=== PATIENT | female | born 1965 | race Caucasian/White ===

== ENCOUNTER 2017-03-19 22:14 | Inpatient (IN) | payer MEDICAID ==
[~2017-03-19] VITALS: Ht 162.6 cm; Wt 59.9 kg
--- NOTE | 2017-03-19 22:14 | NUR ---
MICHAEL ALS TO ER BED 3
--- NOTE | 2017-03-19 22:14 | NUR ---
Patient being evaluated by physician at bedside.
[2017-03-19 22:16] VITALS: BP 166/113
[2017-03-19] MEDS ORDERED: NACL 0.9% 1,000 ML IV ONE (22:16)
[2017-03-19] MEDS ORDERED: methylPREDNISolone SS 125 MG in WATER STERILE 2 ML IV ONE (22:20)
[2017-03-19] MEDS ORDERED: ALBUTEROL SULFATE/IPRATROPIU 3 ML SOL IH ONE (22:20)
[2017-03-19 22:30] VITALS: BP 166/113
[2017-03-19 22:46] LABS: BASOPHILS # (AUTO) 0.1 K/uL (0.00-0.22); BASOPHILS % (AUTO) 1.6 % (0.0-2.0); EOSINOPHILS # (AUTO) 0.3 K/uL (0-0.4); EOSINOPHILS % (AUTO) 3.3 % (0.0-4.0); HEMATOCRIT 37.4 % (36-48); HEMOGLOBIN 11.7 g/dL (12.0-16.0); LYMPHOCYTES # (AUTO) 1.5 K/uL (2.5-16.5); MEAN CORPUSCULAR HEMOGLOBIN 26 pg (27-31); MEAN CORPUSCULAR HGB CONC 31 g/dL (33-37); MEAN CORPUSCULAR VOLUME 85 fL (80-94); MONOCYTES # (AUTO) 0.5 K/uL (0.8-1.0); MONOCYTES % (AUTO) 5.6 % (1.7-9.3); NEUTROPHILS # (AUTO) 6.1 K/uL (1.8-7.7); NEUTROPHILS % (AUTO) 71.5 % (42.2-75.2); PLATELET COUNT (AUTO) 287 K/uL (140-450); RED BLOOD CELL COUNT(AUTO) 4.42 MIL/uL (4.20-5.40); RED CELL DISTRIBUTION WIDTH 13.9 % (11.6-13.7); WHITE BLOOD COUNT (AUTO) 8.5 K/uL (4.8-10.8)
[2017-03-19 23:00] LABS: ALBUMIN 2.9 g/dL (3.4-5.0); ANION GAP 12.2 (8-16); CALCIUM 8.2 mg/dL (8.5-10.1); CARBON DIOXIDE 26.2 mmol/L (21-32); POTASSIUM 4.4 mmol/L (3.5-5.1); TOTAL BILIRUBIN 0.9 mg/dL (0.0-1.0); TOTAL PROTEIN, SERUM 6.3 g/dL (6.4-8.2)
[2017-03-19] MEDS ORDERED: FUROSEMIDE 40 MG/4 ML VIAL IVP SCH (23:05)
[2017-03-19 23:10] LABS: LACTIC ACID 0.7 mmol/L (0.4-2.0)
[2017-03-19] MEDS ORDERED: ASPIRIN 325 MG TAB PO ONE (23:10)
[2017-03-19 23:15] LABS: BLOOD GAS BASE EXCESS -4.3 mmol/L (-2.0-2.0); BLOOD GAS HCO3 21.8 mmol/L; BLOOD GAS PCO2 43.9 mmHg (20-50); BLOOD GAS PH 7.314 (7.35-7.45); BLOOD GAS PO2 151.4 mmHg
[2017-03-19 23:15] LABS: INR 1.2 (0.8-1.2)
[2017-03-19 23:16] LABS: BLOOD GAS O2 SAT% 98.5 % (92.0-98.5)
[2017-03-19] MEDS ORDERED: NACL 0.9% 500 ML IV SCH (23:49)
[2017-03-19] MEDS ORDERED: HYDROcodone/APAP 5/325 MG 1 TAB TAB PO PRN (23:50)
[2017-03-19] MEDS ORDERED: DOCUSATE SODIUM 100 MG GELCAP PO PRN (23:50)
[2017-03-19] MEDS ORDERED: ONDANSETRON 4 MG/2 ML VIAL IVP PRN (23:50)
[2017-03-19] MEDS ORDERED: MORPHINE SULFATE 2 MG/ML SYR IVP PRN (23:50)
[2017-03-19] MEDS ORDERED: ACETAMINOPHEN 325 MG TAB PO PRN (23:50)
[2017-03-20] VITALS (10 sets, daily range): BP systolic 129–179; BP diastolic 85–141
[2017-03-20] MEDS ORDERED: ALBUTEROL SULFATE/IPRATROPIU 3 ML SOL IH PRN ×2 (00:25→07:25)
[2017-03-20 00:42] LABS: APPEARANCE,URINE CLEAR (CLEAR); BILIRUBIN,URINE NEGATIVE (NEGATIVE); BLOOD, URINE NEGATIVE (NEGATIVE); COLOR,URINE YELLOW (YELLOW); LEUKOCYTE ESTERASE ,URINE NEGATIVE (NEGATIVE); NITRITE, URINE NEGATIVE (NEGATIVE); PH,URINE 5.5 (5.0-9.0); PROTEIN,URINE TRACE (NEGATIVE); UGLUCOSE NEGATIVE (NEGATIVE); UROBILINOGEN,URINE 0.2 EU/dL (0.2 - 1)
[2017-03-20 00:54] LABS: BACTERIA,URINE FEW /HPF (None Seen); HYALINE CASTS, URINE 0-3 /LPF (None Seen); MUCUS,URINE 1+ /LPF (None Seen); RBC,URINE 0-5 (RARE) /HPF (0-5); SQUAMOUS EPITHELIAL CELL,UR 0-3 (FEW) /LPF (0-3 (FEW)); WBC,URINE 0-5 (RARE) /HPF (0-5)
[2017-03-20 00:57] LABS: CHOL/HDL RATIO 3.3 (1-4.5); FREE T4 (FREE THYROXINE) 0.93 ng/dL (0.76-1.46); THYROID STIMULATING HORMONE 3.29 uIU/mL (0.34-3.76)
[2017-03-20 00:57] LABS: AMPHETAMINE, URINE POS. ng/ml (NEG <=1000); BARBITURATE, URINE NEG. ng/ml (NEG <=200); BENZODIAZEPINE, URINE NEG. ng/mL (NEG <=200); CANNABINOID, URINE NEG. ng/mL (NEG <=50); COCAINE, URINE NEG. ng/mL (NEG <=300); OPIATE, URINE NEG. ng/mL (NEG <=2000); PHENCYCLIDINE SCREEN,URINE NEG. ng/mL (NEG <=25)
--- NOTE | 2017-03-20 01:15 | NUR ---
RECEIVED PATIENT FROM ER VIA [facility] WITH CHARGE NURSE BARRERA RN, BENNIE RN, AND LOI RT. PATIENT IS ABLE TO SELF AMBULATE WITH MINIMAL ASSISTANCE FROM [facility] ONTO ICU BED 6. PATIENT IS ON BIPAP WITH SETTINGS OF I/E 10/5, RATE 12, AND FIO2 40%. NO SIGNS OF RESPIRATORY DISTRESS OR SOB NOTED. BREATH SOUNDS ARE CLEAR UPON AUSCULTATION AND BOWEL SOUNDS ARE PRESENT. THERE IS A #22 IN THE PATIENT'S LEFT ANTECUBITAL. SITE IS DRY, INTACT, AND PATENT. PATIENT IS AFEBRILE. MRSA SWAB COLLECTED. ORIENTED PATIENT TO SURROUNDINGS, WITH PATIENT VERBALIZED UNDERSTANDING. EXPLAINED TO PATIENT TONIGHT'S PLAN OF CARE IS MEDICATION ADMINISTRATION, VITALS Q4H, AND SUPPLEMENTAL OXYGEN DELIVERY VIA BIPAP. PATIENT VERBALIZED UNDERSTANDING. HOB AT 30 DEGREES WITH BED IN LOW POSITION. WILL CONTINUE TO MONITOR PATIENT.
--- NOTE | 2017-03-20 01:45 | NUR ---
CHARGE NURSE VARSHA RN SPOKE TO COMMISSIONS COORDINATOR RESIDENT DR. MCLEAN REGARDING PATIENT'S BP 182/140. DOCTOR TO PUT IN NEW ORDERS. WILL FOLLOW UP WITH NEW DOCTOR'S ORDERS.
--- NOTE | 2017-03-20 02:00 | NUR ---
Patient will be admitted to care of DR FULTON. Admited to TELE. Will go to room ICU #6. Belongings list completed. Report to RAMOS GRAHAM.
--- NOTE | 2017-03-20 02:06 | NUR ---
PATIENT'S BP IS 189/127. NO NEW ORDERS ENTERED. PAGED WEAPONS MECHANIC FOR DR. VERDUGO TO FOLLOW UP FOR NEW ORDERS REGARDING PATIENT'S BLOOD PRESSURE.
--- NOTE | 2017-03-20 02:08 | NUR ---
SPOKE TO DR. MCELAN AND EXPLAINED TO HER PATIENT'S BP IS 189/127 AT 0200 AND NO NEW ORDERS HAVE BEEN ENTERED. DR. MCLEAN STATED SHE WILL PUT IN NEW ORDERS. WILL FOLLOW UP WITH DOCTOR'S ORDERS.
[2017-03-20] MEDS: hydrALAZINE 20 MG/ML VIAL IVP PRN ×2 (02:28→08:21)
--- NOTE | 2017-03-20 02:30 | NUR ---
PATIENT RESTING COMFORTABLY IN BED. PATIENT ON BIPAP WITH SETTINGS OF I/E 10/5, RATE 12, AND FIO2 40%. NO SIGNS OF SOB NOTED. HOB AT 30 DEGREES WITH BED IN LOW POSITION. CONTINUE TO MONITOR PATIENT.
[2017-03-20] MEDS ORDERED: hydrALAZINE 20 MG/ML VIAL ONE (02:31)
--- NOTE | 2017-03-20 04:30 | NUR ---
ASSISTED PATIENT ONTO BEDPAN TO VOID. OUTPUT OF 570ML NOTED. PERINEAL CARE PROVIDED. NO SIGNS OF RESPIRATORY DISTRESS OR SOB NOTED. WILL CONTINUE TO MONITOR PATIENT.
--- NOTE | 2017-03-20 05:45 | NUR ---
PATIENT RESTING COMFORTABLY IN BED. NO SIGNS OF SOB OR RESPIRATORY DISTRESS NOTED. HOB AT 30 DEGREES WITH BED IN LOW POSITION. WILL CONTINUE TO MONITOR PATIENT.
--- NOTE | 2017-03-20 06:00 | NUR ---
DOG LICENSE OFFICER SUPERVISOR GRACIE AT BEDSIDE FOR SCHEDULED LAB DRAWS.
--- NOTE | 2017-03-20 06:30 | NUR ---
REPORT GIVEN TO CHARGE NURSE ROSANA RN FOR CONTINUITY OF CARE. PATIENT WILL BE TRANSFERRED TO MEDICAL-SURGICAL/TELEMETRY UNIT ROOM 105A.
[2017-03-20 06:32] LABS: ANION GAP 12.9 (8-16); CALCIUM 8.1 mg/dL (8.5-10.1); CREATININE 0.8 mg/dL (0.6-1.3); POTASSIUM 3.9 mmol/L (3.5-5.1)
--- NOTE | 2017-03-20 06:32 | NUR ---
PATIENT TRANSFERRED OFF UNIT TO [facility] ROOM 105A WITH OPERATING ROOM AIDE MIRNA GRAHAM, JOHNNY TRAVIS, LYNDA BRADLEYN, AND NUVIA MACARIO.
--- NOTE | 2017-03-20 06:35 | NUR ---
RECEIVED PT FROM ICU TRANSFER FROM [facility]. PT IN STABLE CONDITION. AWAKE,ALERT AND ORIENTED X4. ON TELE-ST. BEDREST. IVF ON LT AC 318. CLEAR AND INTACT. RT HERE UPON TRANSFER, BIPAP OFF, PLACED ON 023L/NC. O2 SAT 99%-1005. BP 151/98. NO DISCOMFORT NOR PAIN NOTED. PLACED COMFORTABLY IN BED. CALL LIGHT PLACED WITHIN EASY REACH. INSTRUCTED TO CALL IF NEED ASSISTANCE. WILL CONTINUE TO MONITOR.
[2017-03-20 06:43] LABS: MAGNESIUM 1.6 mg/dL (1.8-2.4)
--- NOTE | 2017-03-20 07:07 | NUR ---
RECEIVED REPORT FROM NIGHT RN. PT RESTING IN BED. AAOX4. NO S/S OF ACUTE DISTRESS. ON O2 3L NC. IV SITE PATENT AND INTACT. CALL LIGHT WITHIN REACH. SAFETY MEASURES ENSURED. WILL CONTINUE TO MONITOR.
[2017-03-20] MEDS ORDERED: MAG SULF 2000 MG/WATER PREMIX 50 ML IV SCH (07:38)
[2017-03-20] MEDS: PANTOPRAZOLE 40 MG INJ VIAL IVP SCH (08:20)
[2017-03-20] MEDS: FUROSEMIDE 40 MG/4 ML VIAL IVP SCH (08:21)
[2017-03-20] MEDS: FAMOTIDINE 20 MG TAB PO SCH (08:22)
[2017-03-20] MEDS: DOCUSATE SODIUM 100 MG GELCAP PO SCH ×2 (08:22→20:35)
[2017-03-20] MEDS ORDERED: FUROSEMIDE 20 MG/2 ML VIAL IVP SCH (09:00)
--- NOTE | 2017-03-20 09:11 | NUR ---
PATIENT HAS BEEN SCREENED AND CATEGORIZED MODERATE NUTRITION RISK. PATIENT WILL BE SEEN WITHIN 3-5 DAYS OF ADMISSION. 03/22/17-03/24/[address] Addendum: 03/21/17 at [address] [facility] CONSULT RECEIVED ON 03/20/17 - 1224 FOR "MALNUTRITION". PATIENT WILL BE SEEN WITHIN 1-2 DAYS OF ENTERED CONSULT. 03/20/17-03/21/[address]
--- NOTE | 2017-03-20 10:40 | NUR ---
PT RESTING IN BED. NO S/S OF ACUTE DISTRESS. ON O2 3L NC. CALL LIGHT WITHIN REACH. SAFETY MEASURES ENSURED. WILL CONTINUE TO MONITOR.
[2017-03-20] MEDS ORDERED: ALBUTEROL SULFATE/IPRATROPIU 3 ML SOL IH SCH (11:00)
--- NOTE | 2017-03-20 11:51 | NUR ---
PT SLEEPING IN BED. NO S/S OF ACUTE DISTRESS. ON O2 3L NC. CALL LIGHT WITHIN REACH. SAFETY MEASURES ENSURED. WILL CONTINUE TO MONITOR.
[2017-03-20] MEDS: methylPREDNISolone SS 125 MG/2 ML VIAL IVP SCH ×2 (13:16→20:34)
--- NOTE | 2017-03-20 14:03 | NUR ---
PT RESTING IN BED. NO S/S OF ACUTE DISTRESS. PT DENIES PAIN. CALL LIGHT WITHIN REACH. SAFETY MEASURES ENSURED. WILL CONTINUE TO MONITOR.
[2017-03-20] MEDS ORDERED: ENALAPRILAT 2.5 MG/2 ML VIAL IVP SCH (14:12)
--- NOTE | 2017-03-20 14:26 | NUR ---
NOTIFIED MD ABOUT BP. STATED OKAY TO HOLD VASOTEC.
[2017-03-20] MEDS ORDERED: INSULIN LISPRO SLIDING SCALE 100 UNITS/ML VIAL SUBQ PRN (16:35)
[2017-03-20] MEDS ORDERED: DEXTROSE 50% 50 ML SYR IVP PRN (16:35)
--- NOTE | 2017-03-20 17:00 | NUR ---
PT SLEEPING IN BED. NO S/S OF ACUTE DISTRESS. CALL LIGHT WITHIN REACH. SAFETY MEASURES ENSURED. WILL CONTINUE TO MONITOR.
--- NOTE | 2017-03-20 19:12 | NUR ---
ENDORSED PLAN OF CARE TO NIGHT RN. PT REMAINS STABLE.
--- NOTE | 2017-03-20 19:30 | NUR ---
RECEIVED PATIENT FROM DAY RN AT BEDSIDE, PATIENT IS RESTING IN BED, AAOX4 ON ROOM AIR, NO SOB OR SIGN OF DISTRESS AT THIS TIME, IV TO LEFT AC PATENT AND INTACT, PATIENT DENIES PAIN, SKIN INTACT, DISCUSSED PLAN OF CARE WITH PATIENT, PATIENT VERBALIZED UNDERSTANDING, CALL LIGHT WITHIN REACH. SAFETY MEASURES CHECKED, CALL LIGHT WITHIN REACH. WILL CONTINUE TO MONITOR.
[2017-03-20] MEDS: METOPROLOL 25 MG TAB PO SCH (20:35)
[2017-03-20] MEDS: BLOOD GLUCOSE MONITORING 1 DEV DEV FS SCH (20:49)
--- NOTE | 2017-03-20 20:50 | NUR ---
PM MEDS ADMINISTERED, PATIENT TOLERATED WELL, PATIENT RESTING IN BED WITH O2 AT 3L VIA NC, CALL LIGHT WITHIN REACH. WILL CONTINUE TO MONITOR
--- NOTE | 2017-03-20 22:07 | NUR ---
PAGED AND SPOKE WITH DR ROBERTSON REGARDING TEST RESULTS OF PATIENT US ARTERIAL BILATERAL LOWER EXTREMITIES, NO NEW ORDERS GIVEN PATIENT IS RECEIVING HEPARIN SQ.
[2017-03-21] VITALS: BP 161/109
--- NOTE | 2017-03-21 | NUR ---
PATIENT SLEEPING, EASILY AWOKEN, BP ELEVATED TO 161/109, WILL ADMINISTER MEDICATION PER MD ORDER, ALL OTHER VITALS STABLE, PATIENT ON ROOM AIR WITH O2 SAT AT 95%, CALL LIGHT WITHIN REACH. WILL CONTINUE TO MONITOR.
[2017-03-21] MEDS: hydrALAZINE 20 MG/ML VIAL IVP PRN (00:15)
--- NOTE | 2017-03-21 02:30 | NUR ---
PATIENT SLEEPING, NO SIGN OF DISTRESS CALL LIGHT WITHIN REACH. WILL CONTINUE TO MONITOR
[2017-03-21 04:00] VITALS: BP 148/82
--- NOTE | 2017-03-21 04:15 | NUR ---
VITAL SIGNS STABLE, NO SOB OR SIGN OF DISTRESS, CALL LIGHT WITHIN REACH. WILL CONTINUE TO MONITOR
[2017-03-21] MEDS: methylPREDNISolone SS 125 MG/2 ML VIAL IVP SCH (05:27)
[2017-03-21 06:37] LABS: BASOPHILS # (AUTO) 0.1 K/uL (0.00-0.22); BASOPHILS % (AUTO) 0.4 % (0.0-2.0); EOSINOPHILS # (AUTO) 0.3 K/uL (0-0.4); EOSINOPHILS % (AUTO) 2.1 % (0.0-4.0); HEMOGLOBIN 12.6 g/dL (12.0-16.0); LYMPHOCYTES # (AUTO) 0.7 K/uL (2.5-16.5); LYMPHOCYTES % (AUTO) 5.1 % (20.5-51.1); MEAN CORPUSCULAR HEMOGLOBIN 28 pg (27-31); MEAN CORPUSCULAR HGB CONC 33 g/dL (33-37); MEAN CORPUSCULAR VOLUME 84 fL (80-94); MONOCYTES # (AUTO) 0.1 K/uL (0.8-1.0); MONOCYTES % (AUTO) 0.8 % (1.7-9.3); NEUTROPHILS % (AUTO) 91.6 % (42.2-75.2); PLATELET COUNT (AUTO) 309 K/uL (140-450); RED BLOOD CELL COUNT(AUTO) 4.52 MIL/uL (4.20-5.40); RED CELL DISTRIBUTION WIDTH 14.1 % (11.6-13.7); WHITE BLOOD COUNT (AUTO) 14.2 K/uL (4.8-10.8)
[2017-03-21 07:06] LABS: MAGNESIUM 2.1 mg/dL (1.8-2.4); PHOSPHORUS 3.8 mg/dL (2.5-4.9)
[2017-03-21] MEDS: BLOOD GLUCOSE MONITORING 1 DEV DEV FS SCH ×4 (07:07→21:00)
[2017-03-21 07:08] LABS: ANION GAP 10.1 (8-16); CALCIUM 8.6 mg/dL (8.5-10.1); CARBON DIOXIDE 29.1 mmol/L (21-32); CREATININE 0.8 mg/dL (0.6-1.3); POTASSIUM 4.2 mmol/L (3.5-5.1)
--- NOTE | 2017-03-21 07:30 | NUR ---
ENDORSED PATIENT TO DAY RN AT BEDSIDE, PATIENT IN STABLE CONDITION
[2017-03-21 08:00] VITALS: BP 140/80
--- NOTE | 2017-03-21 08:00 | NUR ---
RECEIVED REPORT FROM LATOSHA GRAHAM FOR CONTINUITY OF CARE. PATIENT SLEEPING BUT EASILY AWAKE . NO S/S OF RESP DISTRESS NOTED NO COMPLAIN OF PAIN ABLE TO MAKE NEEDS KNOWN . IV LINE LEFT AC GAUGE 20 INTACT AND PATENT. IVF INFUSING WELL. PLAN OF CARE DISCUSSED WITH THE PATIENT VITALS STABLE WILL CONTINUE TO MONITOR.
[2017-03-21] MEDS: METOPROLOL 25 MG TAB PO SCH ×2 (09:24→21:45)
[2017-03-21] MEDS: ECOTRIN 81 MG TABEC PO SCH (09:24)
[2017-03-21] MEDS: DOCUSATE SODIUM 100 MG GELCAP PO SCH ×2 (09:25→21:43)
[2017-03-21] MEDS: LISINOPRIL 20 MG TAB PO SCH (09:25)
[2017-03-21] MEDS: FUROSEMIDE 40 MG/4 ML VIAL IVP SCH (09:25)
[2017-03-21] MEDS: FAMOTIDINE 20 MG TAB PO SCH (09:25)
[2017-03-21] MEDS: PANTOPRAZOLE 40 MG INJ VIAL IVP SCH (09:25)
--- NOTE | 2017-03-21 09:35 | NUR ---
DUE MEDS GIVEN TOLERATED WELL . AMBULATE TO BATHROOM NO WEAKNESS NOTED , SELF MORNING CARE DONE , ATE BREAKFAST GOOD APPETITE.
--- NOTE | 2017-03-21 12:00 | NUR ---
BLOOD SUGAR 175 SLIDING SCALE COVERAGE 2 UNITS GIVEN VITALS STABLE AT THIS TIME
[2017-03-21 12:31] VITALS: BP 127/74
[2017-03-21] MEDS: methylPREDNISolone SS 40 MG/ML VIAL IVP SCH ×2 (12:49→21:43)
--- NOTE | 2017-03-21 14:00 | NUR ---
RESTING WELL, RELAXED AT THIS TIME.
--- NOTE | 2017-03-21 14:14 | NUR ---
03/21/17 RD INITIAL ASSESSMENT COMPLETED PLEASE REFER TO NUTRITION ASSESSMENT UNDER CARE ACTIVITY FOR ESTIMATED NUTRITIONAL NEEDS. 1. CHANGE DIET TO 60 G CONSISTENT CARBOHYDRATE, CARDIAC DIET 2. RD TO FOLLOW-UP 3-5 DAYS; MODERATE RISK RED LIAO RD
[2017-03-21 16:06] VITALS: BP 125/88
--- NOTE | 2017-03-21 16:45 | NUR ---
BLOOD SUGAR 118 NO COVERAGE NEEDED , RECEIVED FROM LAB MRSA NARES + ISOLATION PRECAUTION INITIATED.
--- NOTE | 2017-03-21 19:33 | NUR ---
SAFETY MAINTAINED CALL LIGHT IN REACH , ENDORSE THE CARE TO ARLEN GRAHAM
--- NOTE | 2017-03-21 19:35 | NUR ---
RECEIVED PT FROM KYLIE RN PT AZERI SPEAKER AAOX4 AMBULATORY WITH SOB TO LITTLE EXERTION, ON TELMETRY ST INITIAL ASSESSMENT DONE
[2017-03-21 20:00] VITALS: BP 138/92
[2017-03-21] MEDS ORDERED: guaiFENesin/CODEINE 100/10MG 5 ML UDC PO PRN (20:10)
[2017-03-21] MEDS ORDERED: MUPIROCIN 2% OINT 22 GM TUBE TP SCH (21:00)
[2017-03-21] MEDS ORDERED: SIMVASTATIN 20 MG TAB PO SCH (21:00)
--- NOTE | 2017-03-21 21:30 | NUR ---
BLOOD SUGAR TEST 126 PT IS PROVIDED WITH HS SNACK REMAIN STABLE, ON TELEMETRY ST
[2017-03-22] VITALS: BP 126/90
--- NOTE | 2017-03-22 | NUR ---
PT SLEEPING WELL NOT DISTRESS NOTED AT THIS TIME
[2017-03-22 04:00] VITALS: BP 143/93
--- NOTE | 2017-03-22 04:00 | NUR ---
PT VOIDING WELL AMBULATES TO THE RESTROOM, NOT DISTRESS NOTED ON TELEMETRY SR
[2017-03-22] MEDS: methylPREDNISolone SS 40 MG/ML VIAL IVP SCH (05:17)
[2017-03-22 06:08] LABS: BASOPHILS # (AUTO) 0.2 K/uL (0.00-0.22); BASOPHILS % (AUTO) 1.3 % (0.0-2.0); EOSINOPHILS # (AUTO) 0.2 K/uL (0-0.4); EOSINOPHILS % (AUTO) 1.1 % (0.0-4.0); HEMATOCRIT 40.2 % (36-48); HEMOGLOBIN 12.9 g/dL (12.0-16.0); LYMPHOCYTES # (AUTO) 0.7 K/uL (2.5-16.5); LYMPHOCYTES % (AUTO) 5.3 % (20.5-51.1); MEAN CORPUSCULAR HEMOGLOBIN 28 pg (27-31); MEAN CORPUSCULAR HGB CONC 32 g/dL (33-37); MEAN CORPUSCULAR VOLUME 85 fL (80-94); MONOCYTES # (AUTO) 0.2 K/uL (0.8-1.0); MONOCYTES % (AUTO) 1.3 % (1.7-9.3); NEUTROPHILS # (AUTO) 12.4 K/uL (1.8-7.7); PLATELET COUNT (AUTO) 347 K/uL (140-450); RED CELL DISTRIBUTION WIDTH 14.4 % (11.6-13.7)
[2017-03-22 06:48] LABS: ANION GAP 7.6 (8-16); CALCIUM 8.4 mg/dL (8.5-10.1); CARBON DIOXIDE 35.2 mmol/L (21-32); CREATININE 0.9 mg/dL (0.6-1.3); POTASSIUM 4.8 mmol/L (3.5-5.1)
[2017-03-22 06:53] LABS: WHITE BLOOD COUNT (AUTO) 13.7 K/uL (4.8-10.8)
[2017-03-22] MEDS: BLOOD GLUCOSE MONITORING 1 DEV DEV FS SCH ×2 (06:57→12:23)
--- NOTE | 2017-03-22 06:57 | NUR ---
BLOOD SUGAR TEST 127, PT REMAIN STABLE AT THIS TIME
[2017-03-22 07:05] LABS: MAGNESIUM 2.1 mg/dL (1.8-2.4); PHOSPHORUS 3.7 mg/dL (2.5-4.9)
[2017-03-22] MEDS ORDERED: FUROSEMIDE 20 MG/2 ML VIAL IVP SCH (07:08)
--- NOTE | 2017-03-22 07:12 | NUR ---
RECEIVED REPORT FROM CATH LAB MANAGER NURSE AT BEDSIDE. PT IS ALERT AWAKE AND ORIENTED. INTRODUCED MYSELF AND UPDATED THE BOARD. PT HAS IV ON L AC 18 SL. PT C/O CHEST PAIN AND HEADACHE. REFUSED PAIN MED. WILL ADMINISTERED LASIX ONE TIME ORDER. BP 155/99, PULSE 92. CALL LIGHT WITHIN REACH. WILL CONTINUE TO MONITOR.
[2017-03-22 08:00] VITALS: BP 155/99
--- NOTE | 2017-03-22 08:20 | NUR ---
L AC NOT FLUSHING. REMOVED, CANNULA INTACT. REINSERTED IN R AC 22 G. PT TOLERATED WELL.
[2017-03-22] MEDS ORDERED: CHLORHEXADINE GLUC 2% CLOTH TP SCH (09:00)
[2017-03-22] MEDS ORDERED: MUPIROCIN 2% OINT 22 GM TUBE TP SCH (09:20)
--- NOTE | 2017-03-22 09:20 | NUR ---
RECHECKED BP 153/86, PULSE 96. ADMINISTERED MORNING MEDS. PT TOLERATED WELL.
[2017-03-22] MEDS: PANTOPRAZOLE 40 MG INJ VIAL IVP SCH (09:25)
[2017-03-22] MEDS: FUROSEMIDE 40 MG/4 ML VIAL IVP SCH (09:25)
[2017-03-22] MEDS: DOCUSATE SODIUM 100 MG GELCAP PO SCH (09:26)
[2017-03-22] MEDS: FAMOTIDINE 20 MG TAB PO SCH (09:26)
[2017-03-22] MEDS: LISINOPRIL 20 MG TAB PO SCH (09:26)
[2017-03-22] MEDS: ECOTRIN 81 MG TABEC PO SCH (09:26)
[2017-03-22] MEDS: METOPROLOL 25 MG TAB PO SCH (09:26)
--- NOTE | 2017-03-22 10:45 | NUR ---
DR. LOMELI GAVE D/C INSTRUCTIONS AT BEDSIDE USING TELEPHONE TRANSLATION. RECHECKED BP 147/80, PULSE 96. PT STATED DAUGHTER WILL BE PICKING HER UP BETWEEN 2-3. WILL PLAN DC AND CONTINUE TO MONITOR.
[2017-03-22] MEDS ORDERED: FURO40TA9 PO (11:39)
[2017-03-22] MEDS ORDERED: ROBAC PO (11:39)
[2017-03-22] MEDS ORDERED: LISI-420 PO (11:39)
[2017-03-22] MEDS ORDERED: BACTO TP (11:39)
[2017-03-22] MEDS ORDERED: CHLO120L4 TP (11:39)
[2017-03-22] MEDS ORDERED: METO25TA PO (11:39)
[2017-03-22] MEDS ORDERED: ALBU0.0912 IH (11:45)
[2017-03-22] MEDS ORDERED: METH4TAB3 PO (11:45)
[2017-03-22 12:00] VITALS: BP 131/88
--- NOTE | 2017-03-22 12:00 | NUR ---
PT IS RESTING IN BED. NO COMPLAINTS AT THIS TIME. CALL LIGHT WITHIN REACH. WILL CONTINUE TO MONITOR.
[2017-03-22 13:04] VITALS: BP 155/99
--- NOTE | 2017-03-22 14:30 | NUR ---
PT IS SLEEPING IN BED. NO DISTRESS NOTED. CALL LIGHT WITHIN REACH. WILL CONTINUE TO MONITOR.
--- NOTE | 2017-03-22 15:13 | NUR ---
CALLED PT'S DAUGHTER. 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
--- NOTE | 2017-03-22 15:40 | NUR ---
WENT OVER D/C PAPERWORK WITH PT AND HER GRANDDAUGHTER. PT VERBALIZED UNDERSTANDING. PT SIGNED ALL APPROPRIATE PAPERWORK.
--- NOTE | 2017-03-22 15:50 | NUR ---
PT REFUSED WHEELCHAIR. WALKED WITH PT TO CAR, ACCOMPANIED BY DAUGHTER AND GRANDDAUGHTER. IV REMOVED CANNULA INTACT, ALL BANDS REMOVED. PT IN STABLE CONDITION.
[2017-03-22] MEDS ORDERED: ATOR20TA PO (22:37)
[2017-03-22] MEDS ORDERED: ASPI81CT89 PO (22:37)
== END 2017-03-22 15:50 | disposition home or self-care (01) | DRG 194 ==
LOC: MED 22:14 → MIC 23:51 → MTU 03-20 06:35
PROVIDERS: ADMIT Family Medicine; ATTEND Family Medicine
PROC: 5A09357 Assistance with Respiratory Ventilation, Less than 24 Consecutive Hours, Continuous Positive Airway Pressure (ICD-10-PCS; principal; 2017-03-19)
DX: I13.0 Hypertensive heart and chronic kidney disease with heart failure and stage 1 through stage 4 chronic kidney disease, or unspecified chronic kidney disease (principal); J96.00 Acute respiratory failure, unspecified whether with hypoxia or hypercapnia; N17.0 Acute kidney failure with tubular necrosis; E44.0 Moderate protein-calorie malnutrition; E11.51 Type 2 diabetes mellitus with diabetic peripheral angiopathy without gangrene; E11.22 Type 2 diabetes mellitus with diabetic chronic kidney disease; D68.69 Other thrombophilia; E11.65 Type 2 diabetes mellitus with hyperglycemia; I16.0 Hypertensive urgency; D64.9 Anemia, unspecified; I50.43 Acute on chronic combined systolic (congestive) and diastolic (congestive) heart failure; R74.0 Nonspecific elevation of levels of transaminase and lactic acid dehydrogenase [LDH]; I42.0 Dilated cardiomyopathy; M94.0 Chondrocostal junction syndrome [Tietze]; J45.909 Unspecified asthma, uncomplicated; N18.9 Chronic kidney disease, unspecified; E86.0 Dehydration; E88.09 Other disorders of plasma-protein metabolism, not elsewhere classified; E83.42 Hypomagnesemia; Z53.29 Procedure and treatment not carried out because of patient's decision for other reasons; Z68.22 Body mass index [BMI] 22.0-22.9, adult; Z90.721 Acquired absence of ovaries, unilateral; Z56.0 Unemployment, unspecified; Z22.322 Carrier or suspected carrier of Methicillin resistant Staphylococcus aureus; Z86.018 Personal history of other benign neoplasm
CPT/HCPCS: 36415; 36600; 71010; 80048; 80053; 80305; 81001; 82150; 82803; 82948; 83036; 83605; 83690; 83735; 83880; 84100; 84439; 84443; 84484; 85025; 85610; 85730; 87040; 87081; 87086; 93005; 93925; 93970; 94640; 94660; 96374; 96375; 99291; C9113; J0360; J1644; J1815; J1940; J2920; J2930; J3475; J3490; J7030; J7620; Q0092

== ENCOUNTER 2017-06-15 20:50 | Emergency (ER) | payer MEDICAID ==
[~2017-06-15] VITALS: Ht 154.9 cm; Wt 62.6 kg
[~2017-06-15 20:50] MED LIST: ALBU0.0912 IH; ASPI81CT89 PO; ATOR20TA PO; BACTO TP; CHLO120L4 TP; FURO40TA9 PO; LISI-420 PO; METH4TAB3 PO; METO25TA PO; ROBAC PO
[2017-06-15 21:04] VITALS: BP 99/70
--- NOTE | 2017-06-15 22:39 | NUR ---
TO [facility] FROM [facility]
--- NOTE | 2017-06-15 23:06 | NUR ---
Patient being evaluated by physician.
[2017-06-15] MEDS ORDERED: ALBUTEROL SULFATE/IPRATROPIU 3 ML SOL IH ONE (23:15)
[2017-06-16 00:15] VITALS: BP 101/62
--- NOTE | 2017-06-16 00:15 | NUR ---
Patient discharged with v/s stable. Written and verbal after care instructions given and explained. Patient alert, oriented and verbalized understanding of instructions. Ambulatory with steady gait. All questions addressed prior to discharge. ID band removed. Patient advised to follow up with PMD. Rx of Albuterol inhaler given. Patient educated on indication of medication including possible reaction and side effects. Opportunity to ask questions provided and answered.
== END 2017-06-16 00:15 | disposition home or self-care (01) ==
LOC: MED 20:50
DX: J45.909 Unspecified asthma, uncomplicated (principal); E11.9 Type 2 diabetes mellitus without complications; I10 Essential (primary) hypertension
CPT/HCPCS: 82948; 94640; 99283; J7620

== ENCOUNTER 2017-08-17 05:07 | Inpatient (IN) | payer MEDICAID ==
[2017-08-17] VITALS (9 sets, daily range): BP systolic 148–189; BP diastolic 90–134
[~2017-08-17] VITALS: Ht 157.5 cm; Wt 57.7 kg
--- NOTE | 2017-08-17 05:11 | NUR ---
Patient ambulated to bed 11. RN evaluating patient at bedside.
[2017-08-17] MEDS ORDERED: ALBUTEROL SULFATE/IPRATROPIU 3 ML SOL IH ONE ×2 (05:20)
[2017-08-17] MEDS ORDERED: methylPREDNISolone SS 125 MG in WATER STERILE 2 ML IM ONE (05:20)
--- NOTE | 2017-08-17 05:25 | NUR ---
PT HAS ASTHMA, C/O SHALLOW BREATHING WITH AUDIBLE WHEEZING SOUNDS. INHALER AT HOME INEFFECTIVE. PT DENIES N/V/D; AAOX4 WITH EVEN AND STEADY GAIT; HR EVEN AND REGULAR; PT DENIES ANY FEVER, CP AT THIS TIME; PATIENT STATES PAIN OF 8/10 AT THIS TIME; VSS; PATIENT POSITIONED FOR COMFORT; HOB ELEVATED; BEDRAILS UP X2; BED DOWN. ER MD MADE AWARE OF PT STATUS.
--- NOTE | 2017-08-17 05:30 | NUR ---
Respiratory Therapist at bedside for respiratory intervention. Patient tolerated .
[2017-08-17 06:23] LABS: BARBITURATE, URINE NEG. ng/ml (NEG <=200); BENZODIAZEPINE, URINE NEG. ng/mL (NEG <=200); CANNABINOID, URINE NEG. ng/mL (NEG <=50); COCAINE, URINE NEG. ng/mL (NEG <=300); OPIATE, URINE NEG. ng/mL (NEG <=2000); PHENCYCLIDINE SCREEN,URINE NEG. ng/mL (NEG <=25)
[2017-08-17] MEDS ORDERED: ALBUTEROL 0.083% 2.5 MG/3 ML NEBU INH ONE (06:45)
--- NOTE | 2017-08-17 06:56 | NUR ---
PT STATES SOB POST TX WILL NOTIFY NURSE OR DOCTOR
[2017-08-17] MEDS ORDERED: NACL 0.9% 1,000 ML IV ONE (07:05)
[2017-08-17 07:19] LABS: BASOPHILS # (AUTO) 0.2 K/uL (0.00-0.22); EOSINOPHILS # (AUTO) 0.1 K/uL (0-0.4); EOSINOPHILS % (AUTO) 1.7 % (0.0-4.0); HEMOGLOBIN 12.8 g/dL (12.0-16.0); LYMPHOCYTES # (AUTO) 0.8 K/uL (2.5-16.5); LYMPHOCYTES % (AUTO) 10.2 % (20.5-51.1); MEAN CORPUSCULAR HEMOGLOBIN 28 pg (27-31); MEAN CORPUSCULAR HGB CONC 33 g/dL (33-37); MEAN CORPUSCULAR VOLUME 86 fL (80-94); MONOCYTES # (AUTO) 0.2 K/uL (0.8-1.0); NEUTROPHILS # (AUTO) 6.5 K/uL (1.8-7.7); NEUTROPHILS % (AUTO) 82.1 % (42.2-75.2); PLATELET COUNT (AUTO) 287 K/uL (140-450); RED BLOOD CELL COUNT(AUTO) 4.52 MIL/uL (4.20-5.40); WHITE BLOOD COUNT (AUTO) 7.8 K/uL (4.8-10.8)
[2017-08-17 07:28] LABS: ANION GAP 13.6 (8-16); CARBON DIOXIDE 26.7 mmol/L (21-32); POTASSIUM 4.3 mmol/L (3.5-5.1)
[2017-08-17] MEDS ORDERED: ONDANSETRON 4 MG/2 ML VIAL IVP PRN (07:45)
[2017-08-17] MEDS ORDERED: ACETAMINOPHEN 325 MG TAB PO PRN (07:45)
[2017-08-17] MEDS ORDERED: NACL 0.9% 1,000 ML IV SCH (07:45)
[2017-08-17] MEDS ORDERED: HYDROcodone/APAP 7.5/325 MG 1 TAB PO PRN (07:45)
--- NOTE | 2017-08-17 07:48 | NUR ---
MADE DR STARR AWARE OF PATIENT'S BP OF 194/128. DR STARR CALLED DR BARROW AND INFORMED HER ABOUT PATIENT'S VITAL SIGNS AND HX. PATIENT OK TO BE ADMITTED
[2017-08-17] MEDS ORDERED: ASPIRIN 325 MG TAB PO SCH (08:00)
--- NOTE | 2017-08-17 08:10 | NUR ---
PT ARRIVED ON UNIT. PT IS AAOX4 AND SHOWS NO S/S OF ACUTE DISTRESS ON ROOM AIR. PT BP IS 187/116 HR 113. ER NURSE STATES DR BARROW AND DR VAZQUEZ ARE AWARE OF HIGH BLOOD PRESSURE. SKIN IS INTACT. PT DENIES PAIN. IV NOTED ON THE R AC WITH IVF'S INFUSING WELL. ON TELE MONITOR. PT IS AMB. PT WAS EXPLAINED POC FOR TODAY AND VERBALIZED UNDERSTANDING. WILL CONTINUE TO MONITOR.
--- NOTE | 2017-08-17 08:13 | NUR ---
Patient will be admitted to care of DR DICKSON. Admited to [facility]. Will go to room 113. Belongings list completed. Report to [facility]O.
--- NOTE | 2017-08-17 08:20 | NUR ---
DR GOLDMAN MADE AWARE OF PT HIGH BP OF 181/[address] TO SEE PT.
[2017-08-17 08:57] LABS: PROTHROMBIN TIME 12.2 secs (10.8-13.4)
[2017-08-17] MEDS ORDERED: LISINOPRIL 5 MG TAB PO SCH (09:00)
[2017-08-17] MEDS ORDERED: METOPROLOL 25 MG TAB PO SCH ×2 (09:00)
[2017-08-17] MEDS ORDERED: ASPIRIN 81 MG TAB.CHEW PO SCH (09:00)
--- NOTE | 2017-08-17 09:00 | NUR ---
DR VAZQUEZ STATED HE PLACED IN ORDERS FOR PT HIGH BLOOD PRESSURE. WILL ADMINISTER WHEN MEDICATIONS ARE READY.
--- NOTE | 2017-08-17 09:15 | NUR ---
PATIENT HAS BEEN SCREENED AND CATEGORIZED MODERATE NUTRITION RISK. PATIENT WILL BE SEEN WITHIN 3-5 DAYS OF ADMISSION. 08/19/17-08/21/[address]
[2017-08-17] MEDS: DOCUSATE SODIUM 100 MG GELCAP PO SCH ×2 (09:39→20:21)
[2017-08-17] MEDS: ASPIRIN 81 MG TAB.CHEW PO SCH (09:39)
[2017-08-17 09:40] LABS: FREE T4 (FREE THYROXINE) 1.26 ng/dL (0.76-1.46); MAGNESIUM 1.8 mg/dL (1.8-2.4); THYROID STIMULATING HORMONE 2.28 uIU/mL (0.34-3.74)
[2017-08-17] MEDS: LISINOPRIL 20 MG TAB PO SCH (09:40)
[2017-08-17] MEDS: FUROSEMIDE 40 MG TAB PO SCH (09:40)
[2017-08-17] MEDS: ATORVASTATIN 20 MG TAB PO SCH (09:40)
--- NOTE | 2017-08-17 09:45 | NUR ---
ADMINISTERED SCHEDULED MEDICATIONS. PT BP IS 189/134 HR 116. PT HAS PRN NITROGLYCERIN 0.4 MG SL. WILL ADMINISTER. PT DENIES CHEST PAIN AND HEADACHE. WILL CONTINUE TO MONITOR.
[2017-08-17] MEDS ORDERED: DEXTROSE 50% 50 ML SYR IVP PRN (09:50)
[2017-08-17] MEDS: NITROGLYCERIN 0.4 MG TAB SL PRN ×2 (10:10→16:17)
--- NOTE | 2017-08-17 10:30 | NUR ---
PT BEING SEEN BY MECHANICAL SYSTEMS CONTROL ENGINEER.
--- NOTE | 2017-08-17 11:00 | NUR ---
PATIENT BEING SEEN BY DR ESTRADA
[2017-08-17] MEDS: ALBUTEROL SULFATE/IPRATROPIU 3 ML SOL IH SCH ×2 (11:07→18:38)
[2017-08-17 11:34] LABS: CHOL/HDL RATIO 2.3 (1-4.5)
[2017-08-17] MEDS: BLOOD GLUCOSE MONITORING 1 DEV DEV FS SCH ×3 (11:41→20:32)
--- NOTE | 2017-08-17 13:15 | NUR ---
PT IS SLEEPING AND SHOWS NO S/S OF ACUTE DISTRESS ON ROOM AIR. WILL CONTINUE TO MONITOR.
--- NOTE | 2017-08-17 14:45 | NUR ---
PT IS SLEEPING AND SHOWS NO S/S OF ACUTE DISTRESS ON ROOM AIR. THE BED IS IN LOW POSITION WITH CALL LIGHT WITHIN REACH. IV SL.
--- NOTE | 2017-08-17 16:20 | NUR ---
PT BP IS 161/110 AND HR 97. PT HAS NITROGLYCERIN 0.4 MG SL. PT BP WILL BE REASSESSED IN ONE HOUR.
--- NOTE | 2017-08-17 17:30 | NUR ---
PT BP IS 148/98 HR 89. PT DENIES CHEST PAIN AND SOB. PT IS AAOX4 AND SHOWS NO S/S OF ACUTE DISTRESS ON ROOM AIR. PT IS SITTING UP AND EATING DINNER TOLERATING DIET WELL. BED IN LOW POSITION WITH CALL LIGHT WITHIN REACH.
--- NOTE | 2017-08-17 19:05 | NUR ---
GAVE PT REPORT AT BEDSIDE TO NIGHT NURSE. PT ENDORSED IN STABLE CONDITION.
--- NOTE | 2017-08-17 19:06 | NUR ---
RECEIVED REPORT FROM DAY NURSE, PT IN STABLE CONDITION. NO S/S OF DISTRESS NOTED. PT WARM AND DRY. AAOX4, ON RA. IV TO R AC 20G, INFUSING WELL, PATENT AND INTACT. SKIN INTACT. RESPIRATIONS ARE EVEN AND UNLABORED. BOWEL SOUNDS PRESENT. INITIAL ASSESSMENT COMPLETED, PLAN OF CARE DISCUSSED WITH PT AT THE BEDSIDE, VERBALIZED UNDERSTANDING. ALL SAFETY PRECAUTIONS MET, CALL LIGHT WITHIN REACH, WILL CONTINUE TO MONITOR
[2017-08-17 19:24] LABS: APPEARANCE,URINE CLEAR (CLEAR); BILIRUBIN,URINE NEGATIVE (NEGATIVE); BLOOD, URINE TRACE-I (NEGATIVE); COLOR,URINE YELLOW (YELLOW); LEUKOCYTE ESTERASE ,URINE NEGATIVE (NEGATIVE); NITRITE, URINE NEGATIVE (NEGATIVE); UGLUCOSE NEGATIVE (NEGATIVE)
[2017-08-17 19:49] LABS: RBC,URINE 0-5 (RARE) /HPF (0-5); WBC,URINE 0-5 (RARE) /HPF (0-5)
[2017-08-17] MEDS: methylPREDNISolone SS 40 MG/ML VIAL IVP SCH (20:20)
[2017-08-17] MEDS: CARVEDILOL 3.125 MG TAB PO SCH (20:21)
[2017-08-17] MEDS: INSULIN LISPRO SLIDING SCALE 100 UNITS/ML VIAL SUBQ PRN (20:34)
[2017-08-17] MEDS ORDERED: ATORVASTATIN 20 MG TAB PO SCH (21:00)
[2017-08-18] VITALS: BP 154/92
--- NOTE | 2017-08-18 | NUR ---
PT RESTING COMFORTABLY IN BED, NO S/S OF DISTRESS NOTED. ALL SAFETY PRECAUTIONS MET, CALL LIGHT WITHIN REACH, WILL CONTINUE TO MONITOR
[2017-08-18] MEDS ORDERED: ALBUTEROL SULFATE/IPRATROPIU 3 ML SOL IH PRN (01:45)
--- NOTE | 2017-08-18 02:25 | NUR ---
INCENTIVE SPIROMETER LEFT AT BEDSIDE, PATIENT SLEEPING
[2017-08-18 04:00] VITALS: BP 160/99
[2017-08-18] MEDS: NITROGLYCERIN 0.4 MG TAB SL PRN (05:40)
--- NOTE | 2017-08-18 05:40 | NUR ---
B/P 162/112 PULSE 102, NITRO GIVEN AT THIS TIME PER PARAMETERS
[2017-08-18] MEDS ORDERED: ALBUTEROL SULFATE/IPRATROPIU 3 ML SOL IH SCH (06:00)
[2017-08-18] MEDS: BLOOD GLUCOSE MONITORING 1 DEV DEV FS SCH ×4 (06:38→21:11)
[2017-08-18] MEDS: ALBUTEROL SULFATE/IPRATROPIU 3 ML SOL IH SCH ×3 (06:51→19:01)
--- NOTE | 2017-08-18 07:30 | NUR ---
RECEIVED PT IN BED. AWAKE. EATING BREAKFAST. ALERT ORIENTED X4. NO SOB NOTED. DENIES ANY PAIN OR DISCOMFORT AT THIS TIME. PT AMBULATORY. SAFETY PRECAUTION IN PLACE. CALL LIGHT WITHIN REACH.
--- NOTE | 2017-08-18 07:32 | NUR ---
GAVE REPORT TO DAY NURSE AT THE BEDSIDE FOR CONTINUITY OF CARE. PT REMAINS STABLE. NO S/S OF DISTRESS NOTED.
[2017-08-18 08:00] VITALS: BP 156/111
[2017-08-18] MEDS: LISINOPRIL 20 MG TAB PO SCH (08:13)
[2017-08-18] MEDS: DOCUSATE SODIUM 100 MG GELCAP PO SCH ×2 (08:13→21:11)
[2017-08-18] MEDS: ASPIRIN 81 MG TAB.CHEW PO SCH (08:13)
[2017-08-18] MEDS: methylPREDNISolone SS 40 MG/ML VIAL IVP SCH ×2 (08:13→21:11)
[2017-08-18] MEDS: FUROSEMIDE 40 MG TAB PO SCH (08:13)
[2017-08-18] MEDS: ATORVASTATIN 20 MG TAB PO SCH (08:14)
[2017-08-18] MEDS: CARVEDILOL 3.125 MG TAB PO SCH ×2 (08:14→21:11)
--- NOTE | 2017-08-18 09:36 | NUR ---
RECEIVED A CALL FROM YENY FROM LAB REGARDING TROPONIN ORDER, NO ORDER FOR TROPONIN #2 AT 08/17/17 AT 2300 AND 08/18/[address] ORTA MADE AWARE AND TO PUT IN ORDER.
--- NOTE | 2017-08-18 09:43 | NUR ---
CLARIFIED ORDER WITH DR. ORTA REGARDING TROPONIN ORDER. MD TO CANCEL ORDER FOR 08/18/17 AT 1500.
[2017-08-18 10:33] LABS: MEAN CORPUSCULAR HEMOGLOBIN 28 pg (27-31); MEAN CORPUSCULAR HGB CONC 33 g/dL (33-37); MEAN CORPUSCULAR VOLUME 87 fL (80-94); PLATELET COUNT (AUTO) 304 K/uL (140-450); RED BLOOD CELL COUNT(AUTO) 4.61 MIL/uL (4.20-5.40); RED CELL DISTRIBUTION WIDTH 13.9 % (11.6-13.7); WHITE BLOOD COUNT (AUTO) 17.8 K/uL (4.8-10.8)
[2017-08-18 10:50] LABS: ANION GAP 11.9 (8-16); CARBON DIOXIDE 28.7 mmol/L (21-32); POTASSIUM 4.6 mmol/L (3.5-5.1)
[2017-08-18 10:53] LABS: LYMPHOCYTES % (MANUAL) 6 % (20-46); MONOCYTES % (MANUAL) 2 % (5-12)
[2017-08-18 11:52] VITALS: BP 147/87
--- NOTE | 2017-08-18 15:07 | NUR ---
PT AWAKE. NO SOB NOTED. DENIES ANY PAIN OR DISCOMFORT AT THIS TIME.
[2017-08-18 16:00] VITALS: BP 152/98
--- NOTE | 2017-08-18 18:42 | NUR ---
PT KEPT CLEAN, DRY AND COMFORTABLE, NEEDS ATTENDED. WILL ENDORSE TO NEXT SHIFT, PT ON STABLE CONDITION, FOR CONTINUITY OF CARE. NO SOB NOTED, DENIES ANY PAIN OR DISCOMFORT AT THIS TIME.
--- NOTE | 2017-08-18 19:17 | NUR ---
RECEIVED REPORT FROM DAY SHIFT NURSE. AAOX4. NO C/O PAIN. NO SOB NOTED. IV TO RIGHT AC, SALINE LOCK. CALL LIGHT WITHIN REACH. WILL CONTINUE TO MONITOR.
[2017-08-18 20:00] VITALS: BP 138/68
--- NOTE | 2017-08-18 21:30 | NUR ---
PATIENT LYING IN BED COMFORTABLY. NO DISTRESS. ALL NEEDS MET AT THIS TIME. CALL LIGHT WITHIN REACH.
--- NOTE | 2017-08-18 23:45 | NUR ---
PT IN BED, WATCHING TV. NO C/O PAIN OR SOB. CALL LIGHT WITHIN REACH.
[2017-08-19] VITALS (10 sets, daily range): BP systolic 133–167; BP diastolic 78–123
--- NOTE | 2017-08-19 02:15 | NUR ---
PT SLEEPING. NO SIGNS OF DISTRESS. CALL LIGHT WITHIN REACH.
--- NOTE | 2017-08-19 03:44 | NUR ---
V/S TAKEN. BP 167/123. NO SIGNS OF DISTRESS. WILL GIVE BP MEDS ORDERED.
[2017-08-19] MEDS: NITROGLYCERIN 0.4 MG TAB SL PRN (03:46)
--- NOTE | 2017-08-19 03:46 | NUR ---
NITROGLYCERIN 0.4 MG TAB, SL GIVEN. WILL CONTINUE TO MONITOR V/S. CALL LIGHT WITHIN REACH.
--- NOTE | 2017-08-19 04:05 | NUR ---
BP 163/119. HR 96. PT DENIES CHEST PAIN.
--- NOTE | 2017-08-19 04:20 | NUR ---
BP 161/116. HR 90. CALLED DR. Nargis TRUJILLO. STATED THAT SHE WILL SEE THE PT.
[2017-08-19] MEDS ORDERED: hydrALAZINE 20 MG/ML VIAL IVP PRN ×2 (04:25→06:30)
--- NOTE | 2017-08-19 04:27 | NUR ---
DR. TRUJILLO ORDERED HYDRALAZINE 5 MG IVP Q6H PRN FOR SBP>170 OR DBP>100
--- NOTE | 2017-08-19 04:30 | NUR ---
CALLED OUTSIDE PHARMACY ) TO VERIFY ORDER OF HYDRALAZINE 5 MG IVP Q6H PRN.
--- NOTE | 2017-08-19 05:03 | NUR ---
BP 165/115. HR 92. O2 SAT 97% ON ROOM AIR. HYDRALAZINE 5 MG IVP GIVEN. WILL CONTINUE TO MONITOR V/S.
--- NOTE | 2017-08-19 05:30 | NUR ---
C/O PAIN ON THE IV SITE. D/C IV CANNULA. TIP INTACT.
--- NOTE | 2017-08-19 05:40 | NUR ---
INSERTED IV LINE TO LEFT WRIST #22G. GOOD FLUSH AND BLOOD RETURN. PROCEDURE TOLERATED WELL.
--- NOTE | 2017-08-19 06:00 | NUR ---
BP 158/98. HR 90. REPORTED V/S TO DR. TRUJILLO. NO NEW ORDER
[2017-08-19] MEDS: BLOOD GLUCOSE MONITORING 1 DEV DEV FS SCH ×4 (06:53→20:59)
[2017-08-19 06:55] LABS: BASOPHILS # (AUTO) 0.1 K/uL (0.00-0.22); BASOPHILS % (AUTO) 0.7 % (0.0-2.0); EOSINOPHILS # (AUTO) 0.1 K/uL (0-0.4); EOSINOPHILS % (AUTO) 1.1 % (0.0-4.0); HEMATOCRIT 40.9 % (36-48); HEMOGLOBIN 13.5 g/dL (12.0-16.0); LYMPHOCYTES # (AUTO) 0.8 K/uL (2.5-16.5); MEAN CORPUSCULAR HEMOGLOBIN 29 pg (27-31); MEAN CORPUSCULAR HGB CONC 33 g/dL (33-37); MEAN CORPUSCULAR VOLUME 87 fL (80-94); MONOCYTES # (AUTO) 0.3 K/uL (0.8-1.0); MONOCYTES % (AUTO) 2.3 % (1.7-9.3); NEUTROPHILS # (AUTO) 12.2 K/uL (1.8-7.7); NEUTROPHILS % (AUTO) 89.9 % (42.2-75.2); PLATELET COUNT (AUTO) 315 K/uL (140-450); RED BLOOD CELL COUNT(AUTO) 4.71 MIL/uL (4.20-5.40); RED CELL DISTRIBUTION WIDTH 14.1 % (11.6-13.7)
--- NOTE | 2017-08-19 07:18 | NUR ---
ENDORSED TO DAY SHIFT NURSE. PT IN STABLE CONDITION.
[2017-08-19] MEDS: ALBUTEROL SULFATE/IPRATROPIU 3 ML SOL IH SCH (07:25)
--- NOTE | 2017-08-19 07:28 | NUR ---
RECEIVED PT IN BED. AWAKE. ALERT ORIENTEDX4. NO SOB NOTED. DENIES ANY PAIN OR DISCOMFORT AT THIS TIME. PT AMBULATORY. SAFETY PRECAUTION IN PLACE. CALL LIGHT WITHIN REACH.
--- NOTE | 2017-08-19 08:00 | NUR ---
VITAL SIGNS TAKEN AND RECORDED. BLOOD PRESSURE NOTED TO BE ELEVATED. WILL MEDICATE WITH BP MEDS SCHEDULED.
[2017-08-19 08:07] LABS: WHITE BLOOD COUNT (AUTO) 13.5 K/uL (4.8-10.8)
[2017-08-19 08:13] LABS: ANION GAP 12.6 (8-16); CARBON DIOXIDE 28.5 mmol/L (21-32); CREATININE 0.9 mg/dL (0.6-1.3); POTASSIUM 4.1 mmol/L (3.5-5.1)
[2017-08-19] MEDS: LISINOPRIL 20 MG TAB PO SCH ×2 (08:40→20:55)
[2017-08-19] MEDS: methylPREDNISolone SS 40 MG/ML VIAL IVP SCH ×2 (08:40→20:55)
[2017-08-19] MEDS: ATORVASTATIN 20 MG TAB PO SCH (08:40)
[2017-08-19] MEDS: DOCUSATE SODIUM 100 MG GELCAP PO SCH ×2 (08:40→20:54)
[2017-08-19] MEDS: ASPIRIN 81 MG TAB.CHEW PO SCH (08:40)
[2017-08-19] MEDS: FUROSEMIDE 40 MG TAB PO SCH (08:40)
[2017-08-19] MEDS: CARVEDILOL 3.125 MG TAB PO SCH ×2 (08:41→20:55)
--- NOTE | 2017-08-19 09:30 | NUR ---
RECHECKED BLOOD PRESSURE, RECORDED. BLOOD PRESSURE WENT DOWN. PT ASYMPTOMATIC. AWAKE, ABLE TO MAKE NEEDS KNOWN. WILL MONITOR VITAL SIGNS.
[2017-08-19] MEDS: INSULIN LISPRO SLIDING SCALE 100 UNITS/ML VIAL SUBQ PRN ×2 (11:28→21:08)
[2017-08-19] MEDS: ALBUTEROL SULFATE/IPRATROPIU 3 ML SOL IH PRN (13:36)
--- NOTE | 2017-08-19 18:33 | NUR ---
PT KEPT CLEAN, DRY, AND COMFORTABLE, NEEDS ATTENDED. NO SOB NOTED. DENIES ANY PAIN OR DISCOMFORT AT THIS TIME. WILL ENDORSE TO NEXT SHIFT, PT ON STABLE CONDITION, FOR CONTINUITY OF CARE.
--- NOTE | 2017-08-19 19:25 | NUR ---
DR. TRUJILLO MADE AWARE OF RECENT EKG READING PER MATHEMATICS DEPARTMENT CHAIR WHICH IS INVERTED T WAVE.
--- NOTE | 2017-08-19 19:30 | NUR ---
RECEIVED REPORT FROM DAY RN. PATIENT RESTING IN BED, NO S/S OF ACUTE DISTRESS NOTED, RESPIRATION EVEN AND UNLABORED, IV PATENT AND INTACT. PLAN OF CARE DISCUSSED, PATIENT VERBALIZED UNDERSTANDING. CALL LIGHT WITHIN REACH, SAFETY MEASURE ENSURED, WILL CONTINUE TO MONITOR.
--- NOTE | 2017-08-19 20:20 | NUR ---
EDUCATED PATIENT ON LOW SODIUM DIET DUE TO HEART CONDITION. PATIENT VERBALIZED UNDERSTANDING. SAFETY MEASURE ENSURED, WILL CONTINUE TO MONITOR.
--- NOTE | 2017-08-19 21:08 | NUR ---
DUE MEDICATION GIVEN, PATIENT TOLERATED WELL. NO S/S OF ACUTE DISTRESS NOTED, RESPIRATION EVEN AND UNLABORED, CALL LIGHT WITHIN REACH, SAFETY MEASURE ENSURED, WILL CONTINUE TO MONITOR.
--- NOTE | 2017-08-19 23:25 | NUR ---
PATIENT IS WATCHING TV. NO S/S OF ACUTE DISTRESS NOTED, RESPIRATION EVEN AND UNLABORED, CALL LIGHT WITHIN REACH, SAFETY MEASURE ENSURED, WILL CONTINUE TO MONITOR.
[2017-08-20] VITALS: BP 147/76
--- NOTE | 2017-08-20 01:52 | NUR ---
OFFERED PATIENT HOT TEA SHE REQUESTED. NO CHANGE IN CONDITION, RESPIRATION EVEN AND UNLABORED, CALL LIGHT WITHIN REACH, SAFETY MEASURE ENSURED, WILL CONTINUE TO MONITOR.
[2017-08-20] MEDS: NITROGLYCERIN 0.4 MG TAB SL PRN ×2 (03:46→09:31)
--- NOTE | 2017-08-20 03:48 | NUR ---
BP 162/111, HR 97, PRN NITROSTAT 0.4MG GIVEN. PATIENT TOLERATED WELL. WILL CONTINUE TO MONITOR.
[2017-08-20 03:50] VITALS: BP 162/111
--- NOTE | 2017-08-20 04:18 | NUR ---
BP 159/98, HR 96. PATIENT DENIES ANY DISCOMFORT OR PAIN. CALL LIGHT WITHIN REACH, SAFETY MEASURE ENSURED, WILL CONTINUE TO MONITOR.
--- NOTE | 2017-08-20 05:05 | NUR ---
MADE DR. TRUJILLO AWARE OF PATIENT'S BP 159/98, NO NEW ORDER RECEIVED AT THIS TIME. WILL CONTINUE TO MONITOR.
[2017-08-20 06:15] LABS: BASOPHILS # (AUTO) 0.1 K/uL (0.00-0.22); BASOPHILS % (AUTO) 0.8 % (0.0-2.0); EOSINOPHILS # (AUTO) 0.1 K/uL (0-0.4); EOSINOPHILS % (AUTO) 0.7 % (0.0-4.0); HEMOGLOBIN 13.9 g/dL (12.0-16.0); LYMPHOCYTES # (AUTO) 0.7 K/uL (2.5-16.5); LYMPHOCYTES % (AUTO) 6.1 % (20.5-51.1); MEAN CORPUSCULAR HEMOGLOBIN 28 pg (27-31); MEAN CORPUSCULAR HGB CONC 32 g/dL (33-37); MEAN CORPUSCULAR VOLUME 87 fL (80-94); MONOCYTES # (AUTO) 0.5 K/uL (0.8-1.0); MONOCYTES % (AUTO) 3.8 % (1.7-9.3); NEUTROPHILS # (AUTO) 10.8 K/uL (1.8-7.7); NEUTROPHILS % (AUTO) 88.6 % (42.2-75.2); PLATELET COUNT (AUTO) 360 K/uL (140-450); RED BLOOD CELL COUNT(AUTO) 4.97 MIL/uL (4.20-5.40); RED CELL DISTRIBUTION WIDTH 14.3 % (11.6-13.7)
[2017-08-20] MEDS: BLOOD GLUCOSE MONITORING 1 DEV DEV FS SCH (06:33)
[2017-08-20 06:38] LABS: ANION GAP 9.1 (8-16); CARBON DIOXIDE 31.5 mmol/L (21-32); CREATININE 0.9 mg/dL (0.6-1.3); POTASSIUM 4.6 mmol/L (3.5-5.1)
[2017-08-20 07:00] LABS: WHITE BLOOD COUNT (AUTO) 12.2 K/uL (4.8-10.8)
--- NOTE | 2017-08-20 07:20 | NUR ---
ENDORSED PLAN OF CARE TO DAY SANTOS PEDERSEN, PATIENT IS IN STABLE CONDITION. NO S/S OF DISTRESS NOTED.
--- NOTE | 2017-08-20 07:21 | NUR ---
RECEIVED REPORT FROM WOODWORKER NURSE JERICHO AT BEDSIDE FOR CONTINUITY OF CARE. PT IS AWAKE AND ORIENTED. INTRODUCED SELF AND UPDATED BOARD. PT IN STABLE CONDITION.
[2017-08-20 08:00] VITALS: BP 163/110
[2017-08-20] MEDS: ALBUTEROL SULFATE/IPRATROPIU 3 ML SOL IH PRN (09:00)
[2017-08-20] MEDS: methylPREDNISolone SS 40 MG/ML VIAL IVP SCH (09:30)
[2017-08-20] MEDS: ASPIRIN 81 MG TAB.CHEW PO SCH (09:30)
[2017-08-20] MEDS: DOCUSATE SODIUM 100 MG GELCAP PO SCH (09:30)
[2017-08-20] MEDS: ATORVASTATIN 20 MG TAB PO SCH (09:30)
[2017-08-20] MEDS: LISINOPRIL 20 MG TAB PO SCH (09:31)
[2017-08-20] MEDS: FUROSEMIDE 40 MG TAB PO SCH (09:31)
[2017-08-20] MEDS: CARVEDILOL 3.125 MG TAB PO SCH (09:31)
--- NOTE | 2017-08-20 09:31 | NUR ---
PT'S BP WAS 163/110. ADMINISTERED NITROSTAT SL FOR BP. PT TOLERATED MEDS WELL. PT IS SITTING UP IN BED. DENIES PAIN. NO RESPIRATORY DISTRESS NOTED. BED IN LOW POSITION, WHEELS LOCKED. INSTRUCTED PT TO USE CALL LIGHT WHEN NEED OF ASSISTANCE AND PLACE CALL LIGHT WITHIN REACH. PT VERBALIZED UNDERSTANDING. WILL CONTINUE TO MONITOR.
[2017-08-20] MEDS ORDERED: CARV3.122 PO (09:57)
--- NOTE | 2017-08-20 13:00 | NUR ---
GAVE D/C INSTRUCTIONS AND FORMS TO PT. PT'S DAUGHTER IS AT BEDSIDE AND TRANSLATED INSTRUCTIONS, F/U APPOINTMENT, LABS AND RX FOR PT. ASKED IF PT HAD ANY OTHER QUESTIONS, PT STATED NO. PT SIGNED FORMS. IV CATHETER REMOVED FROM LEFT HAND 22G. IV CATHETER TIP INTACT. APPLIED DRESSING AND PRESSURE TO SITE. NO BLEEDING NOTED. REMOVED TELE MONITOR AND ID BANDS. PT STATED SHE DID NOT HAVE A T-SHIRT. CALLED SECURITY AND DELIVERED T-SHIRT FOR PT TO GO HOME IN. PT CHANGED IN OWN CLOTHES AND LEFT WITH ALL PERSONAL BELONGINGS. LEFT UNIT VIA AMBULATION ACCOMPANIED BY RN AND DAUGHTER. LEFT IN STABLE CONDITION TO GO HOME.
== END 2017-08-20 13:00 | disposition home or self-care (01) | DRG 190 ==
LOC: MED 05:07 → MTU 07:45
PROVIDERS: ADMIT Family Medicine; ATTEND Family Medicine
DX: I21.A1 Myocardial infarction type 2 (principal); J96.01 Acute respiratory failure with hypoxia; G93.41 Metabolic encephalopathy; I50.43 Acute on chronic combined systolic (congestive) and diastolic (congestive) heart failure; J45.901 Unspecified asthma with (acute) exacerbation; I27.20 Pulmonary hypertension, unspecified; I42.0 Dilated cardiomyopathy; I24.9 Acute ischemic heart disease, unspecified; I11.0 Hypertensive heart disease with heart failure; E11.9 Type 2 diabetes mellitus without complications; D72.829 Elevated white blood cell count, unspecified; R00.0 Tachycardia, unspecified; F15.10 Other stimulant abuse, uncomplicated; I16.0 Hypertensive urgency; R31.9 Hematuria, unspecified; T38.0X5A Adverse effect of glucocorticoids and synthetic analogues, initial encounter; Y92.89 Other specified places as the place of occurrence of the external cause; Z91.14 Patient's other noncompliance with medication regimen; Z79.82 Long term (current) use of aspirin; Z79.899 Other long term (current) drug therapy
CPT/HCPCS: 36415; 71010; 76770; 80048; 80305; 81001; 82150; 82948; 83036; 83690; 83735; 83880; 84100; 84439; 84443; 84484; 85025; 85610; 85730; 87081; 87086; 93005; 93308; 94640; 96360; 96372; 99291; J0360; J1815; J2920; J2930; J7030; J7613; J7620; Q0092

== ENCOUNTER 2018-01-14 18:39 | Inpatient (IN) | payer MEDICAID ==
[~2018-01-14] VITALS: Ht 160 cm; Wt 56.3 kg
[~2018-01-14 18:39] MED LIST changes: -BACTO TP; +BENZ100C6 PO; +CARV3.122 PO; -CHLO120L4 TP; +CLIN300C2 PO; +LACT10CA PO; +LEVO750T2 PO; -METH4TAB3 PO; -METO25TA PO; +PUL.5N INH; -ROBAC PO
[2018-01-14 19:13] VITALS: BP 175/125
[2018-01-14] MEDS ORDERED: ALBUTEROL SULFATE/IPRATROPIU 3 ML SOL IH ONE ×2 (19:20→19:50)
--- NOTE | 2018-01-14 19:20 | NUR ---
PT TAKEN TO BED 1
--- NOTE | 2018-01-14 19:23 | NUR ---
52 Y/O F W/C/O SOB x 2 wks GETTING worse last 3 days, LABORED BREATHING NOTED, WHEEZES BILATERAL, AND RONCHI. PRODUCTIVE COUGH NOTED, DIAPHORECTIC, DENIES CHEST PAIN, SINUS TACHY ON MONITOR. MED HX HTN. PT PLACED ON MONITOR. ER MD ,MADE AWARE. hx--asthma, cardiomegaly, htn, dm rx---albuterol, lisinopril
[2018-01-14] MEDS ORDERED: methylPREDNISolone SS 125 MG in WATER STERILE 2 ML IV ONE (19:30)
[2018-01-14] MEDS ORDERED: methylPREDNISolone SS 125 MG/2 ML VIAL ONE (19:41)
[2018-01-14] MEDS ORDERED: AZITHROMYCIN 500 MG in DEXTROSE 5% 250 ML IV ONE (19:50)
--- NOTE | 2018-01-14 19:54 | NUR ---
RT AT BEDSIDE
[2018-01-14] MEDS ORDERED: cefTRIAXone 1,000 MG VIAL ONE (20:00)
[2018-01-14] MEDS ORDERED: AZITHROMYCIN 500 MG INJ VIAL IV ONE (20:01)
[2018-01-14 20:18] LABS: BASOPHILS # (AUTO) 0.2 K/uL (0.00-0.22); BASOPHILS % (AUTO) 1.6 % (0.0-2.0); EOSINOPHILS # (AUTO) 0.4 K/uL (0-0.4); EOSINOPHILS % (AUTO) 3.2 % (0.0-4.0); HEMATOCRIT 35.8 % (36-48); HEMOGLOBIN 11.4 g/dL (12.0-16.0); LYMPHOCYTES # (AUTO) 2.1 K/uL (2.5-16.5); LYMPHOCYTES % (AUTO) 16.6 % (20.5-51.1); MEAN CORPUSCULAR HEMOGLOBIN 27 pg (27-31); MEAN CORPUSCULAR HGB CONC 32 g/dL (33-37); MEAN CORPUSCULAR VOLUME 84.7 fL (80-94); MONOCYTES # (AUTO) 0.5 K/uL (0.8-1.0); MONOCYTES % (AUTO) 3.7 % (1.7-9.3); NEUTROPHILS # (AUTO) 9.2 K/uL (1.8-7.7); NEUTROPHILS % (AUTO) 74.9 % (42.2-75.2); PLATELET COUNT (AUTO) 393 K/uL (140-450); RED BLOOD CELL COUNT(AUTO) 4.23 MIL/uL (4.20-5.40); RED CELL DISTRIBUTION WIDTH 14.5 % (11.6-13.7); WHITE BLOOD COUNT (AUTO) 12.4 K/uL (4.8-10.8)
[2018-01-14 20:29] LABS: ANION GAP 11.7 (8-16); CARBON DIOXIDE 30.2 mmol/L (21-32); CREATININE 0.9 mg/dL (0.6-1.3); POTASSIUM 4.9 mmol/L (3.5-5.1)
[2018-01-14 20:35] LABS: ALBUMIN 3.2 g/dL (3.4-5.0); TOTAL BILIRUBIN 0.7 mg/dL (0.0-1.0)
[2018-01-14 20:41] LABS: PROTHROMBIN TIME 12.1 secs (10.8-13.4)
--- NOTE | 2018-01-14 20:50 | NUR ---
PT RESTING IN BED, LABORED CREATHING NOTED. DIAPHORETIC, SINUS TACHY, DENIES ANY CHEST PAIN. ER MD INFORMED.
[2018-01-14] MEDS ORDERED: FUROSEMIDE 40 MG/4 ML VIAL IVP ONE ×2 (21:00→22:00)
[2018-01-14] MEDS ORDERED: ASPIRIN 325 MG TAB PO ONE (21:00)
[2018-01-14] MEDS ORDERED: NITROGLYCERIN 2% 1 GM PKT TP ONE (21:10)
[2018-01-14] MEDS ORDERED: KETOROLAC 30 MG/ML VIAL IVP ONE (21:40)
[2018-01-14 21:52] LABS: APPEARANCE,URINE CLEAR (CLEAR); BILIRUBIN,URINE NEGATIVE (NEGATIVE); BLOOD, URINE TRACE-L (NEGATIVE); COLOR,URINE YELLOW (YELLOW); LEUKOCYTE ESTERASE ,URINE NEGATIVE (NEGATIVE); NITRITE, URINE NEGATIVE (NEGATIVE); PH,URINE 5.5 (5.0-9.0); UGLUCOSE NEGATIVE (NEGATIVE)
[2018-01-14 22:13] LABS: RBC,URINE 0-5 (RARE) /HPF (0-5); WBC,URINE 0-5 (RARE) /HPF (0-5)
--- NOTE | 2018-01-14 22:18 | NUR ---
pt taken for ct scan
[2018-01-14] MEDS ORDERED: MORPHINE SULFATE 4 MG/ML SYR IVP ONE (22:35)
[2018-01-14] MEDS ORDERED: hydrALAZINE 20 MG/ML VIAL IVP ONE (23:20)
[2018-01-14] MEDS ORDERED: ENOXAPARIN 60 MG/0.6 ML SYR SUBQ ONE (23:50)
--- NOTE | 2018-01-15 00:02 | NUR ---
PT RESTING IN BED, STATES HAS NO MORE PAIN AT THE MOMENT. CONTINUES SINUS TACHY, IN O2, 99% SPO2. DENIES ANY CHEST PAIN. URINE OUTPUT 1400 ML AT THE MOMENT. NO OTHER S/S OF DISTRESS NOTED AT THE MOMENT. ER MD LEDBETTER AWARE.
[2018-01-15] MEDS ORDERED: ONDANSETRON 4 MG/2 ML VIAL IVP PRN (00:35)
[2018-01-15] MEDS ORDERED: HYDROcodone/APAP 7.5/325 MG 1 TAB PO PRN (00:35)
[2018-01-15] MEDS ORDERED: ALBUTEROL SULFATE/IPRATROPIU 3 ML SOL IH PRN (00:45)
--- NOTE | 2018-01-15 00:54 | NUR ---
PT ASLEEP, SLIGHLTY TACHY, URINE OUTPUT 1800 IN NIETO BAG.
[2018-01-15] MEDS ORDERED: BENZONATATE 100 MG CAPLF PO PRN (01:00)
[2018-01-15] MEDS ORDERED: DEXTROSE 50% 50 ML SYR IVP PRN (01:00)
--- NOTE | 2018-01-15 01:00 | NUR ---
Patient will be admitted to care of DR SOTO. Admited to TELEMETRY. Will go to room 119A. Belongings list completed. Report to SANTOS RODRIGUEZ.
--- NOTE | 2018-01-15 01:00 | NUR ---
PT ARRIVED AT UNIT VIA GURNEY, REPORT RECEIVED FROM ED NURSE NITISH RN, PT STABLE, NO DISTRESS NOTED, IV TO R AC 20G SL, PATENT, INTACT, PT ON 3LPM O2 VIA NC, NO SOB, SKIN INTACT ORIENT PT TO UNIT AND CALL LIGHT, PT STATED UNDERSTANDING, MRSA SWAB TAKEN, INITIAL ASSESSMENT DONE, ALL SAFETY PRECAUTION MET, WILL CONTINUE TO MONITOR.
[2018-01-15 01:25] VITALS: BP 132/80
[2018-01-15 01:45] LABS: CHOL/HDL RATIO 3.2 (1-4.5); FREE T4 (FREE THYROXINE) 1.08 ng/dL (0.76-1.46); MAGNESIUM 1.9 mg/dL (1.8-2.4); PHOSPHORUS 4.6 mg/dL (2.5-4.9); THYROID STIMULATING HORMONE 3.93 uIU/mL (0.34-3.74)
--- NOTE | 2018-01-15 02:35 | NUR ---
PT C/O FEELING HUNGRY AND WANTS COFFEE, SANDWICH AND DECAF COFFEE GIVEN, PT ATE WELL, AFTER EATING PT WENT BACK TO SLEEP, NO DISTRESS NOTED, CALL LIGHT WITHIN REACH, WILL CONTINUE TO MONITOR.
[2018-01-15 04:00] VITALS: BP 134/84
[2018-01-15] MEDS: methylPREDNISolone SS 125 MG/2 ML VIAL IVP SCH ×3 (04:22→21:27)
--- NOTE | 2018-01-15 04:22 | NUR ---
DUE MEDICATION GIVEN, PT TOLERATED WELL, NO DISTRESS NOTED, CALL LIGHT WITHIN REACH, WILL CONTINUE TO MONITOR.
[2018-01-15] MEDS ORDERED: ALBUTEROL SULFATE/IPRATROPIU 3 ML SOL IH SCH (06:00)
--- NOTE | 2018-01-15 06:10 | NUR ---
PT SLEEPING, NO DISTRESS NOTED, CALL LIGHT WITHIN REACH, WILL CONTINUE TO MONITOR.
[2018-01-15] MEDS: INSULIN LISPRO SLIDING SCALE 100 UNITS/ML VIAL SUBQ PRN ×2 (06:24→17:00)
[2018-01-15] MEDS: BLOOD GLUCOSE MONITORING 1 DEV DEV FS SCH ×4 (06:24→21:27)
--- NOTE | 2018-01-15 07:09 | NUR ---
FOUND PT ON 2L NC. TX WAS TOLERATED AND GIVEN VIA MASK. PT IS NOT IN ANY RESPIRATORY DISTRESS OR SOB. SP02 98% HR 102 RR 16. PLACED PT BACK ON 2L NC.
--- NOTE | 2018-01-15 07:20 | NUR ---
ENDORSED PLAN OF CARE TO DAY SHIFT NURSE RALPH RN, PT STABLE, NO DISTRESS NOTED, CALL LIGHT WITHIN REACH.
--- NOTE | 2018-01-15 07:21 | NUR ---
RECEIVED REPORT FROM FREIGHT CAR INSPECTOR RN. PATIENT IS ASLEEP, BUT AROUSABLE TO SHAKING AND NAME. NO SIGNS AND SYMPTOMS OF ACUTE DISTRESS NOTED AT THIS TIME. HAS NC AT 3 LPM. PATIENT HAS A NIETO CATHETER DRAINING TO GRAVITY. HAS IV TO THE RIGHT AC 20G ON SALINE LOCK AT THIS TIME. SITE IS CLEAN, DRY, PATENT AND INTACT. BED IS IN LOWEST POSITION, SIDE RAILS UP X2, CALL LIGHT WITHIN REACH. WILL CONTINUE TO MONITOR.
[2018-01-15 08:00] VITALS: BP 140/87
[2018-01-15 08:19] LABS: MAGNESIUM 1.8 mg/dL (1.8-2.4); PHOSPHORUS 4.6 mg/dL (2.5-4.9)
[2018-01-15 08:23] LABS: ANION GAP 13.8 (8-16); CARBON DIOXIDE 29.2 mmol/L (21-32)
[2018-01-15 08:25] LABS: BASOPHILS % (AUTO) 0.2 % (0.0-2.0); HEMATOCRIT 36.9 % (36-48); HEMOGLOBIN 11.9 g/dL (12.0-16.0); LYMPHOCYTES # (AUTO) 0.4 K/uL (2.5-16.5); LYMPHOCYTES % (AUTO) 6.2 % (20.5-51.1); MEAN CORPUSCULAR HEMOGLOBIN 27 pg (27-31); MEAN CORPUSCULAR HGB CONC 32 g/dL (33-37); MEAN CORPUSCULAR VOLUME 84.3 fL (80-94); MONOCYTES # (AUTO) 0.1 K/uL (0.8-1.0); MONOCYTES % (AUTO) 1.2 % (1.7-9.3); NEUTROPHILS % (AUTO) 92.4 % (42.2-75.2); PLATELET COUNT (AUTO) 408 K/uL (140-450); RED BLOOD CELL COUNT(AUTO) 4.37 MIL/uL (4.20-5.40); RED CELL DISTRIBUTION WIDTH 15.3 % (11.6-13.7); WHITE BLOOD COUNT (AUTO) 6.5 K/uL (4.8-10.8)
[2018-01-15] MEDS: LACTOBACILLUS RHAMNOSUS GG 1 EACH CAP PO SCH ×2 (09:00→09:28)
[2018-01-15] MEDS ORDERED: FUROSEMIDE 40 MG TAB PO SCH ×2 (09:00→11:58)
--- NOTE | 2018-01-15 09:21 | NUR ---
PATIENT HAS BEEN SCREENED AND CATEGORIZED HIGH NUTRITION RISK. PATIENT WILL BE SEEN WITHIN 1-2 DAYS OF ADMISSION. 01/15/18 - 01/16/[address]
[2018-01-15] MEDS: DOCUSATE SODIUM 100 MG GELCAP PO SCH ×2 (09:27→21:27)
[2018-01-15] MEDS: ATORVASTATIN 20 MG TAB PO SCH (09:28)
[2018-01-15] MEDS: ASPIRIN 81 MG TAB.CHEW PO SCH (09:28)
[2018-01-15] MEDS: LISINOPRIL 20 MG TAB PO SCH (09:28)
[2018-01-15] MEDS: CARVEDILOL 3.125 MG TAB PO SCH ×2 (09:29→21:28)
[2018-01-15 12:00] VITALS: BP 117/75
[2018-01-15] MEDS: ALBUTEROL SULFATE/IPRATROPIU 3 ML SOL IH SCH ×2 (13:29→19:03)
[2018-01-15 16:00] VITALS: BP 129/69
[2018-01-15] MEDS: FUROSEMIDE 40 MG/4 ML VIAL IVP SCH (17:45)
--- NOTE | 2018-01-15 19:19 | NUR ---
ENDORSED PATIENT TO CONTROLLER MECHANIC RN FOR CONTINUITY OF CARE. PATIENT IN STABLE CONDITION.
--- NOTE | 2018-01-15 19:20 | NUR ---
RECEIVED BEDSIDE REPORT FROM DAY SHIFT NURSE RALPH RN, PT STABLE, NO DISTRESS NOTED, CALL LIGHT WITHIN REACH, IV TO RAC 20G RUNNING ROCEPHINE @ 100 ML/HR, PT ON 2LPM O2 VIA NC NO SOB, NIETO IN PLACE DRAINING YELLOW URINE, INITIAL ASSESSMENT DONE, ALL SAFETY PRECAUTION MET, WILL CONTINUE TO MONITOR.
[2018-01-15 20:00] VITALS: BP 114/67
--- NOTE | 2018-01-15 20:00 | NUR ---
URINE SAMPLE COLLECTED, SENT TO LAB.
--- NOTE | 2018-01-15 21:28 | NUR ---
DUE MEDICATION GIVEN, PT TOLERATED WELL, NO DISTRESS NOTED, CALL LIGHT WITHIN REACH, WILL CONTINUE TO MONITOR.
[2018-01-15 21:52] LABS: BARBITURATE, URINE NEG. ng/ml (NEG <=200); BENZODIAZEPINE, URINE NEG. ng/mL (NEG <=200); CANNABINOID, URINE NEG. ng/mL (NEG <=50); COCAINE, URINE NEG. ng/mL (NEG <=300); OPIATE, URINE NEG. ng/mL (NEG <=2000); PHENCYCLIDINE SCREEN,URINE NEG. ng/mL (NEG <=25)
[2018-01-16] VITALS: BP 149/90
--- NOTE | 2018-01-16 00:10 | NUR ---
CHECKED ON PT, PT TOOK OFF NC, PT ON ROOM AIR, NO SOB, CHECKED PT O2 SAT 95%, PT STATED DOES NOT WANT TO WEAR THE NC AT THIS MOMENT, PT WENT BACK TO SLEEP, NO DISTRESS NOTED, CALL LIGHT WITHIN REACH, WILL CONTINUE TO MONITOR.
[2018-01-16 04:00] VITALS: BP 114/71
--- NOTE | 2018-01-16 04:10 | NUR ---
CHECKED ON PT, PT SLEEPING, NO DISTRESS NOTED, CALL LIGHT WITHIN REACH, WILL CONTINUE TO MONITOR.
[2018-01-16] MEDS: methylPREDNISolone SS 40 MG/ML VIAL IVP SCH ×3 (04:46→20:53)
[2018-01-16] MEDS: ACETAMINOPHEN 325 MG TAB PO PRN ×2 (04:47→17:29)
--- NOTE | 2018-01-16 04:47 | NUR ---
PT C/O HEADACHE, TYLENOL GIVEN, PT TOLERATED WELL, NO DISTRESS NOTED, CALL LIGHT WITHIN REACH, WILL CONTINUE TO MONITOR.
[2018-01-16] MEDS: BLOOD GLUCOSE MONITORING 1 DEV DEV FS SCH ×4 (06:20→21:08)
[2018-01-16 06:41] LABS: HEMATOCRIT 34.4 % (36-48); HEMOGLOBIN 11.2 g/dL (12.0-16.0); MEAN CORPUSCULAR HEMOGLOBIN 28 pg (27-31); MEAN CORPUSCULAR HGB CONC 33 g/dL (33-37); MEAN CORPUSCULAR VOLUME 84.4 fL (80-94); PLATELET COUNT (AUTO) 449 K/uL (140-450); RED BLOOD CELL COUNT(AUTO) 4.07 MIL/uL (4.20-5.40); RED CELL DISTRIBUTION WIDTH 14.3 % (11.6-13.7); WHITE BLOOD COUNT (AUTO) 22.4 K/uL (4.8-10.8)
[2018-01-16] MEDS: ALBUTEROL SULFATE/IPRATROPIU 3 ML SOL IH SCH ×3 (06:55→19:00)
[2018-01-16 07:23] LABS: ANION GAP 11.8 (8-16); CARBON DIOXIDE 30.7 mmol/L (21-32); CREATININE 1.1 mg/dL (0.6-1.3); POTASSIUM 4.5 mmol/L (3.5-5.1)
--- NOTE | 2018-01-16 07:24 | NUR ---
ENDORSED PLAN OF CARE TO DAY SHIFT NURSE RALPH RN, PT STABLE, NO DISTRESS NOTED, CALL LIGHT WITHIN REACH.
--- NOTE | 2018-01-16 07:25 | NUR ---
RECEIVED REPORT FROM KEY ACCOUNT EXECUTIVE RN. PATIENT IS AAOX4. NO SIGNS AND SYMPTOMS OF ACUTE DISTRESS NOTED AT THIS TIME. PATIENT IS ON ROOM AIR. PATIENT HAS A NIETO CATHETER DRAINING TO GRAVITY. HAS IV TO THE RIGHT AC 20G ON SALINE LOCK AT THIS TIME. SITE IS CLEAN, DRY, PATENT AND INTACT. BED IS IN LOWEST POSITION, SIDE RAILS UP X2, CALL LIGHT WITHIN REACH. WILL CONTINUE TO MONITOR.
[2018-01-16 07:27] LABS: LYMPHOCYTES % (MANUAL) 2 % (20-46); MONOCYTES % (MANUAL) 1 % (5-12)
[2018-01-16 08:00] VITALS: BP 134/83
[2018-01-16] MEDS: LACTOBACILLUS RHAMNOSUS GG 1 EACH CAP PO SCH ×2 (09:00→09:27)
[2018-01-16] MEDS: CARVEDILOL 3.125 MG TAB PO SCH ×2 (09:26→20:53)
[2018-01-16] MEDS: LISINOPRIL 20 MG TAB PO SCH (09:26)
[2018-01-16] MEDS: DOCUSATE SODIUM 100 MG GELCAP PO SCH ×2 (09:26→20:53)
[2018-01-16] MEDS: ASPIRIN 81 MG TAB.CHEW PO SCH (09:27)
[2018-01-16] MEDS: ATORVASTATIN 20 MG TAB PO SCH (09:27)
[2018-01-16] MEDS: FUROSEMIDE 40 MG/4 ML VIAL IVP SCH ×2 (09:27→17:32)
--- NOTE | 2018-01-16 11:08 | NUR ---
ADMISSION REVIEW DONE
[2018-01-16] MEDS: INSULIN LISPRO SLIDING SCALE 100 UNITS/ML VIAL SUBQ PRN ×2 (13:33→21:15)
[2018-01-16 15:29] LABS: HEMATOCRIT 36.9 % (36-48); MEAN CORPUSCULAR HEMOGLOBIN 27 pg (27-31); MEAN CORPUSCULAR HGB CONC 33 g/dL (33-37); MEAN CORPUSCULAR VOLUME 82.8 fL (80-94); PLATELET COUNT (AUTO) 525 K/uL (140-450); RED BLOOD CELL COUNT(AUTO) 4.45 MIL/uL (4.20-5.40); RED CELL DISTRIBUTION WIDTH 14.3 % (11.6-13.7); WHITE BLOOD COUNT (AUTO) 23.7 K/uL (4.8-10.8)
[2018-01-16 16:00] VITALS: BP 143/96
[2018-01-16 16:03] LABS: LYMPHOCYTES % (MANUAL) 9 % (20-46); MONOCYTES % (MANUAL) 4 % (5-12)
--- NOTE | 2018-01-16 19:15 | NUR ---
ENDORSED PATIENT TO GOVERNMENT TEACHER RN FOR CONTINUITY OF CARE. PATIENT IN STABLE CONDITION.
--- NOTE | 2018-01-16 19:16 | NUR ---
RECEIVED PT FROM DAY SHIFT NURSE MAYKEL. AOX4 ON ROOM AIR. IV RIGHT WRIST #22G, SALINE LOCK, PATENT AND FLUSHING WELL. PT RESTING IN BED. FAMILY AT BEDSIDE. PT WATCHING TV. NO S/S OF RESPIRATORY DISTRESS OR DISCOMFORT NOTED AT THIS TIME. BED IN LOWEST POSITION. CALL LIGHT WITHIN REACH. WILL CONTINUE TO MONITOR.
--- NOTE | 2018-01-16 19:32 | NUR ---
FAMILY AT BED SIDE, PT LOOKING GOOD, SAT 98% IN ROOM AIR, SHE REFUSED HHNTX , NO SOB NOTED.
--- NOTE | 2018-01-16 20:55 | NUR ---
SCHEDULED MEDICATIONS GIVEN. PT TOLERATED WELL. NO S/S OF RESPIRATORY DISTRESS OR DISCOMFORT NOTED AT THIS TIME. PT RESTING IN BED WATCHING TV. BED IN LOWEST POSITION. CALL LIGHT WITHIN REACH. WILL CONTINUE TO MONITOR.
--- NOTE | 2018-01-16 21:15 | NUR ---
BLOOD GLUCOSE 189. 2 UNITS OF HUMALOG GIVEN PER SLIDING SCALE. WILL CONTINUE TO MONITOR.
--- NOTE | 2018-01-16 22:55 | NUR ---
PT SLEEPING IN BED. NO S/S OF RESPIRATORY DISTRESS OR DISCOMFORT NOTED AT THIS TIME. CALL LIGHT WITHIN REACH. WILL CONTINUE TO MONITOR.
[2018-01-17] VITALS: BP 133/83
--- NOTE | 2018-01-17 00:15 | NUR ---
PT AWAKE ASKING FOR A SANDWICH. PROVIDED PT WITH A SNACK UNTIL SANDWICH ARRIVES.
--- NOTE | 2018-01-17 00:30 | NUR ---
PT EATING SANDWICH PROVIDED. WILL CONTINUE TO MONITOR.
--- NOTE | 2018-01-17 02:05 | NUR ---
PT SLEEPING AT THIS TIME. WILL CONTINUE TO MONITOR.
[2018-01-17] MEDS: methylPREDNISolone SS 40 MG/ML VIAL IVP SCH (04:38)
--- NOTE | 2018-01-17 04:40 | NUR ---
PT TOLERATED SCHEDULED MEDICATION WELL. PT CONTINUES TO SLEEP. WILL CONTINUE TO MONITOR.
[2018-01-17] MEDS: BLOOD GLUCOSE MONITORING 1 DEV DEV FS SCH ×2 (06:36→11:33)
[2018-01-17] MEDS: ALBUTEROL SULFATE/IPRATROPIU 3 ML SOL IH SCH ×2 (06:49→11:59)
[2018-01-17 07:00] LABS: HEMATOCRIT 38.4 % (36-48); HEMOGLOBIN 12.2 g/dL (12.0-16.0); MEAN CORPUSCULAR HEMOGLOBIN 27 pg (27-31); MEAN CORPUSCULAR HGB CONC 32 g/dL (33-37); MEAN CORPUSCULAR VOLUME 84.2 fL (80-94); PLATELET COUNT (AUTO) 530 K/uL (140-450); RED BLOOD CELL COUNT(AUTO) 4.56 MIL/uL (4.20-5.40); RED CELL DISTRIBUTION WIDTH 15.5 % (11.6-13.7); WHITE BLOOD COUNT (AUTO) 19.3 K/uL (4.8-10.8)
--- NOTE | 2018-01-17 07:15 | NUR ---
ENDORSED PT CARE TO DAY SHIFT NURSE BAYLEE. PT IN STABLE CONDITION AT THIS TIME.
--- NOTE | 2018-01-17 07:17 | NUR ---
RECEIVED PATIENT REPORT AT BEDSIDE FROM NIGHT NURSE, PATIENT IS AAOX4 AND SHOWS NO S/S OF ACUTE DISTRESS ON ROOM AIR, SKIN IS INTACT; HOWEVER PATIENT HAS ROUGH DRY SKIN AT BLE, IV NOTED ON THER LEFT WRIST SL PATENT AND INTACT. NIETO CATHETER NOTED WITH YELLOW URINE DRAINING, PATIENT DENIES PAIN, DISCUSSED POC WITH PATIENT AND SHE VERBALIZED UNDERSTANDING OF CARE. BED IN LOW POSITION WITH CALL LIGHT WITHIN REACH.
[2018-01-17 07:24] LABS: ANION GAP 12.2 (8-16); CARBON DIOXIDE 30.8 mmol/L (21-32)
[2018-01-17 08:01] VITALS: BP 163/94
[2018-01-17 08:15] LABS: LYMPHOCYTES % (MANUAL) 4 % (20-46); MONOCYTES % (MANUAL) 3 % (5-12)
[2018-01-17] MEDS: LISINOPRIL 20 MG TAB PO SCH (08:16)
[2018-01-17] MEDS: CARVEDILOL 3.125 MG TAB PO SCH (08:17)
[2018-01-17] MEDS: ATORVASTATIN 20 MG TAB PO SCH (08:17)
[2018-01-17] MEDS: ACETAMINOPHEN 325 MG TAB PO PRN (08:17)
[2018-01-17] MEDS: ASPIRIN 81 MG TAB.CHEW PO SCH (08:17)
[2018-01-17] MEDS: LACTOBACILLUS RHAMNOSUS GG 1 EACH CAP PO SCH ×2 (08:17)
[2018-01-17] MEDS: DOCUSATE SODIUM 100 MG GELCAP PO SCH (08:17)
[2018-01-17] MEDS: FUROSEMIDE 40 MG/4 ML VIAL IVP SCH (08:18)
--- NOTE | 2018-01-17 08:23 | NUR ---
ADMINISTERED SCHEDULED MEDICATIONS, PATIENT ALSO C/O HEADACHE AND WAS GIVEN TYLENOL 650 MG PO. WILL REASSESS PAIN IN ONE HR.
[2018-01-17] MEDS ORDERED: METH4TAB1 PO (10:23)
--- NOTE | 2018-01-17 12:01 | NUR ---
NIETO CATHETER DISCONTINUED 1450 CC OF CLEAR YELLOW URINE OUTPUT.
--- NOTE | 2018-01-17 12:10 | NUR ---
PATIENT'S BLOOD SUGAR WAS 157, INSULIN SLIDING SCALE IS INDICATED; HOWEVER PATIENT REFUSED AND STATED, "NO LO USO EN LA CASA, ME VAN A RIN TELLY HORITA. NO LO QUIERO." PATIENT REFUSED TO TAKE INDICATED INSULIN SLIDING SCALE PATIENT STATED SHE DOES NOT USE IT AT HOME, AND SHE WILL CONTINUE HER HOME MEDICATIONS ONCE SHE IS DISCHARGED TODAY.
--- NOTE | 2018-01-17 12:45 | NUR ---
PATIENT AMB TO RESTROOM AND VOIDED.
--- NOTE | 2018-01-17 13:05 | NUR ---
PATIENT HAS BEEN DISCHARGED, ALL PAPERWORK SIGNED, DISCHARGE INSTRUCTIONS GIVEN AND PRESCRIPTIONS, ALL QUESTIONS ANSWERED, ALL BELONGINGS AND PRESCRIPTIONS IN PATIENT'S POSSESSION, IV WAS DISCONTINUED WITH CANNULA INTACT. PATIENT VERBALIZED UNDERSTANDING OF HER CONTINUITY OF CARE. WRISTBANDS REMOVED. PATIENT WAS OFFERED WHEELCHAIR HOWEVER SHE PREFERRED TO AMB OFF UNIT. PATIENT AMB OFF UNIT WITH STEADY GAIT.
--- NOTE | 2018-01-17 13:36 | NUR ---
PHYSICAL THERAPY CO-SIGN The Physical Therapy Progress Notes documented by Heavy Machinery Operator have been reviewed. I CONCUR W/SENIOR IT ASSISTANT NOTE Reviewed/Co-Signed by: Jinny Darden PT Documentation Done by: MAGDA POLLARD PTA Addendum: 01/17/18 at 1337 by Jinny Darden PT Amended: Links added.
== END 2018-01-17 13:05 | disposition home or self-care (01) | DRG 194 ==
LOC: MED 18:39 → MTU 01-15 00:36
PROVIDERS: ADMIT Family Medicine Sports Medicine; ATTEND Family Medicine Sports Medicine
DX: I11.0 Hypertensive heart disease with heart failure (principal); J96.01 Acute respiratory failure with hypoxia; N17.0 Acute kidney failure with tubular necrosis; D68.59 Other primary thrombophilia; E11.51 Type 2 diabetes mellitus with diabetic peripheral angiopathy without gangrene; E11.65 Type 2 diabetes mellitus with hyperglycemia; E44.1 Mild protein-calorie malnutrition; I50.43 Acute on chronic combined systolic (congestive) and diastolic (congestive) heart failure; I42.7 Cardiomyopathy due to drug and external agent; F19.10 Other psychoactive substance abuse, uncomplicated; E02 Subclinical iodine-deficiency hypothyroidism; F15.10 Other stimulant abuse, uncomplicated; M62.50 Muscle wasting and atrophy, not elsewhere classified, unspecified site; J45.901 Unspecified asthma with (acute) exacerbation; I16.0 Hypertensive urgency; F17.200 Nicotine dependence, unspecified, uncomplicated; I25.10 Atherosclerotic heart disease of native coronary artery without angina pectoris; R80.9 Proteinuria, unspecified; T50.905A Adverse effect of unspecified drugs, medicaments and biological substances, initial encounter; I16.1 Hypertensive emergency; Y92.89 Other specified places as the place of occurrence of the external cause; Z91.14 Patient's other noncompliance with medication regimen; Z90.721 Acquired absence of ovaries, unilateral; Z79.899 Other long term (current) drug therapy; Z68.22 Body mass index [BMI] 22.0-22.9, adult; Z79.82 Long term (current) use of aspirin
CPT/HCPCS: 36415; 36600; 71045; 71275; 80048; 80053; 80305; 81001; 82150; 82550; 82553; 82803; 82948; 83036; 83605; 83690; 83735; 83880; 84100; 84439; 84443; 84484; 85025; 85610; 85730; 87040; 87081; 87086; 93005; 93970; 94640; 96365; 96367; 96372; 96375; 96376; 97110; 97116; 97530; 99285; J0360; J0456; J0696; J1650; J1885; J1940; J2270; J2920; J2930; J7030; J7060; J7620; Q0092; Q9967

== ENCOUNTER 2018-01-19 17:01 | Emergency (ER) | payer MEDICAID ==
[~2018-01-19] VITALS: Ht 152.4 cm; Wt 56.7 kg
[~2018-01-19 17:01] MED LIST changes: -CLIN300C2 PO; -LACT10CA PO; -LEVO750T2 PO; +METH4TAB1 PO
[2018-01-19 17:03] VITALS: BP 136/101
--- NOTE | 2018-01-19 17:10 | NUR ---
52 yo female [facility] pd for prebook exam. c/o SORE THROAT , COUGH & sob and hx of asthma and chf & HTN . awake and alert able to ambulate. PT STATED CAME HERE WITH SAME S/S X 2 DAYS AGO BUT DIDN'T TAKE DISCHARGE MEDS. BRUISE TO RIGHT UPPER ARM. AAOX4 WITH EVEN AND STEADY GAIT; LUNGS WHEEZING BL. PT DENIES ANY FEVER OR CP AT THIS TIME. PATIENT STATES PAIN OF 2/10 AT THIS TIME
--- NOTE | 2018-01-19 17:21 | NUR ---
Patient being evaluated by DR STROUD at bedside.
--- NOTE | 2018-01-19 17:23 | NUR ---
RT AT BEDSIDE FOR BREATHING TREATMENT.
[2018-01-19] MEDS ORDERED: ALBUTEROL SULFATE/IPRATROPIU 3 ML SOL IH ONE (17:25)
[2018-01-19] MEDS ORDERED: DEXAMETHASONE 10 MG/ML VIAL IM ONE (17:25)
[2018-01-19] MEDS ORDERED: cloNIDine 0.1 MG TAB ONE (17:49)
--- NOTE | 2018-01-19 17:51 | NUR ---
GAVE CATAPRESS 0.2MG PO PER MD DR STROUD ORDERED.
[2018-01-19] MEDS ORDERED: cloNIDine 0.1 MG TAB PO ONE ×2 (18:10)
[2018-01-19 18:25] VITALS: BP 171/99
--- NOTE | 2018-01-19 18:26 | NUR ---
Patient discharged with v/s stable. Written and verbal after care instructions given and explained. Patient verbalized understanding. Police with in custody. All questions addressed prior to discharge. Advised to follow up with PMD.
== END 2018-01-19 18:26 ==
LOC: MED 17:01
DX: Z02.89 Encounter for other administrative examinations (principal); R06.02 Shortness of breath; J45.909 Unspecified asthma, uncomplicated; I10 Essential (primary) hypertension; I50.9 Heart failure, unspecified; Z79.82 Long term (current) use of aspirin; Z79.899 Other long term (current) drug therapy
CPT/HCPCS: 94640; 96372; 99283; J1100; J7620

== ENCOUNTER 2018-07-04 08:31 | Inpatient (IN) | payer MEDICAID ==
[~2018-07-04] VITALS: Ht 157.5 cm; Wt 57.6 kg
[2018-07-04 08:35] VITALS: BP 175/115
--- NOTE | 2018-07-04 08:35 | NUR ---
PT AMBULATES TO BED 9
[2018-07-04] MEDS ORDERED: ENALAPRILAT 2.5 MG/2 ML VIAL IVP ONE (08:50)
[2018-07-04] MEDS ORDERED: NITROGLYCERIN 2% 1 GM PKT TP ONE (08:50)
[2018-07-04] MEDS ORDERED: ALBUTEROL 0.083% 2.5 MG/3 ML NEBU INH ONE (08:50)
[2018-07-04] MEDS ORDERED: FUROSEMIDE 40 MG/4 ML VIAL IVP ONE (08:50)
--- NOTE | 2018-07-04 09:04 | NUR ---
53 Y.O ROHIT PECK CAME IN FOR SOB X2 DAYS. PT IS UNABLE TO CATCH HER BREATH AND COMMUNICATE. PT HAS LABORED BREATHING, ACCESSORY MUSCLE USE, STRIDOR AUDIBLE. WHEEZING PRESENT IN UPPER LOBES AND RIGHT MIDDLE, DIMINISHED IN BOTH LOWER LOBES. BILATRALLY JVD PRESENT. PLACED PT ON 2L NC; SPO2 99%. PT HAS A DRY, NONPRODUCTIVE COUGH. SHE IS DIAPHORETIC. SKIN ON LOWER LIMBS IS COOL TO THE TOUCH AND PT STATES THE HER HANDS AND FEET ARE ALWAYS COLD. PT STATES THAT NOTHING IS HELPING TO MAKE HER BREATHING EASIER. S1S2 PRESENT, TACHYCARDIA (HR 118) ON THE MONITOR. BP IS 175/104. MEDICAL HISTORY INCLUDES: CHF ASTHMA HTN
[2018-07-04 09:10] LABS: BASOPHILS # (AUTO) 0.1 K/uL (0.00-0.22); BASOPHILS % (AUTO) 0.8 % (0.0-2.0); EOSINOPHILS # (AUTO) 0.1 K/uL (0-0.4); EOSINOPHILS % (AUTO) 1.6 % (0.0-4.0); HEMATOCRIT 35.9 % (36-48); HEMOGLOBIN 11.2 g/dL (12.0-16.0); LYMPHOCYTES # (AUTO) 1.2 K/uL (2.5-16.5); MEAN CORPUSCULAR HEMOGLOBIN 26 pg (27-31); MEAN CORPUSCULAR HGB CONC 31 g/dL (33-37); MEAN CORPUSCULAR VOLUME 83.2 fL (80-94); MONOCYTES # (AUTO) 0.3 K/uL (0.8-1.0); MONOCYTES % (AUTO) 3.8 % (1.7-9.3); NEUTROPHILS # (AUTO) 6.6 K/uL (1.8-7.7); NEUTROPHILS % (AUTO) 79.8 % (42.2-75.2); PLATELET COUNT (AUTO) 354 K/uL (140-450); RED BLOOD CELL COUNT(AUTO) 4.31 MIL/uL (4.20-5.40); RED CELL DISTRIBUTION WIDTH 17.6 % (11.6-13.7); WHITE BLOOD COUNT (AUTO) 8.3 K/uL (4.8-10.8)
--- NOTE | 2018-07-04 09:20 | NUR ---
RT AT BEDSIDE
[2018-07-04 09:31] LABS: ANION GAP 9.2 (8-16); CARBON DIOXIDE 29.6 mmol/L (21-32); CREATININE 1.1 mg/dL (0.6-1.3); POTASSIUM 4.8 mmol/L (3.5-5.1)
[2018-07-04 09:37] LABS: ALBUMIN 2.8 g/dL (3.4-5.0); TOTAL BILIRUBIN 0.6 mg/dL (0.0-1.0)
[2018-07-04] MEDS ORDERED: HYDROcodone/APAP 7.5/325 MG 1 TAB PO PRN (10:05)
[2018-07-04] MEDS ORDERED: ACETAMINOPHEN 325 MG TAB PO PRN (10:05)
[2018-07-04] MEDS ORDERED: ONDANSETRON 4 MG/2 ML VIAL IM/IVP PRN (10:05)
[2018-07-04] MEDS ORDERED: DOCUSATE SODIUM 100 MG GELCAP PO PRN (10:05)
[2018-07-04 10:44] LABS: APPEARANCE,URINE CLEAR (CLEAR); BILIRUBIN,URINE NEGATIVE (NEGATIVE); BLOOD, URINE NEGATIVE (NEGATIVE); COLOR,URINE YELLOW (YELLOW); LEUKOCYTE ESTERASE ,URINE TRACE (NEGATIVE); NITRITE, URINE NEGATIVE (NEGATIVE); UGLUCOSE NEGATIVE (NEGATIVE)
[2018-07-04 10:56] LABS: RBC,URINE 0-5 (RARE) /HPF (0-5)
--- NOTE | 2018-07-04 11:25 | NUR ---
PT TAKEN TO FLOOR BY SANTOS MCKEON AND EMT OTTO
--- NOTE | 2018-07-04 11:30 | NUR ---
RECEIVED REPORT FROM ER NURSE AT BEDSIDE. PT DX CHF, CC SOB. HX OF ASTHMA, HTN, DM , CHF.PT AMBULATORY , SKIN INTACT. VS NOTED O2 98% ON RA, HAS MILD LABORED BREATHING, WHEEZING LUNG SOUND ON RT LOBE, DIMINISHED LUNG SOUND ON LFT LOBE. HR 111, COMPLAINING OF CHEST PAIN ON HER LFT SIDE. T 97.8, RR 24. RAISED THE HOB, PT STAES FELT COMFORTABLE. HAS IV ACCESS ON LFT AC 20G. CONTINUED MONITORING PT O2 SAT. WILL CONTINUE TO MONITOR PT.
--- NOTE | 2018-07-04 11:32 | NUR ---
TRANSFERRED PT TO ROOM 105B. GAVE BEDSIDE REPORT TO RN FOR CONTINUATION OF CARE.
[2018-07-04 12:00] VITALS: BP 154/90
[2018-07-04 12:02] LABS: PROTHROMBIN TIME 10.6 secs (10.8-13.4)
[2018-07-04 12:20] LABS: BARBITURATE, URINE NEG. ng/ml (NEG <=200); BENZODIAZEPINE, URINE NEG. ng/mL (NEG <=200); CANNABINOID, URINE NEG. ng/mL (NEG <=50); COCAINE, URINE NEG. ng/mL (NEG <=300); OPIATE, URINE NEG. ng/mL (NEG <=2000); PHENCYCLIDINE SCREEN,URINE NEG. ng/mL (NEG <=25)
[2018-07-04 12:33] LABS: CHOL/HDL RATIO 2.8 (1-4.5); PHOSPHORUS 3.7 mg/dL (2.5-4.9); THYROID STIMULATING HORMONE 1.67 uIU/mL (0.34-3.74)
[2018-07-04] MEDS ORDERED: CARVEDILOL 3.125 MG TAB PO SCH ×2 (14:06→21:00)
[2018-07-04] MEDS ORDERED: LISINOPRIL 20 MG TAB PO SCH (14:07)
[2018-07-04] MEDS ORDERED: FUROSEMIDE 40 MG/4 ML VIAL IVP SCH (14:35)
[2018-07-04] MEDS ORDERED: ALBUTEROL SULFATE/IPRATROPIU 3 ML SOL INH PRN (14:40)
[2018-07-04] MEDS ORDERED: DEXTROSE 50% 50 ML SYR IVP PRN (14:45)
[2018-07-04 16:00] VITALS: BP 150/99
[2018-07-04] MEDS: BLOOD GLUCOSE MONITORING 1 DEV DEV FS SCH ×2 (16:30→20:35)
--- NOTE | 2018-07-04 16:30 | NUR ---
CHECKED ON PT. ADMINISTERED BP MEDS SCHEDULED. STARTED ROCEPHIN ON PT. TOLERATED WELL. INFORMED THAT PT IS ON FLUID RESTRICTION 1000ML/DAY R/T HER DX. VERBALIZED UNDERSTANDING. FAMILY AT BEDSIDE. NO SIGN OF DISTRESS NOTED . RESPIRATION RATE 20, NO DISTRESS. WILL CONTINUE TO MONITOR PT.
[2018-07-04] MEDS: NACL 0.9% 1,000 ML IV SCH (16:44)
--- NOTE | 2018-07-04 18:07 | NUR ---
CHECKED ON PT. FAMILY AT THE BEDSIDE. INFORMED PT AND THE FAMILY THAT PT IS ON FLUID RESTRICTION 1000 ML/DAY. VERBALIZED UNDERSTANDING OF TEACHING. PT EATING HER DINNER. O2 SAT 96% ON RA. NO SIGN OF DISTRESS NOTED. WILL CONTINUE TO MONITOR PT.
[2018-07-04] MEDS: INSULIN LISPRO SLIDING SCALE 100 UNITS/ML VIAL SUBQ PRN (18:43)
--- NOTE | 2018-07-04 19:15 | NUR ---
ENDORSED PT TO PM NURSE AT BEDSIDE FOR CONTINUITY OF CARE. PT IN STABLE CONDITION.
--- NOTE | 2018-07-04 19:16 | NUR ---
RECEIVED REPORT FROM AM SHIFT NURSE AT PT'S BEDSIDE. PT SMILING, AWAKE & VERBAL, NO SIGNS OF DISTRESS. CALL LIGHT WITHIN REACH.
[2018-07-04 20:00] VITALS: BP 149/93
--- NOTE | 2018-07-04 20:35 | NUR ---
DUE MEDS GIVEN AT THIS TIME. PT ALERT & AWAKE, DENIES ANY DISCOMFORT, NO RESPIRATORY DISTRESS IN ROOM AIR. REINFORCED FLUID RESTRICTIONS. PT VERBALIZED UNDERSTANDING. CALL LIGHT WITHIN REACH. WILL CONTINUE TO MONITOR.
--- NOTE | 2018-07-04 22:15 | NUR ---
ASSISTED PT WITH ORAL CARE & TO CHANGE HOSPITAL GOWN. PT ABLE TO PERFORM ADL TASKS WITH GOOD SAFETY TECHNIQUES. DENIES ANY DISCOMFORT. ENCOURAGED TO USE CALL STAFF FOR ASSISTANCE PRN. PT ABLE TO RETURN DEMONSTRATE PROPER USE OF CALL BUTTON.
[2018-07-05] VITALS (7 sets, daily range): BP systolic 128–155; BP diastolic 82–111
--- NOTE | 2018-07-05 00:10 | NUR ---
PT ASLEEP, AROUSABLE BY VOICE. VITAL SIGNS OBTAINED. PT DENIES ANY DISCOMFORT. RESPIRATIONS DEEP, BUT EVEN & UNLABORED. NO RESP DISTRESS IN ROOM AIR. OFFERED TO ASSIST PT TO TOILET, DENIES NEED AT THIS TIME. LEFT AC IV INTACT & ASYMPTOMATIC.
--- NOTE | 2018-07-05 02:42 | NUR ---
PT ASLEEP IN BED WITH HOB @ ABOUT 30DEG. RESPIRATIONS EVEN & UNLABORED. CALL LIGHT WITHIN REACH. LEFT AC IV ACCESS INTACT & ASYMPTOMATIC.
--- NOTE | 2018-07-05 03:35 | NUR ---
PT AWAKE, SITTING UP @ EDGE OF BED. PT REQUESTS FOR SNACK. [employer] SANDWICH PROVIDED. DENIES ANY PAIN OR DISCOMFORT. RESPIRATIONS EVEN & UNLABORED. PT CONSUMED 100% OF SNACK WITH 240ML OF WATER. PT LAID BACK DOWN TO BED. CALL LIGHT PLACED WITHIN REACH. DENIES NEED TO USE RESTROOM AT THIS TIME. WILL CONTINUE TO MONITOR.
--- NOTE | 2018-07-05 04:15 | NUR ---
PT ASLEEP, AROUSABLE BY VOICE. VITAL SIGNS OBTAINED. PT RR 22/MIN NON-LABORED. PT DENIES ANY DISCOMFORT. PT WENT BACK TO SLEEP WITH HOB @ 30DEG. CALL LIGHT WITHIN REACH. LEFT AC IV TRANSPARENT DRESSING PEELING OFF. DRESSING CHANGED. IV PATENT WITH GOOD BACKFLOW, FLUSHED WITH 5ML NS.
[2018-07-05] MEDS: BLOOD GLUCOSE MONITORING 1 DEV DEV FS SCH ×4 (05:38→20:03)
[2018-07-05] MEDS: INSULIN LISPRO SLIDING SCALE 100 UNITS/ML VIAL SUBQ PRN ×2 (05:44→20:04)
--- NOTE | 2018-07-05 06:00 | NUR ---
PT ASLEEP, RESPIRATIONS EVEN & UNLABORED, AROUSABLE BY AUDITORY STIMULI. LEFT AC IV ACCESS INTACT & ASYMPTOMATIC WITH ONGOING NS INFUSION @ 10ML/HR. CALL LIGHT WITHIN REACH.
[2018-07-05 06:14] LABS: T4 (THYROXINE) 5.5 ug/dL (4.5-12.0)
--- NOTE | 2018-07-05 07:10 | NUR ---
BEDSIDE REPORT GIVEN TO AM SHIFT NURSE.
--- NOTE | 2018-07-05 07:12 | NUR ---
RECEIVED BEDSIDE REPORT FROM CAR CUSTOMIZER NURSE. PATIENT IS SLEEPING. NO SIGNS OF DISTRESS. PATIENT IS AMBULATORY. SKIN IS INTACT. TELE MONITOR IN PLACE. L AC 20G INFUSING NS AT 10 TKO. BED IN LOW POSITION. CALL LIGHT WITHIN REACH. WILL CONTINUE TO MONITOR THE PATIENT.
--- NOTE | 2018-07-05 08:37 | NUR ---
PATIENT HAS BEEN SCREENED AND CATEGORIZED MODERATE NUTRITION RISK. PATIENT WILL BE SEEN WITHIN 3-5 DAYS OF ADMISSION. 07/06/18 07/08/[address]
[2018-07-05] MEDS ORDERED: FUROSEMIDE 40 MG/4 ML VIAL IVP SCH (09:00)
[2018-07-05] MEDS ORDERED: AZITHROMYCIN 250 MG TAB PO SCH (09:00)
[2018-07-05] MEDS: ASPIRIN 81 MG TAB.CHEW PO SCH (09:42)
[2018-07-05] MEDS: LISINOPRIL 20 MG TAB PO SCH (09:43)
[2018-07-05] MEDS: ATORVASTATIN 20 MG TAB PO SCH (09:43)
[2018-07-05] MEDS: FUROSEMIDE 40 MG/4 ML VIAL IVP SCH (09:44)
--- NOTE | 2018-07-05 09:49 | NUR ---
ADMINISTERED MEDS. PATIENT TOLERATED WELL. PATIENT FEELS SOB, PAGED RT TO GIVE HER A BREATHING TX, RT TO COME AND SEE THE PATIENT. WILL CONTINUE TO MONITOR THE PATIENT
[2018-07-05 09:55] LABS: BASOPHILS # (AUTO) 0.1 K/uL (0.00-0.22); BASOPHILS % (AUTO) 0.8 % (0.0-2.0); EOSINOPHILS # (AUTO) 0.3 K/uL (0-0.4); EOSINOPHILS % (AUTO) 4.6 % (0.0-4.0); HEMATOCRIT 37.1 % (36-48); HEMOGLOBIN 11.5 g/dL (12.0-16.0); LYMPHOCYTES % (AUTO) 13.7 % (20.5-51.1); MEAN CORPUSCULAR HEMOGLOBIN 26 pg (27-31); MEAN CORPUSCULAR HGB CONC 31 g/dL (33-37); MEAN CORPUSCULAR VOLUME 82.8 fL (80-94); MONOCYTES # (AUTO) 0.4 K/uL (0.8-1.0); MONOCYTES % (AUTO) 5.2 % (1.7-9.3); NEUTROPHILS # (AUTO) 5.8 K/uL (1.8-7.7); NEUTROPHILS % (AUTO) 75.7 % (42.2-75.2); PLATELET COUNT (AUTO) 366 K/uL (140-450); RED BLOOD CELL COUNT(AUTO) 4.48 MIL/uL (4.20-5.40); RED CELL DISTRIBUTION WIDTH 17.3 % (11.6-13.7); WHITE BLOOD COUNT (AUTO) 7.6 K/uL (4.8-10.8)
[2018-07-05 09:58] LABS: ANION GAP 5.1 (8-16); CARBON DIOXIDE 34.2 mmol/L (21-32); CREATININE 1.2 mg/dL (0.6-1.3); POTASSIUM 4.3 mmol/L (3.5-5.1)
[2018-07-05] MEDS: NACL 0.9% 1,000 ML IV SCH (10:05)
--- NOTE | 2018-07-05 10:07 | NUR ---
REVIEWED PATIENT ASSESSMENT AND DIAGNOSTIC FINDINGS WITH DR REGI CARNES MD TO ADD FREQUENCY TO Q6WAR AND OXYGEN SATURATION GREATER THAN 92%
[2018-07-05] MEDS ORDERED: guaiFENesin DM 200/20 MG-10 ML 10 ML UDC PO PRN (10:25)
--- NOTE | 2018-07-05 11:11 | NUR ---
PATIENT LAYING IN BED. NO RESP DISTRESS. SHE SAID SHE FEELS BETTER AFTER THE BREATHING TX RT GAVE HER. WILL CONTINUE TO MONITOR THE PATIENT
--- NOTE | 2018-07-05 12:24 | NUR ---
PATIENT IS EATING LUNCH. NO SIGNS OF DISTRESS ON ROOM AIR. WILL CONTINUE TO MONITOR THE PATIENT. EXPLAINED TO THE PATIENT I HAD TO REMOVE PITCHER OF WATER. SHE WANTS TO DRINK JUICE AND SHE HAS 1L FLUID RESTRICTIONS. PATIENT ALREADY AT AROUND 700ML OF FLUIDS FOR THE DAY
--- NOTE | 2018-07-05 14:05 | NUR ---
PATIENT IS SLEEPING. NO SIGNS OF DISTRESS. WILL CONTINUE TO MONITOR THE PATIENT
[2018-07-05] MEDS: ALBUTEROL SULFATE/IPRATROPIU 3 ML SOL IH SCH ×2 (15:01→18:52)
--- NOTE | 2018-07-05 15:26 | NUR ---
ADMINISTERED ANTIBIOTICS. PATIENT TOLERATED WELL. IV IS CLEAN, DRY AND INTACT. SHE IS CURRENTLY ON THE PHONE. NO SIGNS OF DISTRESS. WILL CONTINUE TO MONITOR THE PATIENT
--- NOTE | 2018-07-05 16:32 | NUR ---
PATIENT SITTING IN BED USING HER PHONE. NO SIGNS OF DISTRESS. WILL CONTINUE TO MONITOR THE PATIENT
--- NOTE | 2018-07-05 18:00 | NUR ---
PATIENT HAS NO SIGNS OF DISTRESS. WILL CONTINUE TO MONITOR THE PATIENT
[2018-07-05] MEDS: BUDESONIDE 0.5 MG/2 ML NEBU INH SCH (18:53)
--- NOTE | 2018-07-05 19:00 | NUR ---
GAVE BEDSIDE REPORT TO TUBE SPLICER NURSE. ENDORSED PATIENT IN STABLE CONDITION
--- NOTE | 2018-07-05 19:05 | NUR ---
RECEIVED PATIENT AWAKE RESTING ON BED. BED IN LOW LOCKED POSITION. DISCUSSED PLAN OF CARE AND VERBALIZED UNDERSTANDING. CALL LIGHT WITHIN REACH. WILL CONTINUE TO MONITOR.
[2018-07-05] MEDS: CARVEDILOL 6.25 MG TAB PO SCH (20:19)
--- NOTE | 2018-07-05 22:05 | NUR ---
V/S TAKEN AND RECORDED. BS TAKEN 153 . INSULIN GIVEN PER SLIDING SCALE. MEDICATION GIVEN AND TOLERATED WELL. NO S/S OF DISTRESS NOTED. WILL CONTINUE TO MONITOR.
--- NOTE | 2018-07-06 | NUR ---
V/S TAKEN AND RECORDED. PATIENT SEEN LYING ON BED. CALL LIGHT WITHIN REACH. NO S/S OF DISTRESS NOTED AT THIS TIME.
[2018-07-06 04:00] VITALS: BP 133/98
--- NOTE | 2018-07-06 04:00 | NUR ---
V/S TAKEN AND RECORDED. NO S/S OF DISTRESS NOTED. CALL LIGHT WITHIN REACH. WILL CONTINUE TO MONITOR.
[2018-07-06] MEDS: INSULIN LISPRO SLIDING SCALE 100 UNITS/ML VIAL SUBQ PRN (06:30)
[2018-07-06] MEDS: BLOOD GLUCOSE MONITORING 1 DEV DEV FS SCH (06:35)
--- NOTE | 2018-07-06 07:05 | NUR ---
ENDORSEMENT GIVEN TO AM SHIFT NURSE AT BEDSIDE FOR CONTINUITY OF CARE. PATIENT IN STABLE CONDITION.
--- NOTE | 2018-07-06 07:06 | NUR ---
RECEIVED REPORT FROM PM NURSE AT BEDSIDE. PT SLEEPING. NO SOB. HAS IV ON LFT AC 20 G, IFF INFUSING AT 10 ML /HR. ON FLUID RESTRICTION 1L/DAY. SPUTUM COLLECTED AND SENT TO LAB FOR CULTURE. PT ON BERATING TREATMENT. PT AOX4, AMBULATORY. NO SIGN OF DISTRESS NOTED. PLACED CALL LIGHT WITHIN PT REACH. INFORMED HER TO USE CALL LIGHT FOR ANY HELP. BED AT LOWER POSITION. PT ANGOLAN SPEAKING ONLY. WILL CONTINUE TO MONITOR PT.
[2018-07-06 07:16] LABS: BASOPHILS # (AUTO) 0.1 K/uL (0.00-0.22); BASOPHILS % (AUTO) 1.1 % (0.0-2.0); EOSINOPHILS # (AUTO) 0.4 K/uL (0-0.4); EOSINOPHILS % (AUTO) 6.7 % (0.0-4.0); HEMATOCRIT 36.3 % (36-48); HEMOGLOBIN 11.4 g/dL (12.0-16.0); LYMPHOCYTES % (AUTO) 18.4 % (20.5-51.1); MEAN CORPUSCULAR HEMOGLOBIN 26 pg (27-31); MEAN CORPUSCULAR HGB CONC 31 g/dL (33-37); MEAN CORPUSCULAR VOLUME 83.1 fL (80-94); MONOCYTES # (AUTO) 0.5 K/uL (0.8-1.0); MONOCYTES % (AUTO) 9.2 % (1.7-9.3); NEUTROPHILS # (AUTO) 3.6 K/uL (1.8-7.7); NEUTROPHILS % (AUTO) 64.6 % (42.2-75.2); PLATELET COUNT (AUTO) 377 K/uL (140-450); RED BLOOD CELL COUNT(AUTO) 4.37 MIL/uL (4.20-5.40); RED CELL DISTRIBUTION WIDTH 17.3 % (11.6-13.7); WHITE BLOOD COUNT (AUTO) 5.5 K/uL (4.8-10.8)
[2018-07-06 07:25] LABS: ANION GAP 4.5 (8-16); CREATININE 1.1 mg/dL (0.6-1.3); POTASSIUM 4.5 mmol/L (3.5-5.1)
[2018-07-06] MEDS: ALBUTEROL SULFATE/IPRATROPIU 3 ML SOL IH SCH (07:34)
[2018-07-06] MEDS: BUDESONIDE 0.5 MG/2 ML NEBU INH SCH (07:34)
[2018-07-06 08:07] VITALS: BP 151/105
[2018-07-06] MEDS ORDERED: AZITHROMYCIN 250 MG TAB PO SCH (09:00)
--- NOTE | 2018-07-06 09:40 | NUR ---
ADMINISTERED MEDS TO PT ORDERED. TOLERATED WELL. NO SIGN OF DISTRESS. PT WAS SLEEPING , IVF INFUSING WELL. @ 10 ML/HR. WILL CONTINUE TO MONITOR PT.
[2018-07-06] MEDS: CARVEDILOL 6.25 MG TAB PO SCH (09:41)
[2018-07-06] MEDS: ATORVASTATIN 20 MG TAB PO SCH (09:41)
[2018-07-06] MEDS: FUROSEMIDE 40 MG/4 ML VIAL IVP SCH (09:42)
[2018-07-06] MEDS: LISINOPRIL 20 MG TAB PO SCH (09:43)
[2018-07-06] MEDS: ASPIRIN 81 MG TAB.CHEW PO SCH (09:43)
[2018-07-06] MEDS ORDERED: AZIT1PDR6 PO (10:04)
--- NOTE | 2018-07-06 11:45 | NUR ---
CHECKED ON PT. INFORMED HER OF HER DC ORDER. WILL WORK ON DC PAPER. PT STATES THAT SHE HAVE NO ONE PICK HER UP AT THIS TIME. EVERYONE IN FAMILY IS WORKING. DAUGHTER IN ICU. INFORMED THAT HOSPITAL WILL PROVIDE BUS-PASS . STATES WILL LEAVE BY PM AROUND 1900 IF SOMEONE WILL FAMILY WILL COME TO PICK HER UP. CHARGE NURSE AWARE. WILL TALK TO PT.
--- NOTE | 2018-07-06 14:00 | NUR ---
PT DC. USED THE CHILD NURSE SERVICE TO MAKE PT UNDERSTAND HER DC INSTRUCTION. ID # [id number], NAME OF CHILD NURSE JESUS ALBERTO. PT VERBALIZED UNDERSTANDING OF HER DC INSTRUCTION. INSTRUCTED HER TO COMPLETE AZITHROMYCIN ORDER BY MD AND ALSO TAKE HOME MEDS SHE USE TO TAKE AT HOME. PT VERBALIZED UNDERSTANDING, STATES TO HAVE NO QUESTION. PT WENT HOME WITH HER DC PACKET AND ALL HER BELONGINGS. PT STABLE AT THE TIME OF DISCHARGE. WALKED OUT OF HOSPITAL ON HER OWN.
--- NOTE | 2018-07-06 20:35 | NUR ---
RECEIVED A CALL FROM DESTINY OF BLOOD BANK STATED THAT PT'S SPUTUM SPECIMEN IS CONTAMINATED WITH SALIVA AND NEEDS A RECOLLECTION, MADE AWARE THAT PT WAS DISCHARGED TODAY AT 1330.
== END 2018-07-06 13:30 | disposition home or self-care (01) | DRG 720 ==
LOC: MED 08:31 → MTU 10:05
PROVIDERS: ADMIT General Practice; ATTEND General Practice
DX: A41.9 Sepsis, unspecified organism (principal); E43 Unspecified severe protein-calorie malnutrition; I50.43 Acute on chronic combined systolic (congestive) and diastolic (congestive) heart failure; I11.0 Hypertensive heart disease with heart failure; J18.9 Pneumonia, unspecified organism; I42.9 Cardiomyopathy, unspecified; E87.1 Hypo-osmolality and hyponatremia; E11.65 Type 2 diabetes mellitus with hyperglycemia; E78.5 Hyperlipidemia, unspecified; J45.909 Unspecified asthma, uncomplicated; I45.10 Unspecified right bundle-branch block; N39.0 Urinary tract infection, site not specified; R06.03 Acute respiratory distress; Z68.23 Body mass index [BMI] 23.0-23.9, adult; Z79.82 Long term (current) use of aspirin; Z79.899 Other long term (current) drug therapy; Z90.721 Acquired absence of ovaries, unilateral; Z87.891 Personal history of nicotine dependence; Z79.84 Long term (current) use of oral hypoglycemic drugs
CPT/HCPCS: 36415; 71045; 80048; 80053; 80305; 81001; 81025; 82140; 82948; 83036; 83605; 83690; 83735; 83880; 84100; 84436; 84443; 84479; 84484; 85025; 85610; 85730; 87081; 87086; 87205; 93005; 94640; 96374; 96375; 99285; J0696; J1815; J1940; J3490; J7030; J7060; J7613; J7620; J7626; Q0092

== ENCOUNTER 2018-12-07 21:49 | Emergency (ER) | payer MEDICAID ==
[~2018-12-07] VITALS: Ht 154.9 cm; Wt 65.8 kg
[~2018-12-07 21:49] MED LIST changes: +ASPI-1718 PO; -ASPI81CT89 PO; +AZIT1PDR6 PO; -METH4TAB1 PO
[2018-12-07 21:50] VITALS: BP 132/94
[2018-12-07] MEDS ORDERED: ALBUTEROL SULFATE/IPRATROPIU 3 ML SOL IH ONE ×2 (21:55→22:20)
--- NOTE | 2018-12-07 21:55 | NUR ---
PT TAKEN TO BED 10
--- NOTE | 2018-12-07 21:56 | NUR ---
PATIENT PRESENTS ER WITH C/O SOB DUE TO ASTHMA ATTACK. PT HAS HX OF ASTHMA AND CHF. PT STATED THAT SHE TRIED TAKING HER ASTHMA MEDICATION AT HOME,BUT HAD NO RELIEF.PT HAS SOME WHEEZES BILATERAL AND A DRY COUGH. PATIENT STATES PAIN OF 7/10 AT THIS TIME; VSS; PATIENT POSITIONED FOR COMFORT; HOB ELEVATED; BEDRAILS UP X2; BED DOWN. ER MD MADE AWARE OF PT STATUS.
--- NOTE | 2018-12-07 21:56 | NUR ---
Dr. Lozano evaluating patient at bedside.
--- NOTE | 2018-12-07 21:59 | NUR ---
FLU SWAB WAS DONE, SENTTO LAB
--- NOTE | 2018-12-07 22:07 | NUR ---
Respiratory Therapist at bedside for respiratory intervention.
--- NOTE | 2018-12-07 22:07 | NUR ---
X-Ray at bedside.
[2018-12-07] MEDS ORDERED: methylPREDNISolone SS 125 MG in WATER STERILE 2 ML IV ONE (22:15)
[2018-12-07] MEDS ORDERED: ACETAMIN/CODEINE 120/12MG-5ML 5 ML UDC PO ONE (22:20)
[2018-12-07] MEDS ORDERED: methylPREDNISolone SS 125 MG/2 ML VIAL ONE (22:30)
[2018-12-07 22:44] LABS: BASOPHILS # (AUTO) 0.1 K/uL (0.00-0.22); BASOPHILS % (AUTO) 0.7 % (0.0-2.0); EOSINOPHILS # (AUTO) 0.3 K/uL (0-0.4); EOSINOPHILS % (AUTO) 3.4 % (0.0-4.0); HEMATOCRIT 37.8 % (36-48); HEMOGLOBIN 12.1 g/dL (12.0-16.0); LYMPHOCYTES # (AUTO) 0.6 K/uL (2.5-16.5); LYMPHOCYTES % (AUTO) 8.1 % (20.5-51.1); MEAN CORPUSCULAR HEMOGLOBIN 28 pg (27-31); MEAN CORPUSCULAR HGB CONC 32 g/dL (33-37); MEAN CORPUSCULAR VOLUME 87.8 fL (80-94); MONOCYTES # (AUTO) 0.5 K/uL (0.8-1.0); MONOCYTES % (AUTO) 6.7 % (1.7-9.3); NEUTROPHILS # (AUTO) 6.4 K/uL (1.8-7.7); PLATELET COUNT (AUTO) 307 K/uL (140-450); RED CELL DISTRIBUTION WIDTH 14.5 % (11.6-13.7); WHITE BLOOD COUNT (AUTO) 7.9 K/uL (4.8-10.8)
[2018-12-07 22:55] LABS: NEUTROPHILS % (AUTO) 81.1 % (42.2-75.2)
[2018-12-07 23:01] LABS: ALBUMIN 4.1 g/dL (3.4-5.0); ANION GAP 10.2 (8-16); CARBON DIOXIDE 32.4 mmol/L (21-32); CREATININE 1.1 mg/dL (0.6-1.3); POTASSIUM 3.6 mmol/L (3.5-5.1); TOTAL BILIRUBIN 1.6 mg/dL (0.0-1.0)
--- NOTE | 2018-12-07 23:25 | NUR ---
PT IS SITTING UP IN BED, PT STATES SHE IS ABLE IN LESS PAIN AND IS ABLE TO BREATH WITHOUT DIFFICULTY. ER MADE AWARE.
--- NOTE | 2018-12-08 01:37 | NUR ---
Patient discharged with v/s stable. Written and verbal after care instructions given and explained. Patient alert, oriented and verbalized understanding of instructions. Ambulatory with steady gait. All questions addressed prior to discharge. ID band removed. Patient advised to follow up with PMD. Rx of PREDNISONE AND ALBUTEROL WERE given. Patient educated on indication of medication including possible reaction and side effects. Opportunity to ask questions provided and answered.
[2018-12-08 01:38] VITALS: BP 176/115
== END 2018-12-08 01:37 | disposition home or self-care (01) ==
LOC: MED 21:49
DX: J45.909 Unspecified asthma, uncomplicated (principal); F15.10 Other stimulant abuse, uncomplicated; R10.10 Upper abdominal pain, unspecified; I11.0 Hypertensive heart disease with heart failure; I50.9 Heart failure, unspecified; E11.9 Type 2 diabetes mellitus without complications; Z98.890 Other specified postprocedural states; Z79.82 Long term (current) use of aspirin; Z79.2 Long term (current) use of antibiotics; Z79.899 Other long term (current) drug therapy; Z79.84 Long term (current) use of oral hypoglycemic drugs
CPT/HCPCS: 36415; 71045; 80053; 83605; 83880; 84484; 85025; 87804; 93005; 94640; 96374; 99284; J2930; J7620; Q0092

== ENCOUNTER 2018-12-09 04:00 | Inpatient (IN) | payer MEDICAID ==
[~2018-12-09] VITALS: Ht 165.1 cm; Wt 55.8 kg
[2018-12-09] VITALS (37 sets, daily range): BP systolic 94–166; BP diastolic 64–121
--- NOTE | 2018-12-09 04:00 | NUR ---
PT TAKEN TO BED 11
--- NOTE | 2018-12-09 04:04 | NUR ---
Dr. Lozano evaluating patient at bedside.
--- NOTE | 2018-12-09 04:08 | NUR ---
Respiratory Therapist at bedside
[2018-12-09] MEDS ORDERED: ALBUTEROL SULFATE/IPRATROPIU 3 ML SOL IH ONE ×4 (04:13→04:40)
[2018-12-09] MEDS ORDERED: methylPREDNISolone SS 125 MG in WATER STERILE 2 ML IV ONE (04:15)
--- NOTE | 2018-12-09 04:15 | NUR ---
PT BIB SELF C/O SOB. PT STATED SUDDEN ON SET OF SOB, PT PRESENTED TO THE ED W/ STEADY GATE, LABORED BREATHING, WHEEZING BL, AAOX3. BL LOWER EXTREMITY EDEMA. DENIES N/V/D. ER MD AT BEDSIDE. RT CALLED. PT PLACED ON FACE MASK AT 10L. WILL CONTINUE TO MONITOR. PMH: ASTHMA, CHF, COPD, HTN RX: ALBUTEROL
[2018-12-09] MEDS ORDERED: methylPREDNISolone SS 125 MG/2 ML VIAL ONE (04:22)
--- NOTE | 2018-12-09 04:28 | NUR ---
EKG PERFORMED AT BEDSIDE WITH RN PRESENT
--- NOTE | 2018-12-09 04:30 | NUR ---
X-Ray at bedside.
[2018-12-09] MEDS ORDERED: NITROGLYCERIN 0.4 MG TAB SL ONE (04:50)
[2018-12-09 04:51] LABS: ALBUMIN 3.7 g/dL (3.4-5.0); TOTAL BILIRUBIN 0.4 mg/dL (0.0-1.0)
[2018-12-09] MEDS ORDERED: LORazepam 2 MG/ML VIAL IVP ONE (05:00)
[2018-12-09] MEDS ORDERED: OSELTAMIVIR PHOSPHATE 75 MG CAP PO ONE (05:00)
[2018-12-09] MEDS ORDERED: LORazepam 0.5 MG TAB PO ONE (05:00)
[2018-12-09] MEDS ORDERED: LORazepam 2 MG/ML VIAL ONE (05:10)
--- NOTE | 2018-12-09 05:25 | NUR ---
# 14 FR Urinary catheter inserted utilizing sterile technique. Immediate return of 100 ml of clear, yellow urine noted. Urine sample collected and sent to lab. Pt tolerated procedure well.
[2018-12-09 05:46] LABS: PROTHROMBIN TIME 10.5 secs (10.8-13.4)
[2018-12-09 05:49] LABS: BARBITURATE, URINE NEG. ng/ml (NEG <=200); BENZODIAZEPINE, URINE NEG. ng/mL (NEG <=200); CANNABINOID, URINE NEG. ng/mL (NEG <=50); COCAINE, URINE NEG. ng/mL (NEG <=300); OPIATE, URINE NEG. ng/mL (NEG <=2000); PHENCYCLIDINE SCREEN,URINE NEG. ng/mL (NEG <=25)
[2018-12-09] MEDS ORDERED: HYDROcodone/APAP 7.5/325 MG 1 TAB PO PRN (05:50)
[2018-12-09] MEDS ORDERED: ONDANSETRON 4 MG/2 ML VIAL IVP PRN (05:50)
[2018-12-09] MEDS ORDERED: ACETAMINOPHEN 325 MG TAB PO PRN (05:50)
[2018-12-09] MEDS ORDERED: NACL 0.9% 1,000 ML IV SCH (05:50)
[2018-12-09] MEDS ORDERED: ALBUTEROL SULFATE/IPRATROPIU 3 ML SOL IH PRN (05:50)
[2018-12-09 05:54] LABS: APPEARANCE,URINE CLEAR (CLEAR); BILIRUBIN,URINE NEGATIVE (NEGATIVE); BLOOD, URINE 1+ (NEGATIVE); COLOR,URINE YELLOW (YELLOW); LEUKOCYTE ESTERASE ,URINE NEGATIVE (NEGATIVE); NITRITE, URINE NEGATIVE (NEGATIVE); UGLUCOSE NEGATIVE (NEGATIVE)
[2018-12-09] MEDS ORDERED: ACETAMINOPHEN EXTRA STRENGTH 500 MG TAB PO ONE (05:55)
[2018-12-09] MEDS ORDERED: ASPIRIN 325 MG TAB PO ONE (05:55)
[2018-12-09 06:00] LABS: BASOPHILS % (AUTO) 0.1 % (0.0-2.0); HEMATOCRIT 38.6 % (36-48); HEMOGLOBIN 12.3 g/dL (12.0-16.0); LYMPHOCYTES # (AUTO) 0.6 K/uL (2.5-16.5); LYMPHOCYTES % (AUTO) 5.3 % (20.5-51.1); MEAN CORPUSCULAR HEMOGLOBIN 29 pg (27-31); MEAN CORPUSCULAR HGB CONC 32 g/dL (33-37); MEAN CORPUSCULAR VOLUME 89.8 fL (80-94); MONOCYTES # (AUTO) 0.3 K/uL (0.8-1.0); MONOCYTES % (AUTO) 2.4 % (1.7-9.3); NEUTROPHILS # (AUTO) 9.7 K/uL (1.8-7.7); NEUTROPHILS % (AUTO) 92.2 % (42.2-75.2); PLATELET COUNT (AUTO) 297 K/uL (140-450); RED CELL DISTRIBUTION WIDTH 14.6 % (11.6-13.7); WHITE BLOOD COUNT (AUTO) 10.5 K/uL (4.8-10.8)
[2018-12-09] MEDS ORDERED: ALBUTEROL SULFATE/IPRATROPIU 3 ML SOL IH SCH (06:00)
[2018-12-09 06:02] LABS: RBC,URINE 0-5 (RARE) /HPF (0-5); WBC,URINE 0-5 (RARE) /HPF (0-5)
[2018-12-09] MEDS ORDERED: NITROGLYCERIN 50 MG/D5W PREMIX 250 ML IV ONE (06:05)
--- NOTE | 2018-12-09 07:00 | NUR ---
RN AT BEDSIDE.
--- NOTE | 2018-12-09 07:14 | NUR ---
PT TAKEN TO ICU BY RN KEYSHA, ORTHOTIC/PROSTHETIC CLINICIAN ALEJANDRO AND ERIN, AND RT STAFF
--- NOTE | 2018-12-09 07:25 | NUR ---
Patient will be admitted to care of Dr. Domingo. Admited to ICU. Will go to room 8. Belongings list completed. Report to Malissa GRAHAM.
--- NOTE | 2018-12-09 07:25 | NUR ---
RECEIVED PT FROM ER VIA [employer]. NOTED ON BIPAP. PT A/O X3. ABLE TO MAKE NEEDS KNOWN. TACHYCARDIC. SKIN DRY AND WARM TO TOUCH. LUNGS WHEEZES. PERIPHERAL LINE NOTED ON RIGHT HAND 20G. INTACT LINE. NITROGLYCERINE RUNNING AT 20 MCG/MIN. LEFT AC 20G. NS RUNNING AT 10 ML/HR. ABDOMEN SOFT, ROUND AND NON-TENDER. ACTIVE BOWEL SOUND. SKIN INTACT. KEPT HOB ELEVATED. BED IN LOW POSITION LOCKED. WILL CONTINUE TO MONITOR.
--- NOTE | 2018-12-09 07:40 | NUR ---
MRSA nares taken to the lab.
--- NOTE | 2018-12-09 07:52 | NUR ---
PT ON BIPAP 14/6, R 14 FIO2 30%. PT IS TACHYPNEIC AND TACHYCARDIC AT THIS TIME. PT TOLERATING BIPAP SETTINGS WELL. BIPAP IS PLUGGED INTO A RED OUTLET WITH ALARMS ON AND FUNCTIONING. PROTECTA GEL PLACED UNDER MASK FOR SKIN PROTECTION. WILL CONTINUE TO MONITOR.
--- NOTE | 2018-12-09 08:14 | NUR ---
DR. BLACKBURN AND RESIDENT GROUP IN TO SEE PT. UPDATE PT CONDITION. WILL F/U ORDERS.
[2018-12-09] MEDS: PANTOPRAZOLE 40 MG INJ VIAL IVP SCH (09:14)
[2018-12-09] MEDS: DOCUSATE SODIUM 100 MG GELCAP PO SCH ×2 (09:14→20:53)
[2018-12-09] MEDS: OSELTAMIVIR PHOSPHATE 75 MG CAP PO SCH ×2 (09:14→20:53)
[2018-12-09 09:16] LABS: FREE T4 (FREE THYROXINE) 0.9 ng/dL (0.76-1.46); PHOSPHORUS 3.9 mg/dL (2.5-4.9); THYROID STIMULATING HORMONE 0.66 uIU/mL (0.34-3.74)
[2018-12-09] MEDS ORDERED: NITROGLYCERIN 50 MG/D5W PREMIX 250 ML IV PRN (09:20)
[2018-12-09] MEDS: DEXT 5% / NACL 0.9% 500 ML IV SCH (09:27)
[2018-12-09] MEDS ORDERED: CARVEDILOL 12.5 MG TAB PO SCH (09:32)
--- NOTE | 2018-12-09 10:00 | NUR ---
NO SOB OR ACUTE RESPIRATORY DISTRESS NOTED. DENIES PAIN. CONTINUE ON BIPAP. WILL CONTINUE TO MONITOR.
[2018-12-09] MEDS ORDERED: PROBIOTIC SCREEN 1 EA MISC MC PRN (12:00)
[2018-12-09] MEDS ORDERED: DEXTROSE 50% 50 ML SYR IVP PRN (12:15)
[2018-12-09] MEDS ORDERED: hydrALAZINE 20 MG/ML VIAL IVP PRN (12:25)
[2018-12-09] MEDS ORDERED: FUROSEMIDE 40 MG/4 ML VIAL IVP SCH (12:27)
[2018-12-09] MEDS ORDERED: LISINOPRIL 20 MG TAB PO SCH (12:29)
[2018-12-09] MEDS ORDERED: amLODIPine 5 MG TAB PO SCH (12:33)
--- NOTE | 2018-12-09 12:42 | NUR ---
BP 105/68. DR. COX AWARE. SCHEDULED ANTIHYPERTENSIVE MEDS NOT GIVEN PER DR. COX.
[2018-12-09] MEDS ORDERED: hydrALAZINE 25 MG TAB PO SCH (13:00)
--- NOTE | 2018-12-09 13:08 | NUR ---
NIETO CATHETER INSERTED PER ORDER.
--- NOTE | 2018-12-09 14:00 | NUR ---
SR ON MONITOR. BP 118/83. NO SOB NOTED. CONTINUE ON BIPAP. NO CHANGE IN LOC. DENIES PAIN. AFEBRILE.
--- NOTE | 2018-12-09 16:00 | NUR ---
AFEBRILE. NO SOB NOTED. BP 121/79. DENIES ANY PAIN OR DISCOMFORT.
[2018-12-09] MEDS: ALBUTEROL SULFATE/IPRATROPIU 3 ML SOL IH SCH ×2 (16:44→19:30)
[2018-12-09] MEDS: BLOOD GLUCOSE MONITORING 1 DEV DEV FS SCH ×2 (17:11→20:53)
[2018-12-09] MEDS: FUROSEMIDE 40 MG/4 ML VIAL IVP SCH (17:13)
--- NOTE | 2018-12-09 18:00 | NUR ---
ON O2 VIA NC AT 3 LTR/MIN. TOLERATING WELL. NO SOB OR ACUTE DISTRESS NOTED. HOB ELEVATED. BED IN LOW POSITION LOCKED. DENIES ANY PAIN.
--- NOTE | 2018-12-09 19:27 | NUR ---
REPORT GIVEN TO CREDENTIALING COORDINATOR RN FOR CONTINUITY OF CARE.
--- NOTE | 2018-12-09 19:30 | NUR ---
RECEIVED BEDSIDE REPORT FROM MORNING SHIFT RNMIGDALIA, FOR CONTINUITY OF CARE. PT AWAKE, ALERT, ABLE TO MAKE NEEDS KNOWN. AFEBRILE TEMP 97.5. [place] SPEAKING. ON DROPLET PRECAUTIONS. NIETO CATH IN PLACE. NO BM AT THIS TIME. BOWEL SOUND ACTIVE X4, LUNG SOUND CLEAR/DIMINISHED ON UPPER/LOWER BASES. D5 NS INFSING TO RIGHT HAND PIV 20 GAUGE AT 10CC/HR. LEFT A/C 20 GAUGE PIV NOTED. PT DENIES PAIN/NAUSEA AT THIS TIME. ABLE TO REPOSITION SELF IN BED. Addendum: 12/10/18 at 2205 by Lavern Hoffman RN RECEIVED PT ON 4 LPM NASAL CANNULA. SKIN INTACT, ABLE TO REPOSITION SELF IN BED.
[2018-12-09] MEDS: CARVEDILOL 12.5 MG TAB PO SCH (20:54)
--- NOTE | 2018-12-09 22:55 | NUR ---
PT ABLE TO ASSIST IN REPOSITIONING PATIENT IN BED, YE PAIN/NAUSEA AT THIS TIME. HOB ELEVATED ABOVE 30 DEG.
[2018-12-10] VITALS (11 sets, daily range): BP systolic 97–141; BP diastolic 54–90
--- NOTE | 2018-12-10 00:45 | NUR ---
DR. ORTA IN TO SEE PATIENT, UPDATED ON CONDITIONS, NO NEW ORDER AT THIS TIME.
--- NOTE | 2018-12-10 03:41 | NUR ---
PT SLEEPING QUIETLY AT BEDSIDE, APPERS TO BE WITHOUT DISTRESS., RR=33, BP 111/61, HR=95. SATING AT 96%.
--- NOTE | 2018-12-10 03:53 | NUR ---
CALLED DR. ORTA, UPDATED PT HAD COMPLAINTS OF PAIN IN CHEST AND ABDOMEN, RATED 8-9/10. WILL UPDATE ORDERS.
[2018-12-10] MEDS ORDERED: MORPHINE SULFATE 4 MG/ML SYR IVP PRN (03:55)
--- NOTE | 2018-12-10 04:15 | NUR ---
JJ MACARIO, AT BEDSIDE TO COLLECT EKG
[2018-12-10] MEDS ORDERED: hePARIN / DEXT 5% PREMIX 250 ML IV SCH ×2 (05:10→07:40)
[2018-12-10] MEDS ORDERED: HEPARIN PER PHARMACY MC PRN (05:10)
--- NOTE | 2018-12-10 05:21 | NUR ---
TO START PT ON HEPARIN DRIP, PER DR. ORTA, UPDATED ON ELEVATED TROPONIN RESULT.
--- NOTE | 2018-12-10 05:43 | NUR ---
HEPARIN BOLUS GIVEN OF 4000 UNITS, STARTED ON HEPARIN DRIP OF 1400 UNITS/HR.
[2018-12-10 06:10] LABS: BASOPHILS % (AUTO) 0.2 % (0.0-2.0); EOSINOPHILS % (AUTO) 0.1 % (0.0-4.0); HEMATOCRIT 36.3 % (36-48); HEMOGLOBIN 11.5 g/dL (12.0-16.0); LYMPHOCYTES # (AUTO) 0.5 K/uL (2.5-16.5); LYMPHOCYTES % (AUTO) 6.2 % (20.5-51.1); MEAN CORPUSCULAR HEMOGLOBIN 28 pg (27-31); MEAN CORPUSCULAR HGB CONC 32 g/dL (33-37); MEAN CORPUSCULAR VOLUME 89.6 fL (80-94); MONOCYTES # (AUTO) 0.5 K/uL (0.8-1.0); MONOCYTES % (AUTO) 6.5 % (1.7-9.3); NEUTROPHILS # (AUTO) 6.8 K/uL (1.8-7.7); PLATELET COUNT (AUTO) 257 K/uL (140-450); RED BLOOD CELL COUNT(AUTO) 4.05 MIL/uL (4.20-5.40); RED CELL DISTRIBUTION WIDTH 14.7 % (11.6-13.7); WHITE BLOOD COUNT (AUTO) 7.8 K/uL (4.8-10.8)
[2018-12-10 06:25] LABS: ANION GAP 10.7 (8-16); CARBON DIOXIDE 34.1 mmol/L (21-32); CREATININE 1.1 mg/dL (0.6-1.3); POTASSIUM 3.8 mmol/L (3.5-5.1)
[2018-12-10 06:28] LABS: CHOL/HDL RATIO 2.2 (1-4.5); MAGNESIUM 1.8 mg/dL (1.8-2.4)
[2018-12-10] MEDS: ALBUTEROL SULFATE/IPRATROPIU 3 ML SOL IH SCH ×3 (06:48→19:00)
--- NOTE | 2018-12-10 07:15 | NUR ---
PROVIDED BEDSIDE REPORT TO MORNING SHIFT RNELBA, FOR CONTINUITY OF CARE.
--- NOTE | 2018-12-10 07:16 | NUR ---
RECEIVED REPORT AT BEDSIDE FROM CT MRI TECHNOLOGIST RN, PT IS AAOX4, WELSH SPEAKING ONLY, ABLE TO FOLLOW COMMANDS AND MAKE NEEDS KNOWN, VSS, DENIES PAIN, CONGESTED BREATHING WITH EXCESSIVE MUSCLE USE NOTED, WHEEZES LUNG SOUNDS BREANNE, RT NOTIFIED, ST ON SENIOR COMPLIANCE ANALYST, SOFT ABDOMEN WITH ACTIVE BOWEL SOUNDS, ON CCHO DIET, F/C IN PLACE WITH CLEAR YELLOW URINE VIA GRAVITY, SKIN IS INTACT, WARM AND DRY TO TOUCH, SLIGHT WEAKNESS TO EXTREMITIES, PERIPHERAL LINE TO LEFT AC, 20GA, PATENT AND SL, IV TO RIGHT HAND, 20GA, RUNNING HEPARIN AT 1400 UNITS/HR. HOB ELEVATED 30 DEGREES, SAFETY MEASURES IN PLACE, CALL LIGHT WITHIN REACH, WILL CONTINUE TO MONITOR.
[2018-12-10] MEDS: BLOOD GLUCOSE MONITORING 1 DEV DEV FS SCH ×4 (07:42→20:28)
[2018-12-10] MEDS: methylPREDNISolone SS 125 MG/2 ML VIAL IVP SCH ×3 (07:45→20:11)
--- NOTE | 2018-12-10 07:45 | NUR ---
CALLED PHARMACY UPDATED THAT 6AM SOLU-MEDROL WAS NOT AVAILABLE IN THE [facility] AND THAT IT WOULD BE GIVEN LATE, PHARMACY STATED OKAY TO OVERRIDE SOLU MEDROL IN [facility] AND TO GIVE. WILL CARRY OUT.
[2018-12-10] MEDS ORDERED: methylPREDNISolone SS 40 MG/ML VIAL ONE (08:07)
--- NOTE | 2018-12-10 08:23 | NUR ---
PATIENT HAS BEEN SCREENED AND CATEGORIZED MODERATE NUTRITION RISK. PATIENT WILL BE SEEN WITHIN 3-5 DAYS OF ADMISSION. 12/11/18R[address]
--- NOTE | 2018-12-10 08:30 | NUR ---
DR. SHAH CAME IN TO SEE PT AT BEDSIDE, UPDATED PT'S CONDITION, WILL FOLLOW UP WITH NEW ORDERS.
[2018-12-10] MEDS: ATORVASTATIN 20 MG TAB PO SCH (08:33)
[2018-12-10] MEDS: FUROSEMIDE 40 MG/4 ML VIAL IVP SCH ×2 (08:33→16:45)
[2018-12-10] MEDS: PANTOPRAZOLE 40 MG INJ VIAL IVP SCH (08:33)
[2018-12-10] MEDS: CARVEDILOL 12.5 MG TAB PO SCH ×2 (08:33→20:12)
[2018-12-10] MEDS: ASPIRIN 81 MG TAB.CHEW PO SCH (08:34)
[2018-12-10] MEDS: OSELTAMIVIR PHOSPHATE 75 MG CAP PO SCH ×2 (08:35→20:30)
[2018-12-10] MEDS: DOCUSATE SODIUM 100 MG GELCAP PO SCH ×2 (08:35→20:11)
[2018-12-10] MEDS: DEXT 5% / NACL 0.9% 500 ML IV SCH (08:36)
[2018-12-10] MEDS: ALBUTEROL SULFATE/IPRATROPIU 3 ML SOL IH PRN (08:57)
[2018-12-10] MEDS ORDERED: amLODIPine 5 MG TAB PO SCH (09:00)
[2018-12-10] MEDS ORDERED: LISINOPRIL 20 MG TAB PO SCH (09:00)
[2018-12-10] MEDS: LISINOPRIL 10 MG TAB PO SCH (09:00)
--- NOTE | 2018-12-10 09:00 | NUR ---
SCHEDULED MEDICATION GIVEN, PT ATE 100% OF BREAKFAST. MEDICATION INDICATION AND SIDE EFFECTS EXPLAINED TO PT, PT VERBALIZED UNDERSTANDING.
[2018-12-10] MEDS: LORazepam 2 MG/ML VIAL IVP PRN (09:43)
--- NOTE | 2018-12-10 10:00 | NUR ---
NO S/S OF DISTRESS, PT IS MORE CLAM, RESTING IN BED, VSS, DENIES PAIN, ABLE TO REPOSITION SELF AT THIS TIME.
--- NOTE | 2018-12-10 12:00 | NUR ---
PT IS RESTING IN BED, NO S/S OF DISTRESS, VSS, DENIES PAIN. ABLE TO ATE 100% PF LUNCH.
[2018-12-10] MEDS: INSULIN LISPRO SLIDING SCALE 100 UNITS/ML VIAL SUBQ PRN ×3 (12:01→21:22)
[2018-12-10 13:23] LABS: PROTHROMBIN TIME 10.4 secs (10.8-13.4)
--- NOTE | 2018-12-10 14:00 | NUR ---
PT IS ASLEEP IN BED, REMOVED NC BY HERSELF, O2 SAT 89%, REEDUCATED PT ON O2 USE, PT VERBALIZED UNDERSTANDING.
--- NOTE | 2018-12-10 16:00 | NUR ---
PT IS ASLEEP IN BED, NO S/S OF DISTRESS, VSS, PM CARE AND F/C CARE PROVIDED.
--- NOTE | 2018-12-10 18:00 | NUR ---
NO S/S OF DISTRESS, VSS, DENIES PAIN, ATE 100% DINNER.
--- NOTE | 2018-12-10 19:15 | NUR ---
REPORT GIVEN TO SKID MACHINE OPERATOR NURSE FOR CONTINUE OF CARE, PT IS IN STABLE CONDITION AT THIS TIME.
--- NOTE | 2018-12-10 19:37 | NUR ---
RECEIVED BEDSIDE REPORT FROM MORNING SHIFT RNELBA, FOR CONTINUITY OF CARE. PT IS AWAKE, LETHARGIC. HR 94, BP 100/63, SATING 96-97%, RR 18-20. AFEBRILE, TEMP 96.9, TEMPORAL SCAN. ON 6LPM NASAL CANNULA. LUNG SOUNDS CLEAR/DIMINISHED ON UPPER/LOWER BILATERAL LOBES. SR ON CERTIFIED SHORTHAND REPORTER.HEPARIN INFUSING TO RIGHT FA PIV AT 500 UNITS/HR. NIETO CATHETER IN PLACE. SKIN IS NORMAL IN COLOR, COOL TO TOUCH, PT STATED SHE IS A BIT COLD "HACE FRIO". ADDITIONAL BLANKET WILL BE PROVIDED TO PATIENT. BOWEL SOUNDS ACTIVE X4. NIETO IN PLACE. PT DENIES NAUSE. RATED ABDOMINAL PAIN TO BE MILD 4/10 WITH RESPIRATIONS. HOB ELEVATED TO 45 DEG, SIDE RAILS UP X4, FALL RISK, AND DROPLET PRECAUTIONS MAINTAINED.
--- NOTE | 2018-12-10 20:15 | NUR ---
PT REFUSED HHNTX, SHE SAID THAT MAKE HER FEEL NAUSEA
--- NOTE | 2018-12-10 21:25 | NUR ---
JAMES FROM, LAB WAS IN TO SEE PATIENT. BED BATH GIVEN TO PATIENT, FRESH LINENS PROVIDED. PT GIVEN WITH HOT TEA TO DRINK, NO SUGAR ADDED. Addendum: 12/11/18 at 0439 by Lavern Hoffman RN PT HAD SMALL BM (SMEAR).
--- NOTE | 2018-12-10 22:05 | NUR ---
PT SLEEPING QUIETLY AT BEDSIDE, EASY TO AROUSE. HOB ELEVATED ABOVE 30 DEG, LEG ELEVATED WITH PILLOW. ABLE TO REPOSITION SELF IN BED.
[2018-12-11] VITALS (9 sets, daily range): BP systolic 78–128; BP diastolic 45–74
--- NOTE | 2018-12-11 01:53 | NUR ---
CALLED DR. ARIAS, UPDATED ON RECENT LOW BP'S. CALL DOCTOR IF MAP GOES BELOW 60.
[2018-12-11] MEDS: ALBUTEROL SULFATE/IPRATROPIU 3 ML SOL IH PRN (02:55)
--- NOTE | 2018-12-11 02:59 | NUR ---
PT COMPLAINTS OF PAIN WHEN COUGHING/CHEST, RT BONITA CALLED AT BEDSIDE ADMINISTERING BREATHING TREATMENT.
--- NOTE | 2018-12-11 03:03 | NUR ---
CALLED DR. ARIAS UPDATED ON PT CONDITION AND RT AND BEDSIDE. TO PLACE ADDITIONAL ORDER OF SOLU-MEDROL .
[2018-12-11] MEDS ORDERED: methylPREDNISolone SS 40 MG/ML VIAL IVP ONE (03:05)
--- NOTE | 2018-12-11 03:06 | NUR ---
CALLED [facility], SPOKE WITH DEDRA TO VERIFY MEDICATION.
[2018-12-11] MEDS ORDERED: methylPREDNISolone SS 40 MG/ML VIAL ONE (03:18)
--- NOTE | 2018-12-11 04:00 | NUR ---
PT IS SLEEPING, EASY TO AROUSE. APPEARS WITHOUT DISTRESS. AFEBRILE W/ TEMP 97.0, BP 92/59 AND VSS. ABLE TO REPOSITION SELF IN BED. BLANKET GIVEN TO PATIENT AND HOT TEA.
--- NOTE | 2018-12-11 04:36 | NUR ---
OLGA FROM LAB AT BEDSIDE TO DRAW BLOOD SAMPLES.
--- NOTE | 2018-12-11 05:16 | NUR ---
PTT REPORTED 51.2, NO CHANGE. HEPARIN DRIP REMAINS AT 500 UNITS/HR. PT URINE OUTPUT OF 1300ML, CLEAR AND LIGHT IRIS IN COLOR. NIETO CATH CARE PROVIDED.
[2018-12-11] MEDS: methylPREDNISolone SS 40 MG/ML VIAL IVP SCH ×3 (05:31→21:36)
--- NOTE | 2018-12-11 05:31 | NUR ---
SPOKE WITH RUBÉN FROM [facility] REGARDING 6AM SOLU-MEDROL, STATED TO FOLLOW-UP WITH DR. ARIAS TO WHETHER HE WANTS TO GIVE ADDITIONAL/SCHEDULED MED. CALLED DR. ARIAS, UPDATED ON PT CONDITION, STATED OKAY TO HOLD MED AT THIS TIME. WILL CARRY OUT.
[2018-12-11 05:47] LABS: ANION GAP 7.9 (8-16); CARBON DIOXIDE 35.3 mmol/L (21-32); CREATININE 1.2 mg/dL (0.6-1.3); POTASSIUM 4.2 mmol/L (3.5-5.1)
[2018-12-11 05:53] LABS: PHOSPHORUS 5.6 mg/dL (2.5-4.9)
--- NOTE | 2018-12-11 06:02 | NUR ---
PT ABLE TO BRUSH TEETH AND REPOSITIONS HERSELF INDEPENDENTLY, BUT STILL APPEARS LETHARGIC WITH GENERALIZED WEAKNESS. UNCERTAIN IF PATIENT IS INCONTINENT OF BM, PT HAD SMALL SMEAR ON DILLON PAD AT START OF SHIFT AND SMALL SMEAR AT THIS TIME AND DILLON PAD CHANGED AGAIN. PT YE NAUSEA AT THIS TIME.
[2018-12-11 06:04] LABS: HEMATOCRIT 39.3 % (36-48); HEMOGLOBIN 12.4 g/dL (12.0-16.0); MEAN CORPUSCULAR HEMOGLOBIN 29 pg (27-31); MEAN CORPUSCULAR HGB CONC 32 g/dL (33-37); MEAN CORPUSCULAR VOLUME 90.5 fL (80-94); PLATELET COUNT (AUTO) 282 K/uL (140-450); RED BLOOD CELL COUNT(AUTO) 4.34 MIL/uL (4.20-5.40); RED CELL DISTRIBUTION WIDTH 14.6 % (11.6-13.7); WHITE BLOOD COUNT (AUTO) 9.9 K/uL (4.8-10.8)
--- NOTE | 2018-12-11 06:16 | NUR ---
DR. CAMARGO IN TO SEE PT, UPDATED ON CONDITIONS.
[2018-12-11] MEDS: ALBUTEROL SULFATE/IPRATROPIU 3 ML SOL IH SCH ×3 (06:45→19:42)
--- NOTE | 2018-12-11 06:45 | NUR ---
BLOOD SUGAR CHECKED, 171.
--- NOTE | 2018-12-11 06:45 | NUR ---
RT AT BEDSIDE TO SEE PATIENT.
--- NOTE | 2018-12-11 07:00 | NUR ---
DECREASED FIO2 FROM 6L N/C TO 3L N/C SPO2 98
[2018-12-11] MEDS ORDERED: ALBUTEROL SULFATE/IPRATROPIU 3 ML SOL IH PRN (07:08)
[2018-12-11] MEDS ORDERED: MORPHINE SULFATE 2 MG/ML SYR IVP PRN (07:09)
--- NOTE | 2018-12-11 07:16 | NUR ---
PROVIDED BEDSIDE REPORT TO MORNING SHIFT RNRYAN, FOR CONTINUITY OF CARE.
[2018-12-11] MEDS: BLOOD GLUCOSE MONITORING 1 DEV DEV FS SCH ×4 (07:17→20:53)
--- NOTE | 2018-12-11 07:17 | NUR ---
RECEIVED REPORT FROM KRYSTLE GRAHAM
[2018-12-11] MEDS: INSULIN LISPRO SLIDING SCALE 100 UNITS/ML VIAL SUBQ PRN ×3 (07:21→16:29)
--- NOTE | 2018-12-11 08:00 | NUR ---
PATIENT ALERT ORIENTED, SEMI FOWLERS POSITION IN BED, ON NASAL CANNULA O2 4L/MIN., NO SIGNS OF DISTRESS, SINUS RHYTHM ON MONITOR, BREAKFAST TRAY SERVED AND EATING INDEPENDENTLY AND TOLERATING DIET. WITH NIETO CATHETER WITH CLEAR YELLOW URINE NOTED IN THE UROBAG. PATIENT WITH PERIPHERAL LINES GAUGE 20 AT THE RIGH HAND WITH HEPARIN INFUSING 500 UNITS/HR., GAUGE 20 LEFT ANTECUBITAL, BOTH SITES ASYMPTOMATIC. SKIN INTACT. CALL KELLY WITHIN REACH
[2018-12-11] MEDS: PANTOPRAZOLE 40 MG INJ VIAL IVP SCH (08:24)
[2018-12-11] MEDS: FUROSEMIDE 40 MG/4 ML VIAL IVP SCH ×2 (08:24→16:28)
[2018-12-11] MEDS: ATORVASTATIN 20 MG TAB PO SCH (08:25)
[2018-12-11] MEDS: ASPIRIN 81 MG TAB.CHEW PO SCH (08:25)
[2018-12-11] MEDS: CARVEDILOL 12.5 MG TAB PO SCH ×2 (08:26→21:37)
[2018-12-11] MEDS: DOCUSATE SODIUM 100 MG GELCAP PO SCH ×2 (08:26→21:37)
[2018-12-11] MEDS: OSELTAMIVIR PHOSPHATE 75 MG CAP PO SCH ×2 (08:27→21:36)
[2018-12-11] MEDS: LISINOPRIL 10 MG TAB PO SCH (09:00)
[2018-12-11 09:01] LABS: LYMPHOCYTES % (MANUAL) 3 % (20-46); MONOCYTES % (MANUAL) 7 % (5-12)
[2018-12-11] MEDS ORDERED: CALCIUM ACETATE 667 MG TAB PO SCH (10:00)
--- NOTE | 2018-12-11 11:45 | NUR ---
DR. RODRIGUEZ ROUNDED AND ORDERED TO DISCONTINUE HEPARIN DRIP
--- NOTE | 2018-12-11 12:30 | NUR ---
LUNCH TRAY WAS SERVED PATIENT EATING INDEPENDENTLY WITH GOOD APPETITE, HEAD OF BED UP 90 DEGREES
--- NOTE | 2018-12-11 15:00 | NUR ---
DR. SHAH HERE FOR ROUNDS. PATIENT CAN BE DOWNGRADED TO TELEMETRY
[2018-12-11] MEDS ORDERED: BENZONATATE 100 MG CAPLF PO PRN (15:20)
--- NOTE | 2018-12-11 16:50 | NUR ---
PM CARE, ORAL CARE, CATHETER CARE RENDERED. PATIENT SELF REPOSITIONING. PATIENT TOLERATED
--- NOTE | 2018-12-11 18:00 | NUR ---
PATIENT ATE 100% OF HER DINNER INDEPENDENTLY
--- NOTE | 2018-12-11 19:14 | NUR ---
REPORT GIVEN TO ICU NIGHT RN
--- NOTE | 2018-12-11 20:00 | NUR ---
RECEIVED REPORT FROM MORNING SHIFT SANTOS DAVIS, PT IS SITTING UP IN BED, VSS, SATING 98-90%, ON NASAL CANNULA 4 LPM. PT WAS UP AT BEDSIDE AND AMBULATED TO BATHROOM, HAD BOWEL MOVEMENT. SKIN IS INTACT, MILD WEAKNESS. NO IVS INFUSING AT THIS TIME, PT HAS LEFT AC 20 GAUGE, AND R HAND 20 GAUGE PIV.
--- NOTE | 2018-12-11 20:30 | NUR ---
RECEIVED REPORT FROM ICU NURSE BONG-RN OVER THE PHONE. PT ARRIVED TO UNIT VIA WHEELCHAIR BY ICU NURSE NIRALI-SANTOS. PT RESTING IN BED, AOX3/4- MOROCCAN SPEAKING, ON 4L/NC, WITH RIGHT HAND #20G AND LEFT AC #20G- BOTH SL. NIETO CATHETER IN PLACE. DISCUSSED PLAN OF CARE AND PT VERBALIZED UNDERSTANDING. NO S/S OF RESPIRATORY DISTRESS OR DISCOMFORT NOTED AT THIS TIME. VITAL SIGNS TAKEN AND BLOOD GLUCOSE 137- NO INSULIN COVERAGE NEEDED. BED IN LOWEST POSITION, BED BREAKS ON, BOTH SIDE RAILS UP WITH BOTH FALL AND DROPLET PRECAUTIONS IN PLACE. BEDSIDE TABLE AND CALL LIGHT ARE WITHIN REACH. WILL CONTINUE TO MONITOR.
--- NOTE | 2018-12-11 21:37 | NUR ---
SCHEDULED MEDICATION GIVEN AND TOLERATED WELL. HEPARIN NOT GIVEN DUE TO APTT AT CRITICAL LAB VALUE OF 51.4. NO S/S OF RESPIRATORY DISTRESS OR DISCOMFORT NOTED AT THIS TIME. WILL CONTINUE TO MONITOR.
--- NOTE | 2018-12-11 23:00 | NUR ---
PT RESTING IN BED. NO S/S OF RESPIRATORY DISTRESS OR DISCOMFORT NOTED AT THIS TIME. WILL CONTINUE TO MONITOR.
[2018-12-12] VITALS: BP 106/64
--- NOTE | 2018-12-12 | NUR ---
VITAL SIGNS TAKEN AND TOLERATED WELL. NO S/S OF RESPIRATORY DISTRESS OR DISCOMFORT NOTED AT THIS TIME. WILL CONTINUE TO MONITOR.
--- NOTE | 2018-12-12 02:00 | NUR ---
PT FOUND WITHOUT 4L/NC WITH O2SAT 88%. EDUCATED PT ON KEEPING NASAL CANNULA ON AT ALL TIMES TO ASSIST WITH PROPER OXYGENATION. PT CONTINUES SLEEPING. NO S/S OF RESPIRATORY DISTRESS OR DISCOMFORT NOTED AT THIS TIME. WILL CONTINUE TO MONITOR.
[2018-12-12 04:00] VITALS: BP 113/74
--- NOTE | 2018-12-12 04:00 | NUR ---
VITAL SIGNS TAKEN AND TOLERATED WELL. PT NOT TRENT NASAL CANNULA 02SAT 88%. EDUCATED PT TO KEEP NASAL CANNULA ON TO ASSIST WITH OXYGENATION. NO S/S OF RESPIRATORY DISTRESS OR DISCOMFORT NOTED AT THIS TIME. WILL CONTINUE TO MONITOR.
--- NOTE | 2018-12-12 06:00 | NUR ---
BLOOD GLUCOSE 122- NO INSULIN COVERAGE NEEDED. NO S/S OF RESPIRATORY DISTRESS OR DISCOMFORT NOTED AT THIS TIME. WILL CONTINUE TO MONITOR.
[2018-12-12 06:22] LABS: BASOPHILS % (AUTO) 0.3 % (0.0-2.0); HEMATOCRIT 38.9 % (36-48); HEMOGLOBIN 12.4 g/dL (12.0-16.0); LYMPHOCYTES # (AUTO) 0.7 K/uL (2.5-16.5); MEAN CORPUSCULAR HEMOGLOBIN 28 pg (27-31); MEAN CORPUSCULAR HGB CONC 32 g/dL (33-37); MEAN CORPUSCULAR VOLUME 89.1 fL (80-94); MONOCYTES # (AUTO) 0.6 K/uL (0.8-1.0); MONOCYTES % (AUTO) 5.8 % (1.7-9.3); NEUTROPHILS # (AUTO) 9.6 K/uL (1.8-7.7); NEUTROPHILS % (AUTO) 87.9 % (42.2-75.2); PLATELET COUNT (AUTO) 275 K/uL (140-450); RED BLOOD CELL COUNT(AUTO) 4.37 MIL/uL (4.20-5.40); RED CELL DISTRIBUTION WIDTH 14.1 % (11.6-13.7); WHITE BLOOD COUNT (AUTO) 10.9 K/uL (4.8-10.8)
[2018-12-12 06:53] LABS: ANION GAP 1.4 (8-16); POTASSIUM 4.2 mmol/L (3.5-5.1)
[2018-12-12 06:56] LABS: CARBON DIOXIDE 43.8 mmol/L (21-32)
[2018-12-12 06:59] LABS: MAGNESIUM 2.1 mg/dL (1.8-2.4); PHOSPHORUS 3.2 mg/dL (2.5-4.9)
[2018-12-12] MEDS: ALBUTEROL SULFATE/IPRATROPIU 3 ML SOL IH SCH ×3 (06:59→19:55)
--- NOTE | 2018-12-12 07:29 | NUR ---
ENDORSED PT CARE TO DAY SHIFT NURSE RED NUR FOR CONTINUITY OF CARE.
--- NOTE | 2018-12-12 07:30 | NUR ---
RECEIVED BEDSIDE REPORT FROM SANTOS WALKER. PT STABLE, AWAKE, AND ALERT. NO SIGNS OF DISTRESS NOTED. DENIES PAIN OR SOB. ON 4L NC. NO REDNESS, SWELLING, OR INFLAMMATION NOTED ON IV SITE. BED IN LOWEST POSITION, BED ALARM ON. CALL KELLY WITHIN REACH. SAFETY MEASURES IN PLACE. PLAN OF CARE REVIEWED.
[2018-12-12] MEDS: BLOOD GLUCOSE MONITORING 1 DEV DEV FS SCH ×4 (07:42→21:56)
[2018-12-12 08:00] VITALS: BP 123/70
--- NOTE | 2018-12-12 08:20 | NUR ---
ABG DONE ROOM AIR POST PUNCTURE PLACED PATIENT BACK ON SUPPLEMENTAL OXYGEN AT 3 LPM VIA NC
--- NOTE | 2018-12-12 08:35 | NUR ---
CALLED [employer] [phone] TO REVIEW ABG SAMPLE REPORT "NO ANSWER" OIL PRODUCER TO ATTEMPT AT A LATER TIME PATIENT PRESENTING WITH NO SOB NOTED
[2018-12-12] MEDS: methylPREDNISolone SS 40 MG/ML VIAL IVP SCH (08:54)
[2018-12-12] MEDS: FUROSEMIDE 40 MG/4 ML VIAL IVP SCH ×2 (08:54→17:15)
[2018-12-12] MEDS: LISINOPRIL 5 MG TAB PO SCH (08:55)
[2018-12-12] MEDS: ASPIRIN 81 MG TAB.CHEW PO SCH (08:55)
[2018-12-12] MEDS: DOCUSATE SODIUM 100 MG GELCAP PO SCH ×2 (08:55→21:08)
[2018-12-12] MEDS: ATORVASTATIN 20 MG TAB PO SCH (08:55)
[2018-12-12] MEDS: CARVEDILOL 12.5 MG TAB PO SCH ×2 (08:56→21:08)
[2018-12-12] MEDS: OSELTAMIVIR PHOSPHATE 75 MG CAP PO SCH ×2 (08:56→21:08)
[2018-12-12] MEDS: PANTOPRAZOLE 40 MG INJ VIAL IVP SCH (09:08)
--- NOTE | 2018-12-12 09:25 | NUR ---
THROUGH [employer] TOUR GUIDE PATIENT REMOVING SUPPLEMENTAL OXYGEN DUE TO NASAL DRYNESS HISTORIOGRAPHY PROFESSOR ADDED HUMIDIFIER RED HALLMAN/RN AWARE
--- NOTE | 2018-12-12 09:27 | NUR ---
ADMINISTERED SCHEDULED MEDICATIONS. PT TOLERATED WELL. PT PUT BACK ON 3L O2 VIA NC.
--- NOTE | 2018-12-12 09:50 | NUR ---
REVIEWED ABG SAMPLE REPORT WITH DR DANY CAMARGO "NO NEW ORDERS"
--- NOTE | 2018-12-12 11:30 | NUR ---
PT AMBULATED TO THE BATHROOM WITH STEADY GAIT WITH STANDBY ASSIST.
[2018-12-12 12:00] VITALS: BP 103/62
--- NOTE | 2018-12-12 12:50 | NUR ---
ADMINISTERED 6 UNITS HUMALOG FOR BG 264.
[2018-12-12] MEDS: INSULIN LISPRO SLIDING SCALE 100 UNITS/ML VIAL SUBQ PRN ×2 (12:54→21:58)
--- NOTE | 2018-12-12 13:38 | NUR ---
NIETO CATHETER DRAINED, 1550 ML CLEAR YELLOW URINE OUTPUT.
--- NOTE | 2018-12-12 15:00 | NUR ---
PT STABLE, SLEEPING, BUT EASILY AROUSABLE. NO OTHER NEEDS AT THIS TIME.
[2018-12-12 16:00] VITALS: BP 104/74
--- NOTE | 2018-12-12 16:50 | NUR ---
USED [employer] TO SPEAK WITH PATIENT. FIRST LEVELER NUMBER [id number]. LINENS AND GOWN CHANGED, PT REPOSITIONED.
--- NOTE | 2018-12-12 17:15 | NUR ---
ADMINISTERED SCHEDULED MEDICATION, PT TOLERATED WELL. BG IS 106, NO COVERAGE NEEDED.
--- NOTE | 2018-12-12 17:45 | NUR ---
ASSISTED PT TO THE BATHROOM. PT AMBULATED WITH STEADY GAIT.
--- NOTE | 2018-12-12 19:10 | NUR ---
ENDORSED PT TO SANTOS CHILEL FOR CONTINUITY OF CARE. PT STABLE, AWAKE, AND ALERT.
--- NOTE | 2018-12-12 19:10 | NUR ---
REPORT GIVEN AT BEDSIDE BY RED HALLMAN, FOR CONTINUITY OF CARE, PT IN STABLE CONDITION.
[2018-12-12 20:00] VITALS: BP 121/78
--- NOTE | 2018-12-12 20:00 | NUR ---
PT IS A CROATIAN SPEAKING ONLY, SHE IS A FALLS RISKS AND HAS ALL FALLS PRECAUTIONS IN PLACE WELL DROPLET PRECAUTIONS FOR FLU A. PT APPEARS AGITATED BY HER NIETO CATHETER. SPOKE WITH PT USING MATERIALS HANDLING COORDINATOR PHONES, PT SAID THAT SHE DOESN'T WANT NIETO CATHETER AND WANTS IT OUT NOW. PT EXPLAINED THROUGH PAPER BAG INSPECTOR BLAS, THAT THE REASON FOR HER NIETO CATHETER WAS SO THAT THE DOCTORS CAN MEASURE THE URINE OUTPUT ACCURATELY. PT WAS ALSO EXPLAINED THAT SHE WILL NEED TO USE A HAT TO VOID IN SO THAT THE URINE CAN BE MEASURED. PT VERBALIZED UNDERSTANDING. PT SAID THAT SHE WS ABLE TO AMBULATE TO TOILET WITH NO PROBLEM. PT ASKED IF SHE WAS OK AND IF SHE HAD ANY PAIN OR ANY OTHER CONCERNS. PRIMARY NURSE SAID SHE WILL SPEAK TO HER MD REGARDING TAKING OUT THE NIETO CATHETER. PT VERBALIZED UNDERSTANDING.
--- NOTE | 2018-12-12 21:00 | NUR ---
SPOKE WITH PRIMARY COVERING MD DR. ORTA WHOM GAVE THE ORDER TO DISCONTINUE THE NIETO CATHETER. NIETO CATHETER WAS D/CD. BALLOON DEFLATED AND CATHETER WAS PULLED OUT INTACT. NIETO CATH HAD 1300MLS OF YELLOW CLEAR URINE. HAT WAS PROVIDED AT PT TOILET TO MEASURE OUT PUT. PT SAID SHE HAD A BM THIS MORNING. V/S FOLLOWS T 98.0 P 99 R 18 B/P 121/78 02 985 WITH 2LITERS VIA N/C. PT HAS DIMINSHED LUNG SOUNDS AND INTERMITTENT COUGHING, BUT RESPIRATIONS ARE EVEN AND UNLABORED. PT NEEDS PROMPTING TO REMIND HER TO KEEP IN SUPPLIMENTAL OXYGEN 02 VIA N/C IN PLACE.
[2018-12-13] VITALS: BP 122/72
--- NOTE | 2018-12-13 | NUR ---
PT IN BED SLEEPING BUT AROUSABLE TO NAME. NO S/S OF PAIN OR DISTRESS NOTED. PT AMBULATED TO TOILET AND BACK, SHE VOIDED 100MLS OF YELLOW SLIGHTLY CLOUDY URINE. V/S FOLLOWS T 98.8 P 90 R 20 B/P 122/72 02 92% WITH 3LITERS OF 02 VIA N/C.
--- NOTE | 2018-12-13 02:21 | NUR ---
PT IN BED REQUESTING SLEEPING MEDICATION. SPOKE WITH DR. ORTA WHO ORDERED AMBIEN.
[2018-12-13] MEDS ORDERED: ZOLPIDEM 5 MG TAB PO SCH (02:30)
--- NOTE | 2018-12-13 02:40 | NUR ---
PT GIVEN AMBIEN REQUESTED PILL FOR SLEEPING.
[2018-12-13 04:00] VITALS: BP 121/88
--- NOTE | 2018-12-13 05:00 | NUR ---
PT IN BED ASLEEP BUT AROUSABLE TO TOUCH. NO S/S OF PAIN OR DISTRESS NOTED. PT VOIDED ANOTHER 100MLS OF URINE. V/S FOLLOWS T 97.3 P 101 R 18 B/P 121/88 02 93 WITH 3LITERS OF SUPPLEMENTAL 02 F/S IS 90 NO COVERAGE NEEDED.
[2018-12-13] MEDS: BLOOD GLUCOSE MONITORING 1 DEV DEV FS SCH ×4 (06:27→20:58)
--- NOTE | 2018-12-13 07:15 | NUR ---
RECEIVED BEDSIDE REPORT FROM SANTOS CHILEL. PT STABLE, SLEEPING, BUT EASILY AROUSABLE. MOTHER AT THE BEDSIDE. NO SIGNS OF DISTRESS NOTED. ON 2L O2 VIA NC. NO REDNESS, SWELLING, OR INFLAMMATION NOTED ON IV SITE. BED IN LOWEST POSITION. CALL KELLY WITHIN REACH. SAFETY MEASURES IN PLACE. PLAN OF CARE REVIEWED. Addendum: 12/13/18 at 0741 by Danny Collado RN RECEIVED BEDSIDE REPORT FROM SANTOS CHILEL. PT STABLE, SLEEPING, BUT EASILY AROUSABLE. NO SIGNS OF DISTRESS NOTED. PT REFUSED O2 VIA NC. NO REDNESS, SWELLING, OR INFLAMMATION NOTED ON IV SITE. BED IN LOWEST POSITION. CALL KELLY WITHIN REACH. SAFETY MEASURES IN PLACE. PLAN OF CARE REVIEWED.
[2018-12-13 07:28] LABS: ANION GAP 5.3 (8-16); CREATININE 0.8 mg/dL (0.6-1.3); POTASSIUM 3.6 mmol/L (3.5-5.1)
[2018-12-13] MEDS: ALBUTEROL SULFATE/IPRATROPIU 3 ML SOL IH SCH ×3 (07:32→19:26)
[2018-12-13 07:42] LABS: MAGNESIUM 2.2 mg/dL (1.8-2.4); PHOSPHORUS 2.4 mg/dL (2.5-4.9)
--- NOTE | 2018-12-13 07:44 | NUR ---
RECEIVED PATIENT ON ROOM AIR, PULSE OX SAT 88%. PLACED PATIENT BACK ON 2L NC. PULSE OX SAT, 96%. SCHEDULED BREATHING TREATMENT ADMINISTERED. TOLERATED TX WELL, NO ADVERSE SIDE EFFECTS. PLACED PATIENT BACK ON 2L NC. NO RESPIRATORY DISTRESS NOTED. WILL CONTINUE TO MONITOR.
[2018-12-13 08:00] VITALS: BP 131/85
[2018-12-13 08:08] LABS: CARBON DIOXIDE 42.3 mmol/L (21-32); EOSINOPHILS # (AUTO) 0.1 K/uL (0-0.4); EOSINOPHILS % (AUTO) 0.5 % (0.0-4.0); HEMATOCRIT 40.9 % (36-48); LYMPHOCYTES # (AUTO) 1.8 K/uL (2.5-16.5); LYMPHOCYTES % (AUTO) 15.4 % (20.5-51.1); MEAN CORPUSCULAR HEMOGLOBIN 28 pg (27-31); MEAN CORPUSCULAR HGB CONC 32 g/dL (33-37); MEAN CORPUSCULAR VOLUME 88.4 fL (80-94); MONOCYTES # (AUTO) 1.7 K/uL (0.8-1.0); MONOCYTES % (AUTO) 13.9 % (1.7-9.3); NEUTROPHILS # (AUTO) 8.4 K/uL (1.8-7.7); NEUTROPHILS % (AUTO) 70.2 % (42.2-75.2); PLATELET COUNT (AUTO) 305 K/uL (140-450); RED BLOOD CELL COUNT(AUTO) 4.63 MIL/uL (4.20-5.40); RED CELL DISTRIBUTION WIDTH 14.2 % (11.6-13.7)
[2018-12-13] MEDS ORDERED: CARV12.52 PO (08:47)
[2018-12-13] MEDS ORDERED: LISI-424 PO (08:47)
[2018-12-13] MEDS: methylPREDNISolone SS 40 MG/ML VIAL IVP SCH (09:02)
[2018-12-13] MEDS: ASPIRIN 81 MG TAB.CHEW PO SCH (09:03)
[2018-12-13] MEDS: PANTOPRAZOLE 40 MG INJ VIAL IVP SCH (09:03)
[2018-12-13] MEDS: FUROSEMIDE 40 MG/4 ML VIAL IVP SCH (09:03)
[2018-12-13] MEDS: LISINOPRIL 5 MG TAB PO SCH (09:04)
[2018-12-13] MEDS: DOCUSATE SODIUM 100 MG GELCAP PO SCH ×2 (09:04→21:10)
[2018-12-13] MEDS: OSELTAMIVIR PHOSPHATE 75 MG CAP PO SCH ×2 (09:04→21:10)
[2018-12-13] MEDS: ATORVASTATIN 20 MG TAB PO SCH (09:04)
[2018-12-13] MEDS: CARVEDILOL 12.5 MG TAB PO SCH ×2 (09:05→21:10)
--- NOTE | 2018-12-13 09:22 | NUR ---
ADMINISTERED SCHEDULED MEDICATIONS, PT TOLERATED WELL. HEPARIN HELD FOR PTT 51.4
[2018-12-13] MEDS ORDERED: METH4TAB3 PO (10:01)
--- NOTE | 2018-12-13 10:20 | NUR ---
PATIENT PLACED ON BIPAP. PROTECTIVE SKIN GEL IN PLACE. WILL CONTINUE TO MONITOR.
[2018-12-13] MEDS ORDERED: SODIUM PHOS / POTASSIUM PHOS 1 PKT PDR PO SCH (11:00)
[2018-12-13] MEDS ORDERED: BENZONATATE 100 MG CAPLF PO SCH (11:00)
--- NOTE | 2018-12-13 11:00 | NUR ---
PATIENT NOT COMPLIANT WITH BIPAP MACHINE. PULLED TUBING OUT FROM MASK. PLACED PATIENT ON 2L NC. WILL CONTINUE TO MONITOR.
--- NOTE | 2018-12-13 11:15 | NUR ---
LINENS AND GOWN CHANGED. PT STABLE, AWAKE, AND ALERT.
[2018-12-13 12:00] VITALS: BP 106/72
--- NOTE | 2018-12-13 12:00 | NUR ---
ADMINISTERED SCHEDULED MEDICATIONS, PT TOLERATED WELL. NO OTHER NEEDS AT THIS TIME.
--- NOTE | 2018-12-13 13:10 | NUR ---
DR. CAMARGO AWARE OF PT'S NONCOMPLIANCE WITH BIPAP.
--- NOTE | 2018-12-13 13:47 | NUR ---
SCHEDULED BREATHING TREATMENT ADMINISTERED IN-LINE WITH BIPAP. SKIN PROTECTIVE BARRIER IN PLACE. SKIN INTACT. TOLERATED TREATMENT WELL, NO ADVERSE SIDE EFFECTS. NO RESPIRATORY DISTRESS NOTED AT THIS TIME. WILL CONTINUE TO MONITOR.
--- NOTE | 2018-12-13 14:42 | NUR ---
PATIENT REMOVED BIPAP AGAIN. CONTINUOUSLY REMOVES BIPAP AND NASAL CANNULA. PATIENT ON 2L NC. WILL CONTINUE TO MONITOR.
--- NOTE | 2018-12-13 15:20 | NUR ---
PT REFUSED BIPAP. PT EDUCATED, BENEFITS OF BIPAP EXPLAINED. WILL KEEP MONITORING PT.
--- NOTE | 2018-12-13 15:38 | NUR ---
12/13/18 RD INITIAL ASSESSMENT COMPLETED PLEASE REFER TO NUTRITION ASSESSMENT UNDER CARE ACTIVITY FOR ESTIMATED NUTRITIONAL NEEDS. 1. CONTINUE CCHO 60 GM DIET 2. RECOMMEND ADDING CARDIAC TO CURRENT DIET ORDER D/T PT WITH CARDIOMYOPATHY -NOTE PATIENT IS CONSUMING 100% OF ESTIAMTED KCAL AND PROTEIN NEEDS 3. PATIENT DECLINED DIET EDUCATION 4. RD TO FOLLOW-UP 3-5 DAYS, MODERATE RISK JUN WARE RD
--- NOTE | 2018-12-13 15:55 | NUR ---
ABG DRAWN WITHOUT INCIDENT. RESULTS REPORTED TO DR. GRANT. NO CHANGES TO BE MADE AT THIS TIME. WILL KEEP ENCOURAGING USE OF BIPAP AND SUPPLEMENTAL OXYGEN TO MAINTAIN ADEQUATE VENTILATION AND OXYGENATION. WILL CONTINUE TO MONITOR.
[2018-12-13 16:00] VITALS: BP 112/67
--- NOTE | 2018-12-13 17:20 | NUR ---
PT STABLE, SLEEPING, BUT EASILY AROUSABLE. NO OTHER NEEDS AT THIS TIME.
--- NOTE | 2018-12-13 19:15 | NUR ---
ENDORSED PT TO SANTOS AMARAL FOR CONTINUITY OF CARE. PT STABLE, AWAKE, AND ALERT.
--- NOTE | 2018-12-13 19:26 | NUR ---
PATIENT AMBULATING FROM BATHROOM OFF SUPPLEMENTAL OXYGEN SATURATION 90% POST HHN THERAPY PLACED PATIENT BACK ON SUPPLEMENTAL OXYGEN AT 2 LPM VIA NC
--- NOTE | 2018-12-13 19:27 | NUR ---
RECEIVED FROM AM SHIFT NURSE. PT CAME FROM BATHROOM. O2 SAT WENT DOWN TO 90% PLACED PT BACK TO 12 AT 2 LPM.
--- NOTE | 2018-12-13 19:28 | NUR ---
RECEIVED BEDSIDE REPORT AM SHIFT NURSE. PT WAS WITH RT AT BEDSIDE. EARLIER SHE CAME FROM BATHROOM AND O2 SAT WENT DOWN TO 90%. RT PLACED 02 AT 8 L NOW. NO RESPIRATORY DISTRESS AT THIS TIME. NO REDNESS, SWELLING, OR INFLAMMATION NOTED ON IV SITE. ON 2 IV'S R HAND ON LEFT AC, BOTH ON SL. NO COMPLAINTS OF PAIN.BED IN LOWEST POSITION, BED ALARM ON. CALL KELLY WITHIN REACH. SAFETY MEASURES IN PLACE. PLAN OF CARE REVIEWED.
[2018-12-13 20:00] VITALS: BP 103/66
--- NOTE | 2018-12-13 20:40 | NUR ---
REMINDED RT TO PUT PT ON BIPAP ORDERED BY PER RT WILL COME.
[2018-12-13] MEDS: LORazepam 2 MG/ML VIAL IVP PRN (21:09)
--- NOTE | 2018-12-13 21:10 | NUR ---
MUNIR/RN AT BEDSIDE FOR PM MEDS COAT BASTER TO ATTEMPT PLACEMENT OF BIPAP TO MASK AT A LATER TIME
--- NOTE | 2018-12-13 21:12 | NUR ---
PT AMBULATING. NON ADMINISTERED HEPARIN APTT HIGH AT 51.[address] ORTA AWARE
--- NOTE | 2018-12-13 21:17 | NUR ---
PT NON COMPLIANT TO BIPAP. ANXIOUS AND AMBULATING BACK AND FORTH TO THE RSSTROOM. TAKING OFF BIPAP. O2 SAT GOING DOWN.AT THIS TIME HER O2 SAT IS 99%.WILL ADMINISTER ATIVAN TONIGHT ORDERED.
--- NOTE | 2018-12-13 21:24 | NUR ---
PLACED PATIENT ON BIPAP PLUGGED INTO RED OUTLET TO FACIAL MASK SECURED WITH HEAD STRAP MASIMO RADICAL-7 CONTINUOS PULSE OXIMETER AT BEDSIDE ON AND FUNCTIONING WELL LOW SATURATION SET AT 90%
[2018-12-13 22:58] LABS: ALBUMIN 2.9 g/dL (3.4-5.0); ANION GAP 2.1 (8-16); CREATININE 0.8 mg/dL (0.6-1.3); POTASSIUM 4.2 mmol/L (3.5-5.1); TOTAL BILIRUBIN 0.3 mg/dL (0.0-1.0)
[2018-12-13 23:00] LABS: CARBON DIOXIDE 44.1 mmol/L (21-32)
--- NOTE | 2018-12-13 23:00 | NUR ---
CRITICAL RESULT OF 44.[address] MARIVEL WILLS.
--- NOTE | 2018-12-13 23:30 | NUR ---
RN AT BEDSIDE PATIENT REMOVED BIPAP TO MASK PLACED PATIENT BACK ON GOOD CHEST RISE TOLERATING WELL WITHOUT INCIDENT
[2018-12-14] VITALS: BP 108/65
--- NOTE | 2018-12-14 00:20 | NUR ---
PATIENT AGAIN HAS REMOVED BIPAP TO MASK PATIENT IS NON COMPLAINT WITH THERAPY PLACED ON HUMIDIFIED SUPPLEMENTAL OXYGEN AT 2 LPM VIA NC CALLED DR. ORTA [phone] AND IS AWARE NOTIFIED MUNIR/SANTOS
--- NOTE | 2018-12-14 00:30 | NUR ---
RT AND RN HAD TRIED TO CONVINCE PT PUT BACK THE BIPAP. EXPLAINED THE RISKS AND BENEFITS, BUT PT KEEPS ON PULLING OFF THE BIPAP MACHINE. PT IS NON COMPLIANT TO BIPAP. DR. MARIVEL WILLS.
[2018-12-14 04:00] VITALS: BP 110/68
--- NOTE | 2018-12-14 04:00 | NUR ---
PT HAD BIPAP ON AND OFF, AT 0400AM PT STILL HAD BIPAP ON. BUT AGAIN SHE TOOKED IT OFF. DR. ORTA AWARE. PT EXPLAINED. STILL NON-COMPLIANT. PUT HER AT 2 LPM O2 VIA NC. O2 AT 98% WITH O2 ON.
[2018-12-14] MEDS: BLOOD GLUCOSE MONITORING 1 DEV DEV FS SCH ×4 (07:04→21:26)
--- NOTE | 2018-12-14 07:09 | NUR ---
ENDORSED TO AM SHIFT NURSE. NO S/SX'S OF DISTRESS NO COMPLAINTS OF PAIN.
--- NOTE | 2018-12-14 07:10 | NUR ---
RECEIVED BEDSIDE REPORT FROM ASNTOS AMARAL. PT STABLE, SLEEPING, BUT EASILY AROUSABLE. NO SIGNS OF DISTRESS NOTED. NO SOB NOTED. NO REDNESS, SWELLING, OR INFLAMMATION NOTED ON IV SITE. CALL KELLY WITHIN REACH. BED IN LOWEST POSITION. SAFETY MEASURES IN PLACE. PLAN OF CARE REVIEWED.
[2018-12-14] MEDS: ALBUTEROL SULFATE/IPRATROPIU 3 ML SOL IH SCH ×3 (07:32→19:46)
[2018-12-14 07:43] LABS: BASOPHILS # (AUTO) 0.1 K/uL (0.00-0.22); BASOPHILS % (AUTO) 0.7 % (0.0-2.0); EOSINOPHILS # (AUTO) 0.1 K/uL (0-0.4); HEMATOCRIT 40.6 % (36-48); LYMPHOCYTES # (AUTO) 1.9 K/uL (2.5-16.5); LYMPHOCYTES % (AUTO) 15.9 % (20.5-51.1); MEAN CORPUSCULAR HEMOGLOBIN 28 pg (27-31); MEAN CORPUSCULAR HGB CONC 32 g/dL (33-37); MEAN CORPUSCULAR VOLUME 87.9 fL (80-94); MONOCYTES # (AUTO) 1.1 K/uL (0.8-1.0); MONOCYTES % (AUTO) 9.6 % (1.7-9.3); NEUTROPHILS # (AUTO) 8.5 K/uL (1.8-7.7); NEUTROPHILS % (AUTO) 72.8 % (42.2-75.2); PLATELET COUNT (AUTO) 315 K/uL (140-450); RED BLOOD CELL COUNT(AUTO) 4.62 MIL/uL (4.20-5.40); WHITE BLOOD COUNT (AUTO) 11.7 K/uL (4.8-10.8)
--- NOTE | 2018-12-14 07:45 | NUR ---
RECEIVED PATIENT ON ROOM AIR, PULSE OX SAT 87%. SCHEDULED BREATHING TREATMENT ADMINISTERED. TOLERATED TX WELL, NO ADVERSE SIDE EFFECTS. PATIENT ON CONTINUOUS PULSE OX MONITOR. PLACED PATIENT ON 2L NC PER OXYGEN ORDER TO MAINTAIN SATURATION >92%. REMINDED PATIENT TO LEAVE NASAL CANNULA ON. NO DISTRESS NOTED AT THIS TIME. WILL CONTINUE TO MONITOR.
[2018-12-14 08:00] VITALS: BP 130/83
[2018-12-14 08:11] LABS: ANION GAP 4.8 (8-16); CARBON DIOXIDE 39.8 mmol/L (21-32); CREATININE 0.8 mg/dL (0.6-1.3); POTASSIUM 3.6 mmol/L (3.5-5.1)
[2018-12-14 08:24] LABS: MAGNESIUM 2.2 mg/dL (1.8-2.4); PHOSPHORUS 3.1 mg/dL (2.5-4.9)
[2018-12-14] MEDS: PANTOPRAZOLE 40 MG INJ VIAL IVP SCH (09:20)
[2018-12-14] MEDS: methylPREDNISolone SS 40 MG/ML VIAL IVP SCH (09:21)
[2018-12-14] MEDS: FUROSEMIDE 40 MG/4 ML VIAL IVP SCH (09:21)
[2018-12-14] MEDS: ATORVASTATIN 20 MG TAB PO SCH (09:21)
[2018-12-14] MEDS: OSELTAMIVIR PHOSPHATE 75 MG CAP PO SCH (09:21)
[2018-12-14] MEDS: DOCUSATE SODIUM 100 MG GELCAP PO SCH ×2 (09:22→21:33)
[2018-12-14] MEDS: CARVEDILOL 12.5 MG TAB PO SCH ×2 (09:22→21:32)
[2018-12-14] MEDS: ASPIRIN 81 MG TAB.CHEW PO SCH (09:22)
[2018-12-14] MEDS: LISINOPRIL 5 MG TAB PO SCH (09:22)
--- NOTE | 2018-12-14 09:28 | NUR ---
ADMINISTERED SCHEDULED MEDICATIONS. PT TOLERATED WELL. ON 2L O2 VIA NC.
--- NOTE | 2018-12-14 09:54 | NUR ---
CONTINUOUS PULSE OX ALARMING. PATIENT REMOVED NASAL CANNULA. SATURATION DROPPED TO 87%. PLACED PATIENT BACK ON NASAL CANNULA. PULSE OX SAT WENT UP TO 92%. REMINDED PATIENT TO KEEP NASAL CANNULA IN PLACE TO MAINTAIN ADEQUATE OXYGENATION.
[2018-12-14 12:00] VITALS: BP 101/53
[2018-12-14] MEDS: INSULIN LISPRO SLIDING SCALE 100 UNITS/ML VIAL SUBQ PRN ×3 (12:22→21:30)
--- NOTE | 2018-12-14 12:24 | NUR ---
ADMINISTERED 2 UNITS OF HUMALOG FOR BG 165. PT TOLERATED WELL.
--- NOTE | 2018-12-14 13:34 | NUR ---
FOUND PATIENT TO HAVE REMOVED NASAL CANNULA AGAIN. FAMILY AT BEDSIDE. SCHEDULED BREATHING TREATMENT ADMINISTERED. TOLERATED TX WELL, NO ADVERSE SIDE EFFECTS. PLACED PATIENT ON 2L NC. EXPLAINED TO PATIENT AND FAMILY IT IS IMPORTANT FOR HER TO WEAR OXYGEN DURING DAY AND BIPAP AT NIGHT. NO RESPIRATORY DISTRESS NOTED AT THIS TIME. WILL CONTINUE TO MONITOR.
--- NOTE | 2018-12-14 13:51 | NUR ---
ADMINISTERED SCHEDULED MEDICATIONS. PT TOLERATED WELL. SON AT THE BEDSIDE.
[2018-12-14] MEDS: AZITHROMYCIN 500 MG in DEXTROSE 5% 250 ML IV SCH (14:54)
--- NOTE | 2018-12-14 15:00 | NUR ---
ADMINISTERED SCHEDULED MEDICATION. PT STABLE, AWAKE, AND ALERT. NO OTHER NEEDS AT THIS TIME.
[2018-12-14 16:00] VITALS: BP 116/70
--- NOTE | 2018-12-14 17:28 | NUR ---
ADMINISTERED 4 UNITS OF HUMALOG FOR BG 235. PT TOLERATED WELL.
--- NOTE | 2018-12-14 19:30 | NUR ---
ENDORSED PT TO SANTOS AMARAL FOR CONTINUITY OF CARE. PT STABLE, AWAKE, AND ALERT.
--- NOTE | 2018-12-14 19:31 | NUR ---
RECEIVED PATIENT FROM AM NURSE. ASLEEP BUT AROUSABLE .PT CAN AMBULATE TO THE BATHROOM. ON ROOM AIR, PULSE OX SAT 99% AT 2 LPM VIA NC. NO S/S'S OF RESPIRATORY DISTRESS. NO COMPLAINTS OF PAIN. OXYGEN ORDER TO MAINTAIN SATURATION >92%. REMINDED PATIENT TO LEAVE NASAL CANNULA ON. NO DISTRESS NOTED AT THIS TIME. WILL CONTINUE TO MONITOR.
[2018-12-14 20:00] VITALS: BP 105/61
--- NOTE | 2018-12-14 21:00 | NUR ---
APTT HIGH 51.4. WITHHELD HEPARIN . DR. PHILLIPS AWARE
--- NOTE | 2018-12-14 21:48 | NUR ---
Attempted to place bipap on patient for the night, pt refused, placed on 2lpm NC but pt non compliant and keeps taking nasal cannula off, no resp distress or SOB noted at this time, will cont to monitor.
--- NOTE | 2018-12-14 22:37 | NUR ---
PT C./O OF PAIN ON THE RIGHT HAND STILL WITH IVF INFUSING, D/C RIGHT HAND IV SITE
[2018-12-15] VITALS: BP 102/65
--- NOTE | 2018-12-15 | NUR ---
PT SLEEPING NO COMPLAINTS OF PAIN, AFEBRILE, WILL CONTINUE TO MONITOR
--- NOTE | 2018-12-15 02:15 | NUR ---
PT TOOK NASAL CANNULA OFF. PUT IT BACK ON PLACE. CHECKED 02 SAT, AT 98% AFTER PUTTING THE NC ON.WILL CONTINUE TO MONITOR.
[2018-12-15 03:59] VITALS: BP 131/91
--- NOTE | 2018-12-15 04:00 | NUR ---
PT AWAKE, AMBULATING IN ROOM. NO RESPIRATORY DISTRESS NOTED
[2018-12-15] MEDS: ALBUTEROL SULFATE/IPRATROPIU 3 ML SOL IH SCH ×3 (07:19→19:42)
--- NOTE | 2018-12-15 07:23 | NUR ---
ENDORSED TO AM SHIFT FOR CONTINUITY OF CARE. PT IN STABLE CONDITION.
--- NOTE | 2018-12-15 07:24 | NUR ---
RECEIVED PATIENT FROM AM NURSE. ASLEEP BUT AROUSABLE .PT CAN AMBULATE TO THE BATHROOM. ON ROOM AIR, PULSE OX SAT 97% AT 2L/MIN VIA NC. NO S/S OF RESPIRATORY DISTRESS. NO COMPLAINTS OF PAIN. OXYGEN ORDER TO MAINTAIN SATURATION >92%. REMINDED PATIENT TO LEAVE NASAL CANNULA ON. PER ELECT[employer] II ASSEMBLER RN, PT IS NON-COMPLIANT. NO DISTRESS NOTED AT THIS TIME. WILL CONTINUE TO MONITOR.
--- NOTE | 2018-12-15 07:30 | NUR ---
PT BLOOD SUGAR RESULT WAS MG/DL. NO INSULIN ADMINISTERED
--- NOTE | 2018-12-15 07:30 | NUR ---
PT OFF N\C SPO2 [address] RECEIVED PT OFF BIPAP
[2018-12-15] MEDS: BLOOD GLUCOSE MONITORING 1 DEV DEV FS SCH ×4 (07:32→21:21)
[2018-12-15 08:00] VITALS: BP 138/88
[2018-12-15] MEDS: ASPIRIN 81 MG TAB.CHEW PO SCH (09:34)
[2018-12-15] MEDS: PANTOPRAZOLE 40 MG INJ VIAL IVP SCH (09:34)
[2018-12-15] MEDS: methylPREDNISolone SS 40 MG/ML VIAL IVP SCH (09:34)
[2018-12-15] MEDS: LACTOBACILLUS RHAMNOSUS GG 1 EACH CAP PO SCH (09:34)
[2018-12-15] MEDS: FUROSEMIDE 40 MG/4 ML VIAL IVP SCH (09:34)
[2018-12-15] MEDS: DOCUSATE SODIUM 100 MG GELCAP PO SCH ×2 (09:34→21:12)
[2018-12-15] MEDS: CARVEDILOL 12.5 MG TAB PO SCH ×2 (09:35→21:12)
[2018-12-15] MEDS: ATORVASTATIN 20 MG TAB PO SCH (09:35)
[2018-12-15] MEDS: LISINOPRIL 5 MG TAB PO SCH (09:35)
--- NOTE | 2018-12-15 09:54 | NUR ---
PT AWAKE, AMBULATING IN ROOM. NO SOB OR PAIN NOTED. WILL CONTINUE OT MONITOR FREQUENTLY.
--- NOTE | 2018-12-15 11:04 | NUR ---
PT IS BEING NON-COMPLIANT WITH KEEPING NASAL CANNULA ON. I EXPLAINED THE RISKS AND PT VERBALIZED UNDERSTANDING. PT O2 AT 93% AT THIS TIME.
[2018-12-15] MEDS: AZITHROMYCIN 500 MG in DEXTROSE 5% 250 ML IV SCH (14:32)
--- NOTE | 2018-12-15 15:47 | NUR ---
I ASKED PT WHAT HER LIVING STATUS IS AND PT STATED THAT SHE IS HOMELESS. SHE STATED THAT SHE MOVES AROUND FROM HOUSE TO HOUSE WITH FRIENDS AND DOES NOT ALWAYS HAVE A PLACE TO STAY. WILL GIVE FOOD AND CLOTHING AT D/C.
[2018-12-15 16:00] VITALS: BP 112/62
[2018-12-15] MEDS: INSULIN LISPRO SLIDING SCALE 100 UNITS/ML VIAL SUBQ PRN ×2 (17:02→21:20)
--- NOTE | 2018-12-15 19:44 | NUR ---
PT ENDORSED TO MAIL HANDLER EQUIPMENT OPERATOR FOR CONTINUITY OF CARE. PT IN STABLE CONDITION.
--- NOTE | 2018-12-15 19:46 | NUR ---
RECEIVED PATIENT FROM AM NURSE. ASLEEP BUT AROUSABLE. PT CAN AMBULATE TO THE BATHROOM. PULSE OX SAT 98% AT 2L/MIN VIA NC. NO S/S OF RESPIRATORY DISTRESS. NO COMPLAINTS OF PAIN. OXYGEN ORDER TO MAINTAIN SATURATION >92%. REMINDED PATIENT TO LEAVE NASAL CANNULA ON. NO DISTRESS NOTED AT THIS TIME. WILL CONTINUE TO MONITOR.
--- NOTE | 2018-12-15 21:40 | NUR ---
PT ASLEEP, NO COMPLAINTS AT THIS TIME. NO S/S'S OF RESPIRATORY DISTRESS. AT 2L PM NASAL CANNULA ON. WILL CONTINUE TO MONITOR
[2018-12-15 22:00] VITALS: BP 110/63
--- NOTE | 2018-12-16 03:03 | NUR ---
PT AWAKE, CHECKED ON HER FREQUENTLY Q HOURLY. PT ATE DIABETIC SNACK
[2018-12-16 04:00] VITALS: BP 108/70
[2018-12-16] MEDS: BLOOD GLUCOSE MONITORING 1 DEV DEV FS SCH ×3 (06:37→16:51)
[2018-12-16] MEDS: ALBUTEROL SULFATE/IPRATROPIU 3 ML SOL IH SCH ×3 (07:00→20:05)
--- NOTE | 2018-12-16 07:02 | NUR ---
WILL ENDORSE TO NEXT SHIFT FOR CONTINUITY OF CARE. PT KEEPS TAKING OFF O2 NASAL CANNULA. NURSE PUT IN BACK IN .
[2018-12-16 07:11] LABS: ANION GAP 4.3 (8-16); POTASSIUM 4.4 mmol/L (3.5-5.1)
[2018-12-16 07:13] LABS: MAGNESIUM 2.1 mg/dL (1.8-2.4); PHOSPHORUS 3.7 mg/dL (2.5-4.9)
--- NOTE | 2018-12-16 07:20 | NUR ---
REPORT RECEIVED FROM NIGHT NURSE, PT ASLEEP. EASILY AROUSABLE TO A/O ABLE TO COMMUNICATE NEED. DENIES PAIN, DENIES SOB, NO S/S OF ACUTE DISTRESS NOTED AT THIS TIME. CALL LIGHT AND PERSONAL ITEMS WITHIN REACH, SAFETY AND FALL PRECAUTIONS IN PLACE, DROPLET PRECAUTIONS MAINTAINED, WILL CONTINUE TO MONITOR.
[2018-12-16 07:22] LABS: BASOPHILS % (AUTO) 0.4 % (0.0-2.0); EOSINOPHILS # (AUTO) 0.3 K/uL (0-0.4); HEMATOCRIT 37.1 % (36-48); HEMOGLOBIN 12.2 g/dL (12.0-16.0); LYMPHOCYTES # (AUTO) 1.8 K/uL (2.5-16.5); LYMPHOCYTES % (AUTO) 19.4 % (20.5-51.1); MEAN CORPUSCULAR HEMOGLOBIN 29 pg (27-31); MEAN CORPUSCULAR HGB CONC 33 g/dL (33-37); MEAN CORPUSCULAR VOLUME 86.8 fL (80-94); MONOCYTES # (AUTO) 0.9 K/uL (0.8-1.0); MONOCYTES % (AUTO) 9.2 % (1.7-9.3); NEUTROPHILS # (AUTO) 6.4 K/uL (1.8-7.7); PLATELET COUNT (AUTO) 367 K/uL (140-450); RED BLOOD CELL COUNT(AUTO) 4.27 MIL/uL (4.20-5.40); RED CELL DISTRIBUTION WIDTH 13.9 % (11.6-13.7); WHITE BLOOD COUNT (AUTO) 9.4 K/uL (4.8-10.8)
--- NOTE | 2018-12-16 07:30 | NUR ---
FOLLOWED W Simone CAMARGO REGARDING PT CO2 LEVELS, PER PT CURRENTLY HAS ORDERS FOR RT, O2 SUPPLEMENTS AND BIPAP. PER MD ENSURE PT MAINTAINS O2 ORDERED.
[2018-12-16 07:37] LABS: CARBON DIOXIDE 40.1 mmol/L (21-32)
[2018-12-16] MEDS: PANTOPRAZOLE 40 MG INJ VIAL IVP SCH (09:24)
[2018-12-16] MEDS: FUROSEMIDE 40 MG/4 ML VIAL IVP SCH (09:24)
[2018-12-16] MEDS: methylPREDNISolone SS 40 MG/ML VIAL IVP SCH (09:24)
[2018-12-16] MEDS: LACTOBACILLUS RHAMNOSUS GG 1 EACH CAP PO SCH (09:25)
[2018-12-16] MEDS: LISINOPRIL 5 MG TAB PO SCH (09:25)
[2018-12-16] MEDS: DOCUSATE SODIUM 100 MG GELCAP PO SCH (09:25)
[2018-12-16] MEDS: ASPIRIN 81 MG TAB.CHEW PO SCH (09:25)
[2018-12-16] MEDS: CARVEDILOL 12.5 MG TAB PO SCH (09:25)
[2018-12-16] MEDS: ATORVASTATIN 20 MG TAB PO SCH (09:25)
[2018-12-16 10:00] VITALS: BP 130/79
--- NOTE | 2018-12-16 10:30 | NUR ---
FOLLOWED W Simone CAMARGO REGARDING PT CO2 LEVELS, PT CURRENTLY WEARING 02 VIA NC BUT PER RT PT INCONSISTENT WITH USE AND REFUSES BIPAP AT NIGHT. DR CAMARGO SPOKE WITH PT REGARDING O2 AND BIPAP USE AND NECESSITY, PT VERBALIZED UNDERSTANDING AND IS AGREEABLE. PT CURRENTLY RESTING IN BED, CALL LIGHT AND PERSONAL ITEMS WITHIN REACH, SAFETY AND FALL PRECAUTIONS IN PLACE, DROPLET PRECAUTIONS MAINTAINED, WILL CONTINUE TO MONITOR.
--- NOTE | 2018-12-16 11:00 | NUR ---
PLACED BIPAP FOR ONE HOUR PER DR CAMARGO PT IS ALERT IN HF BS CLEAR GEL UNDER MED SIZE MASK ,CONT. POX IN PLACE ALARMS ARE ONAD AUDIBLE PT ON DOCUMENTED SETTINGS
[2018-12-16] MEDS ORDERED: LORazepam 2 MG/ML VIAL IVP PRN (11:55)
[2018-12-16] MEDS ORDERED: HYDROcodone/APAP 7.5/325 MG 1 TAB PO PRN (11:55)
--- NOTE | 2018-12-16 12:44 | NUR ---
AMBERLY REPORTED TO DR CAMARGO
--- NOTE | 2018-12-16 13:30 | NUR ---
PT AWAKE A/O ABLE TO COMMUNICATE NEED. DENIES PAIN, DENIES SOB, O2 VIA NC IN PLACE. NO S/S OF ACUTE DISTRESS NOTED AT THIS TIME. CALL LIGHT AND PERSONAL ITEMS WITHIN REACH, SAFETY AND FALL PRECAUTIONS IN PLACE, DROPLET PRECAUTIONS MAINTAINED, WILL CONTINUE TO MONITOR.
--- NOTE | 2018-12-16 13:47 | NUR ---
DECREASED FIO2 TO 1 L SPO2 99
[2018-12-16] MEDS: AZITHROMYCIN 500 MG in DEXTROSE 5% 250 ML IV SCH (14:28)
[2018-12-16 16:00] VITALS: BP 124/72
--- NOTE | 2018-12-16 16:30 | NUR ---
PT ASLEEP EASILY AROUSABLE TO A/O AND ABLE TO COMMUNICATE NEED. DENIES PAIN, DENIES SOB, O2 VIA NC IN PLACE. NO S/S OF ACUTE DISTRESS NOTED AT THIS TIME. CALL LIGHT AND PERSONAL ITEMS WITHIN REACH, SAFETY AND FALL PRECAUTIONS IN PLACE, DROPLET PRECAUTIONS MAINTAINED, WILL CONTINUE TO MONITOR.
--- NOTE | 2018-12-16 19:25 | NUR ---
PT REMAINED A/O THROUGHOUT SHIFT. PT DENIES PAIN, DENIES SOB, O2 ADMINISTERED PER ORDER. NO S/S OF ACUTE DISTRESS NOTED AT THIS TIME. CALL LIGHT AND PERSONAL ITEMS WITHIN REACH, SAFETY AND FALL PRECAUTIONS IN PLACE. REPORT ENDORSED TO NIGHT NURSE NURSE.
--- NOTE | 2018-12-16 20:20 | NUR ---
PATIENT SPOKE TO DR. ARIAS TO HOME AGAINST MEDICAL ADVICE, EXPLAINED ABOUT THE RISK OF LEAVING THE HOSPITAL AND PAPERWORK SIGNED BY PATIENT WITNESS BY DR. ARIAS.
--- NOTE | 2018-12-16 20:35 | NUR ---
CLOTHES PROVIDED TO PATIENT AND LEFT IN STABLE CONDITION.
== END 2018-12-16 20:35 | disposition left against medical advice (07) | DRG 190 ==
LOC: MED 04:00 → MIC 05:58 → MTU 12-11 20:35
PROVIDERS: ADMIT General Practice; ATTEND General Practice
PROC: 5A09357 Assistance with Respiratory Ventilation, Less than 24 Consecutive Hours, Continuous Positive Airway Pressure (ICD-10-PCS; principal; 2018-12-09)
DX: I21.A1 Myocardial infarction type 2 (principal); J96.01 Acute respiratory failure with hypoxia; G92 Toxic encephalopathy; I50.43 Acute on chronic combined systolic (congestive) and diastolic (congestive) heart failure; J18.9 Pneumonia, unspecified organism; E44.0 Moderate protein-calorie malnutrition; E11.65 Type 2 diabetes mellitus with hyperglycemia; I11.0 Hypertensive heart disease with heart failure; I42.7 Cardiomyopathy due to drug and external agent; E83.39 Other disorders of phosphorus metabolism; J45.901 Unspecified asthma with (acute) exacerbation; J11.1 Influenza due to unidentified influenza virus with other respiratory manifestations; Z68.20 Body mass index [BMI] 20.0-20.9, adult; F15.10 Other stimulant abuse, uncomplicated; Z90.721 Acquired absence of ovaries, unilateral; I16.0 Hypertensive urgency; E66.9 Obesity, unspecified; Z68.29 Body mass index [BMI] 29.0-29.9, adult; E78.5 Hyperlipidemia, unspecified; F19.90 Other psychoactive substance use, unspecified, uncomplicated; Z91.19 Patient's noncompliance with other medical treatment and regimen
CPT/HCPCS: 36415; 36600; 71045; 80048; 80053; 80305; 81001; 82150; 82803; 82948; 83036; 83605; 83690; 83735; 83880; 84100; 84439; 84443; 84484; 85025; 85610; 85730; 87040; 87081; 87086; 87804; 93005; 93308; 93925; 93970; 94640; 94660; 96374; 96375; 99291; C1758; C9113; J0456; J0696; J1644; J1815; J1940; J2060; J2270; J2920; J2930; J3490; J7030; J7042; J7060; J7620; Q0092

== ENCOUNTER 2019-03-26 14:31 | Emergency (ER) | payer SELFPAY ==
[~2019-03-26] VITALS: Ht 152.4 cm; Wt 53.5 kg
[~2019-03-26 14:31] MED LIST changes: -AZIT1PDR6 PO; -BENZ100C6 PO; +CARV12.52 PO; -CARV3.122 PO; -LISI-420 PO; +LISI-424 PO
--- NOTE | 2019-03-26 14:39 | NUR ---
PT AMB TO BED 9 WITH STEADY GAIT
--- NOTE | 2019-03-26 14:41 | NUR ---
53 Y FEMALE BIB FAMILY C/O NOSEBLEED X2 DAYS, UNCONTROLLED, MINIMAL BLEEDING. PT DENIES TRAUMA/INJURY. PT BP 156/113. TACHYCARDIA AT 120. PT STATES SHE HAS BEEN OUT OF ALL OF HER MEDICATIONS FOR THE PAST 2 WEEKS. PT ALERT AND ORIENTED X4. COMORAN SPEAKING, FAMILY TRANSLATED. BED IS DOWN, LOCKED, BED RAIL X 1, ERMD TO SEE PT. HX: HTN, COPD, CHF, ASTHMA RX: SEE MED REC
[2019-03-26 14:47] VITALS: BP 156/113
--- NOTE | 2019-03-26 14:48 | NUR ---
PT TAUGHT PROPER TECHNIQUE TO STOP NOSE BLEED. PT INSTRUCTED TO PINCH THE NOSE AND LEAN FORWARD AND CONTINUE TO HOLD PRESSURE.
--- NOTE | 2019-03-26 14:49 | NUR ---
BLAS GRAHAM CALLED [employer] FOR NOSE CAMPLS, LEFT MESSAGE
--- NOTE | 2019-03-26 15:07 | NUR ---
DR DAN AT BEDSIDE
--- NOTE | 2019-03-26 15:18 | NUR ---
PRINTED OFF [employer] REC AND ASKED PATIENT IF SHE RECOGNIZED ANY OF THE LISTED MEDICATIONS AND IF SHE IS SUPPOSED TO BE TAKING THEM. PER TRANSLATION, PT STATES SHE HAS NO IDEA BUT TAKES A "WATER PILL, HEART PILL, AND BP PILL".
[2019-03-26] MEDS ORDERED: LISINOPRIL 10 MG TAB PO SCH (15:20)
[2019-03-26] MEDS ORDERED: CARVEDILOL 6.25 MG TAB PO ONE (15:20)
[2019-03-26] MEDS ORDERED: TRANEXAMIC ACID 1,000 MG in NACL 0.9% 50 ML IV STA (15:21)
[2019-03-26] MEDS ORDERED: TRANEXAMIC ACID 1,000 MG/10 ML VIAL IV ONE (15:43)
--- NOTE | 2019-03-26 15:45 | NUR ---
TRANEXAMIC ACID AT BEDSIDE, DR DAN PERFORMING PROCEDURE
--- NOTE | 2019-03-26 16:00 | NUR ---
PATIENT CRYING AND YELLING. STATES SHE IS HAVING AN ANXIETY ATTACK. BLAS GRAHAM SPEAKING WITH DAUGHTER AND PATIENT AT THIS TIME.
--- NOTE | 2019-03-26 16:01 | NUR ---
DR DAN RE-EVALUATING PT
[2019-03-26] MEDS ORDERED: LORazepam 1 MG TAB PO ONE (16:10)
--- NOTE | 2019-03-26 16:10 | NUR ---
DR DAN INSERTED ROCKET NOSE PLUG.
[2019-03-26 16:33] VITALS: BP 138/97
--- NOTE | 2019-03-26 16:33 | NUR ---
Patient discharged with v/s stable. Written and verbal after care instructions given and explained. Patient alert, oriented and verbalized understanding of instructions. Ambulatory with steady gait. All questions addressed prior to discharge. ID band removed. Patient advised to follow up with PMD. Rx of LISINOPRIL, ASPIRIN, FUROSEMIDE, CARVEDILOL, VENTOLIN, ATORVASTATIN given. Patient educated on indication of medication including possible reaction and side effects. Opportunity to ask questions provided and answered. DAUGHTER TRANSLATED. INSTRUCTED TO LEAVE ROCKET IN FOR 24 TO 48 HOURS
== END 2019-03-26 16:33 | disposition home or self-care (01) ==
LOC: MED 14:31
DX: R04.0 Epistaxis (principal); I11.0 Hypertensive heart disease with heart failure; I50.9 Heart failure, unspecified; J44.9 Chronic obstructive pulmonary disease, unspecified; F41.9 Anxiety disorder, unspecified; F15.10 Other stimulant abuse, uncomplicated; Z79.82 Long term (current) use of aspirin; Z79.899 Other long term (current) drug therapy
CPT/HCPCS: 96374; 99283; J3490

== ENCOUNTER 2019-04-05 16:36 | Inpatient (IN) | payer MEDICAID ==
--- NOTE | 2019-04-03 21:30 | NUR ---
REPORT RECEIVED FROM ED NURSE AT BEDSIDE. PT IN STABLE CONDITION. AAOX4. INTRODUCED SELF TO PT. BOARD UPDATED. NO COMPLAINTS OF PAIN. NO SOB ON 4L O2 VIA NC. AFEBRILE. PT IS SLIGHTLY HYPOTENSIVE. IV SITE R AC 20G RUNNING AZITHROMYCIN@250ML/HR AND BOLUS OF NS PATENT AND INTACT. SKIN WARM, DRY, AND INTACT WITH NO OPEN WOUNDS. BED LOCKED IN LOW POSITION. CALL KELLY WITHIN REACH. SAFETY PRECAUTION IN PLACE. ALL NEEDS MET AT THIS TIME.
[~2019-04-05] VITALS: Ht 154.9 cm; Wt 55.3 kg
[2019-04-05 16:40] VITALS: BP 94/49
--- NOTE | 2019-04-05 16:40 | NUR ---
PT LOOKED PALE AND LABORED BREATHING, O2 NC 2/MIN DEANNE TO PT IMMEDIATLEY .ASSISTED PT TO ROOM AND DID BEDSIDE TRIAGE ASSESSMENT.
--- NOTE | 2019-04-05 16:47 | NUR ---
Patient ambulated to bed 9 with family. RN evaluating patient at bedside.
--- NOTE | 2019-04-05 16:47 | NUR ---
PT BIB SELF, AAO X4 C/O SOB X 3 DAYS, CHESTWALL PAIN WHILE COUGHING. LABORED BREATHING NOTED, O2 SATS 94 % ON RA.O2 SATS INCREASED TO 98% AFTER O2 NC 2L/MIN. PT USING MILD ACCESSORY MUSCLE WHILE BREATHING. PT HAS DRY COUGH, WHEEZING TO BREANNE LUNGS DURING EXPIRATORY UPON AUSCULTATION. DR. ROWAN NOTIFIED. RT AT THE BEDSIDE, PT ON BREATHING TREATMENT. EKG DONE AT THE BEDSIDE. PT PLACED ON FULL MAIL FORWARDING SYSTEM MARKUP CLERK. ER MD TO SEE THE PT.
[2019-04-05] MEDS ORDERED: predniSONE 20 MG TAB PO ONE (17:00)
[2019-04-05] MEDS ORDERED: ALBUTEROL 0.083% 2.5 MG/3 ML NEBU INH ONE ×2 (17:00→19:00)
[2019-04-05] MEDS ORDERED: ALBUTEROL SULFATE/IPRATROPIU 3 ML SOL IH ONE ×2 (17:00→19:00)
[2019-04-05] MEDS ORDERED: ASPIRIN 325 MG TAB ONE (17:04)
--- NOTE | 2019-04-05 17:05 | NUR ---
Breathing treatment administered at bedside by respiratory therapist.
--- NOTE | 2019-04-05 17:11 | NUR ---
Dr. Martínez evaluating patient at bedside.
--- NOTE | 2019-04-05 17:20 | NUR ---
MILD WHEEZING NOTED TO BREANNE UPPER LUNGS DURING EXPIRATION UPON AUSCULTATION. PT ON O2 2LPM VIA NC, O2 SAT 98%, NO S/S OF RESPIRATORY DISTRESS NOTED. PT ABLE TO SPEAK WITH FULL CLEAR SPEECH.
--- NOTE | 2019-04-05 17:28 | NUR ---
DR ROWAN AWARE OF PT'S HX OF CHF. PER DR ROWAN, OK TO START NS 1L BOLUS.
--- NOTE | 2019-04-05 17:28 | NUR ---
PT BP 80/50. DR. ROWAN NOTIFIED. ORDERED 1 L 0.9 NS IVF BOLUS.
[2019-04-05] MEDS ORDERED: NACL 0.9% 1,000 ML IV ONE (17:30)
--- NOTE | 2019-04-05 18:09 | NUR ---
DR ROWAN AT BEDSIDE FOR PT RE EVALUATION
[2019-04-05] MEDS ORDERED: KETOROLAC 15 MG/ML VIAL IVP ONE (18:10)
--- NOTE | 2019-04-05 18:22 | NUR ---
ADMINISTERED MEDS TO PT ORDERED. PT PAIN 8/10 AT THIS TIME. WILL REASSESS PAIN IN 30 MINUTES. WILL CONTINUE TO MONITOR PT.
--- NOTE | 2019-04-05 18:25 | NUR ---
PT ASSISTED TO THE BATHROOM VIA WHEEL CHAIR. URINE SPECIMEN OBTAINED.
--- NOTE | 2019-04-05 18:32 | NUR ---
PT ASSISTED BACK TO BED VIA WHEEL CHAIR. PT PLACED ON FULL MACHINE CARTON MARKER AND OXYGEN
--- NOTE | 2019-04-05 18:34 | NUR ---
Dr. Martínez evaluating patient at bedside.
--- NOTE | 2019-04-05 19:00 | NUR ---
PT STATES NOT STABLE ENOUGH TO GO HOME AT THIS TIME. DR. ROWAN NOTIFIED. DR Ángel ROWAN TO ORDER BREATHING TREATMENT FOR PT BEFORE DISCHARGE.
--- NOTE | 2019-04-05 19:14 | NUR ---
BEDSIDE REPORT GIVEN TO SANTOS HYDE. PT EGTTIONG BREATHING TREATMENT. VS SATBLE AT THIS TIME.
--- NOTE | 2019-04-05 20:00 | NUR ---
PT STILL NOT FEELING WELL, BP HAS DECREASED TO 103/53, WHEEZING BILATERAL, DEMINISHED LUNG SOUNDS THROUGHOUT. ER MD IS REEVALUATING PT. MONITORING PT.
[2019-04-05] MEDS ORDERED: methylPREDNISolone SS 125 MG in WATER STERILE 2 ML IV ONE (20:05)
[2019-04-05] MEDS ORDERED: MAG SULF 2000 MG/WATER PREMIX 50 ML IV ONE (20:05)
[2019-04-05 20:29] LABS: BASOPHILS % (AUTO) 0.3 % (0.0-2.0); EOSINOPHILS # (AUTO) 0.3 K/uL (0-0.4); EOSINOPHILS % (AUTO) 1.7 % (0.0-4.0); HEMATOCRIT 32.5 % (36-48); HEMOGLOBIN 10.6 g/dL (12.0-16.0); LYMPHOCYTES # (AUTO) 0.6 K/uL (2.5-16.5); LYMPHOCYTES % (AUTO) 4.1 % (20.5-51.1); MEAN CORPUSCULAR HEMOGLOBIN 28 pg (27-31); MEAN CORPUSCULAR HGB CONC 33 g/dL (33-37); MEAN CORPUSCULAR VOLUME 86.4 fL (80-94); MONOCYTES # (AUTO) 0.5 K/uL (0.8-1.0); MONOCYTES % (AUTO) 3.2 % (1.7-9.3); NEUTROPHILS # (AUTO) 13.9 K/uL (1.8-7.7); NEUTROPHILS % (AUTO) 90.7 % (42.2-75.2); PLATELET COUNT (AUTO) 357 K/uL (140-450); RED BLOOD CELL COUNT(AUTO) 3.76 MIL/uL (4.20-5.40); RED CELL DISTRIBUTION WIDTH 13.1 % (11.6-13.7); WHITE BLOOD COUNT (AUTO) 15.3 K/uL (4.8-10.8)
[2019-04-05 20:30] LABS: ANION GAP 11.8 (8-16); CARBON DIOXIDE 30.8 mmol/L (21-32); CREATININE 1.2 mg/dL (0.6-1.3); POTASSIUM 3.6 mmol/L (3.5-5.1)
[2019-04-05] MEDS ORDERED: ONDANSETRON 4 MG/2 ML VIAL IVP PRN (20:35)
[2019-04-05] MEDS ORDERED: ACETAMINOPHEN 325 MG TAB PO PRN (20:35)
[2019-04-05] MEDS ORDERED: HYDROcodone/APAP 7.5/325 MG 1 TAB PO PRN (20:35)
[2019-04-05] MEDS ORDERED: ALBUTEROL SULFATE/IPRATROPIU 3 ML SOL IH PRN (20:35)
[2019-04-05 20:36] LABS: ALBUMIN 2.7 g/dL (3.4-5.0); TOTAL BILIRUBIN 0.6 mg/dL (0.0-1.0)
[2019-04-05] MEDS ORDERED: LEVOFLOXACIN 750 MG/D5W PREMIX 150 ML IV ONE (20:50)
[2019-04-05] MEDS ORDERED: AZITHROMYCIN 500 MG in DEXTROSE 5% 250 ML IV ONE (20:50)
--- NOTE | 2019-04-05 21:03 | NUR ---
PT TOLERATED MEDS WELL, PENDING ADMIT. ER MD MADE AWARE OF STATUS.
[2019-04-05] MEDS ORDERED: AZITHROMYCIN 500 MG INJ VIAL IV ONE (21:17)
[2019-04-05 21:30] VITALS: BP 86/54
--- NOTE | 2019-04-05 21:30 | NUR ---
Patient will be admitted to care of Dr. Domingo. Admited to tele. Will go to room 120b. Belongings list completed. Report to SANTOS Mcadams. PT VSS
[2019-04-05 21:49] LABS: PROTHROMBIN TIME 10.8 secs (10.8-13.4)
[2019-04-05 21:57] LABS: FREE T4 (FREE THYROXINE) 1.22 ng/dL (0.76-1.46); MAGNESIUM 1.8 mg/dL (1.8-2.4); PHOSPHORUS 3.4 mg/dL (2.5-4.9); THYROID STIMULATING HORMONE 1.27 uIU/mL (0.34-3.74)
[2019-04-05] MEDS: NACL 0.9% 1,000 ML IV SCH (21:58)
[2019-04-05] MEDS: DOCUSATE SODIUM 100 MG GELCAP PO SCH (22:13)
--- NOTE | 2019-04-05 22:13 | NUR ---
COLACE GIVEN PO. ROCEPHIN HUNG AND RUNNING. PT TOLERATING WELL.
[2019-04-05] MEDS ORDERED: cefTRIAXone 1,000 MG VIAL ONE (22:22)
[2019-04-05] MEDS ORDERED: NACL 0.9% 500 ML IV ONE (22:25)
[2019-04-05] MEDS ORDERED: DEXTROSE 50% 50 ML SYR IVP PRN (22:30)
--- NOTE | 2019-04-05 22:51 | NUR ---
HEPARIN GIVEN SUBQ. PT TOLERATED WELL.
--- NOTE | 2019-04-05 23:23 | NUR ---
MELITON HUNG AND RUNNING. ORDERED 500ML NS BOLUS HUNG AND RUNNING. PT TOLERATING WELL.
[2019-04-06] VITALS: BP 109/62
--- NOTE | 2019-04-06 | NUR ---
BOLUS COMPLETE. BP 109/62 AND HR 80.
--- NOTE | 2019-04-06 01:45 | NUR ---
PT SLEEPING COMFORTABLY IN BED BUT AROUSABLE. NO S/S OF DISTRESS NOTED. NO COMPLAINTS OF PAIN. NO SOB. AFEBRILE. WILL CONTINUE TO MONITOR.
--- NOTE | 2019-04-06 03:50 | NUR ---
NORCO GIVEN FOR 6/10 CHEST PAIN. PT TOLERATED WELL. MD NOTIFIED DUE TO LOW BP. OK TO GIVE NORCO.
[2019-04-06 04:00] VITALS: BP 106/65
--- NOTE | 2019-04-06 04:31 | NUR ---
SOLUMEDROL GIVEN IVP. PT TOLERATED WELL.
[2019-04-06] MEDS ORDERED: methylPREDNISolone SS 125 MG/2 ML VIAL IVP SCH (05:00)
[2019-04-06] MEDS: BLOOD GLUCOSE MONITORING 1 DEV DEV FS SCH ×4 (05:38→21:12)
[2019-04-06] MEDS: INSULIN LISPRO SLIDING SCALE 100 UNITS/ML VIAL SUBQ PRN ×4 (05:46→21:18)
--- NOTE | 2019-04-06 05:46 | NUR ---
BS 166. 2 UNITS OF HUMALOG GIVEN. PT TOLERATED WELL.
[2019-04-06] MEDS: ALBUTEROL SULFATE/IPRATROPIU 3 ML SOL IH SCH ×3 (06:34→19:13)
[2019-04-06] MEDS: BUDESONIDE 0.5 MG/2 ML NEBU INH SCH ×2 (06:43→19:13)
--- NOTE | 2019-04-06 07:04 | NUR ---
REPORT GIVEN TO AM NURSE AT BEDSIDE. PT IN STABLE CONDITION.
[2019-04-06 07:11] LABS: MAGNESIUM 2.3 mg/dL (1.8-2.4); PHOSPHORUS 2.6 mg/dL (2.5-4.9)
[2019-04-06 07:13] LABS: BASOPHILS % (AUTO) 0.1 % (0.0-2.0); HEMATOCRIT 31.3 % (36-48); HEMOGLOBIN 10.3 g/dL (12.0-16.0); LYMPHOCYTES # (AUTO) 0.4 K/uL (2.5-16.5); MEAN CORPUSCULAR HEMOGLOBIN 29 pg (27-31); MEAN CORPUSCULAR HGB CONC 33 g/dL (33-37); MONOCYTES # (AUTO) 0.2 K/uL (0.8-1.0); NEUTROPHILS # (AUTO) 9.6 K/uL (1.8-7.7); PLATELET COUNT (AUTO) 356 K/uL (140-450); WHITE BLOOD COUNT (AUTO) 10.2 K/uL (4.8-10.8)
[2019-04-06 07:17] LABS: ANION GAP 10.2 (8-16); CARBON DIOXIDE 30.1 mmol/L (21-32); POTASSIUM 3.3 mmol/L (3.5-5.1)
[2019-04-06 07:20] LABS: CHOL/HDL RATIO 2.7 (1-4.5)
--- NOTE | 2019-04-06 07:50 | NUR ---
PATIENT WAS AWAKE, ALERT. RESPIRATION EVEN, UNLABOR ON 2L NC. SKIN DRY AND WARM. IV PATENT AND INTACT. DENIED PAIN, SOB. PLAN OF CARE WAS DISCUSSED WITH PATIENT. BED AT LOW POSITION, SIDE RAILS UP. CALL LIGHT WITHIN REACH
[2019-04-06 08:00] VITALS: BP 97/64
--- NOTE | 2019-04-06 08:00 | NUR ---
PATIENT COMPLAINED OF RIGHT FOOT PAIN 04/23. MD WAS AT BEDSIDE. WILL MEDICATE PER ORDER
[2019-04-06 08:03] LABS: LYMPHOCYTES % (AUTO) 3.6 % (20.5-51.1); MONOCYTES % (AUTO) 1.5 % (1.7-9.3); NEUTROPHILS % (AUTO) 94.8 % (42.2-75.2)
[2019-04-06] MEDS ORDERED: PROMETH/CODEINE 6.25-10MG/5ML 5 ML UDC PO PRN (08:05)
[2019-04-06] MEDS ORDERED: MORPHINE SULFATE 2 MG/ML SYR IVP PRN (08:05)
[2019-04-06] MEDS: FUROSEMIDE 40 MG TAB PO SCH ×2 (08:51→21:06)
[2019-04-06] MEDS: ATORVASTATIN 20 MG TAB PO SCH (08:51)
[2019-04-06] MEDS: DOCUSATE SODIUM 100 MG GELCAP PO SCH ×2 (08:51→21:07)
[2019-04-06] MEDS: CARVEDILOL 12.5 MG TAB PO SCH ×2 (08:51→21:07)
[2019-04-06] MEDS: ASPIRIN 81 MG TAB.CHEW PO SCH (08:51)
[2019-04-06] MEDS: LISINOPRIL 5 MG TAB PO SCH (08:52)
[2019-04-06] MEDS ORDERED: SODIUM FERRIC GLUCONATE 125 MG in NACL 0.9% 100 ML IV SCH (09:00)
--- NOTE | 2019-04-06 09:00 | NUR ---
PATIENT WAS EXPLAINED THAT SPUTUM SAMPLE NEEDED TO BE COLLECTED PER ORDER. PATIENT VERBALIZED UNDERSTANDING. SPECIMEN CUP WAS PLACED AT BEDSIDE
--- NOTE | 2019-04-06 09:53 | NUR ---
PATIENT WAS RESTING COMFORTABLY. PATIENT WAS FOUND OFF OXYGEN. PATIENT WAS EXPLAINED SHE NEEDS TO BE ON OXYGEN AT ALL TIME. PATIENT VERBALIZED UNDERSTANDING. MED WAS GIVEN PER ORDER
[2019-04-06] MEDS ORDERED: POTASSIUM CHLORIDE 10 MEQ TABER PO SCH (10:30)
[2019-04-06 12:00] VITALS: BP 102/66
[2019-04-06] MEDS ORDERED: predniSONE 20 MG TAB PO SCH (12:00)
--- NOTE | 2019-04-06 12:15 | NUR ---
PATIENT WAS AWAKE, ALERT. RESPIRATION EVEN, UNLABOR ON 2L NC. DENIED PAIN, SOB AT THIS TIME. NO DISTRESS NOTED. CALL LIGHT WITHIN REACH
--- NOTE | 2019-04-06 14:20 | NUR ---
PATIENT WAS SLEEPING COMFORTABLY. RESPIRATION EVEN, UNLABOR ON 2L NC. NO DISTRESS NOTED AT THIS TIME
[2019-04-06] MEDS: NACL 0.9% 1,000 ML IV SCH ×2 (15:03→21:16)
[2019-04-06 16:00] VITALS: BP 113/64
--- NOTE | 2019-04-06 16:00 | NUR ---
PATIENT WAS SLEEPING COMFORTABLY. RESPIRATION EVEN, UNLABOR ON 2L NC. DENIED PAIN, SOB AT THIS TIME. NO DISTRESS NOTED
--- NOTE | 2019-04-06 17:00 | NUR ---
PATIENT STATED SHE THREW URINE SAMPLE AWAY. PATIENT WAS EXPLAINED URINE SAMPLE WAS NEEDED PER ORDER, AND CALL STAFF SOON SHE URINATES. PATIENT VERBALIZED UNDERSTANDING.
--- NOTE | 2019-04-06 18:14 | NUR ---
PATIENT WAS AWAKE, ALERT. IV PATENT AND INTACT. PATIENT WAS REMINDED THAT URINE SAMPLE WAS STILL NEEDED TO BE COLLECTED. PATIENT VERBALIZED UNDERSTANDING. NO DISTRESS NOTED AT THIS TIME
--- NOTE | 2019-04-06 18:15 | NUR ---
PATIENT WAS PLACED ON ROOM AIR PER ORDER. SPO2 92%. PATIENT WAS PLACED BACK ON 2L NC. WILL NOTIFY
--- NOTE | 2019-04-06 18:30 | NUR ---
URINE SAMPLE WAS COLLECTED AND SENT TO LAB PER ORDER
[2019-04-06 18:48] LABS: APPEARANCE,URINE CLEAR (CLEAR); BILIRUBIN,URINE NEGATIVE (NEGATIVE); BLOOD, URINE NEGATIVE (NEGATIVE); COLOR,URINE YELLOW (YELLOW); LEUKOCYTE ESTERASE ,URINE NEGATIVE (NEGATIVE); NITRITE, URINE NEGATIVE (NEGATIVE); PH,URINE 6.5 (5.0-9.0); UGLUCOSE 1+ (NEGATIVE)
[2019-04-06 18:56] LABS: BARBITURATE, URINE NEG. ng/ml (NEG <=200); BENZODIAZEPINE, URINE NEG. ng/mL (NEG <=200); CANNABINOID, URINE NEG. ng/mL (NEG <=50); COCAINE, URINE NEG. ng/mL (NEG <=300); OPIATE, URINE POS. ng/mL (NEG <=2000); PHENCYCLIDINE SCREEN,URINE NEG. ng/mL (NEG <=25)
--- NOTE | 2019-04-06 19:14 | NUR ---
ENDORSEMENT GIVEN TO [employer] SALES REPRESENTATIVE NURSE. PATIENT IS STABLE AT THIS TIME
--- NOTE | 2019-04-06 19:20 | NUR ---
RECEIVED BEDSIDE REPORT FROM DAY SHIFT NURSE AYSE. PATIENT IS SLEEPING BUT AROUSABLE TO NAME. RESPIRATION EVEN UNLABORED ON 2L O2 NC. NO DISTRESS NOTED. SKIN IS WARM AND DRY. IV PATENT AND INTACT. PATIENT IS AMBULATORY AND ABLE TO MAKE NEEDS KNOWN. PLAN OF CARE WAS DISCUSSED. ALL SAFETY MEASURES IN PLACE. BED IS AT LOW POSITION. CALL LIGHT WITHIN REACH AND VERBALIZES ITS USE. WILL CONTINUE TO MONITOR.
[2019-04-06 20:00] VITALS: BP 126/73
--- NOTE | 2019-04-06 20:00 | NUR ---
INITIAL ASSESSMENT DONE. VITALS WERE TAKEN. PATIENT CONDITION STABLE. WILL CONTINUE TO MONITOR.
--- NOTE | 2019-04-06 21:00 | NUR ---
ALL SCHEDULED MEDS WERE GIVEN. NO ASE NOTED. WILL CONTINUE TO MONITOR.
[2019-04-06] MEDS: AZITHROMYCIN 500 MG in DEXTROSE 5% 250 ML IV SCH (21:06)
--- NOTE | 2019-04-06 22:30 | NUR ---
CHECKED PATIENT. PATIENT SLEEPING RESPIRATION EVEN UNLABORED ON 2L NC. NO DISTRESS NOTED. WILL CONTINUE TO MONITOR.
[2019-04-07] VITALS: BP 135/85
--- NOTE | 2019-04-07 | NUR ---
VITALS WERE TAKEN. PATIENT CONDITION STABLE. NO DISTRESS NOTED. WILL CONTINUE TO MONITOR
--- NOTE | 2019-04-07 02:00 | NUR ---
CHECKED PATIENT. PATIENT SLEEPING RESPIRATION EVEN UNLABORED ON 2L NC. NO DISTRESS NOTED. WILL CONTINUE TO MONITOR.
[2019-04-07 04:00] VITALS: BP 124/73
--- NOTE | 2019-04-07 04:00 | NUR ---
VITALS WERE TAKEN. PATIENT WAS FOUND OFF OXYGEN AND SATING 95% WITH NO DISTRESS NOTED. WILL CONTINUE TO MONITOR.
[2019-04-07] MEDS ORDERED: methylPREDNISolone SS 40 MG/ML VIAL IVP SCH (05:00)
[2019-04-07 05:44] LABS: CARBON DIOXIDE 30.9 mmol/L (21-32); CREATININE 1.1 mg/dL (0.6-1.3); POTASSIUM 4.9 mmol/L (3.5-5.1)
--- NOTE | 2019-04-07 06:00 | NUR ---
RECHECKED PATIENT SPO2%. PATIENT SATING 93% IN ROOM AIR. NO DISTRESS NOTED. WILL CONTINUE TO MONITOR.
[2019-04-07] MEDS: BUDESONIDE 0.5 MG/2 ML NEBU INH SCH ×2 (06:33→19:47)
[2019-04-07] MEDS: BLOOD GLUCOSE MONITORING 1 DEV DEV FS SCH ×4 (06:49→21:02)
[2019-04-07 06:51] LABS: HEMATOCRIT 32.3 % (36-48); HEMOGLOBIN 10.5 g/dL (12.0-16.0); MEAN CORPUSCULAR HEMOGLOBIN 28 pg (27-31); MEAN CORPUSCULAR HGB CONC 33 g/dL (33-37); MEAN CORPUSCULAR VOLUME 86.9 fL (80-94); PLATELET COUNT (AUTO) 416 K/uL (140-450); RED BLOOD CELL COUNT(AUTO) 3.72 MIL/uL (4.20-5.40); RED CELL DISTRIBUTION WIDTH 13.5 % (11.6-13.7)
--- NOTE | 2019-04-07 07:15 | NUR ---
RECEIVED BEDSIDE REPORT FROM BRAKE LINING FINISHER ASBESTOS NURSE. PT IS ASLEEP, NO S/S OF ANY ACUTE DISTRESS OR SOB. PT IS ON 2L O2 NC. SKIN IS INTACT. IV IN THE R AC, 20 G, INFUSING NS 30 ML/HR. PT IS AMBULATORY AND NOT A FALL RISK. CALL LIGHT IS WITHIN REACH WILL CONTINUE TO MONITOR.
--- NOTE | 2019-04-07 07:19 | NUR ---
ENDORSED PATIENT TO PATIENT SERVICES ASSISTANT NURSE. PATIENT IS STABLE AT THIS TIME
[2019-04-07] MEDS ORDERED: METH4TAB3 PO (07:52)
[2019-04-07] MEDS ORDERED: MONT10TA35 PO (07:54)
[2019-04-07 08:00] VITALS: BP 125/79
[2019-04-07 08:23] LABS: WHITE BLOOD COUNT (AUTO) 26.5 K/uL (4.8-10.8)
[2019-04-07 08:24] LABS: LYMPHOCYTES % (MANUAL) 10 % (20-46); MONOCYTES % (MANUAL) 3 % (5-12)
--- NOTE | 2019-04-07 08:33 | NUR ---
PATIENT HAS BEEN SCREENED AND CATEGORIZED HIGH NUTRITION RISK. PATIENT WILL BE SEEN WITHIN 1-2 DAYS OF ADMISSION. 04/07/[address]
[2019-04-07] MEDS ORDERED: predniSONE 20 MG TAB PO SCH (09:00)
--- NOTE | 2019-04-07 09:00 | NUR ---
DR ORTA AWARE OF PT'S WBC 26.5 (UP FROM 10.2)
[2019-04-07] MEDS: LISINOPRIL 5 MG TAB PO SCH (09:28)
[2019-04-07] MEDS: CARVEDILOL 12.5 MG TAB PO SCH ×2 (09:29→20:24)
[2019-04-07] MEDS: FUROSEMIDE 40 MG TAB PO SCH ×2 (09:29→20:24)
[2019-04-07] MEDS: DOCUSATE SODIUM 100 MG GELCAP PO SCH ×2 (09:29→20:24)
[2019-04-07] MEDS: ASPIRIN 81 MG TAB.CHEW PO SCH (09:29)
[2019-04-07] MEDS: ATORVASTATIN 20 MG TAB PO SCH (09:29)
[2019-04-07 12:00] VITALS: BP 123/72
[2019-04-07] MEDS: ALBUTEROL SULFATE/IPRATROPIU 3 ML SOL IH SCH ×2 (12:51→19:47)
--- NOTE | 2019-04-07 14:11 | NUR ---
04/07/19 RD INITIAL ASSESSMENT COMPLETED PLEASE REFER TO NUTRITION ASSESSMENT UNDER CARE ACTIVITY FOR ESTIMATED NUTRITIONAL NEEDS. 1. RECOMMEND CCHO 60 GM AND CARDIAC DIET TOLERATED 2. RECOMMEND GLUCERNA BID 3. RD PROVIDED NUTRITION EDUCATION FOR PULMONARY NUTRITION AND DIABETES 4. RD TO FOLLOW-UP 3-5 DAYS, MODERATE RISK RICK DOBSON RD
[2019-04-07 16:00] VITALS: BP 136/84
--- NOTE | 2019-04-07 16:44 | NUR ---
PT IS SATING 93-94% ON ROOM AIR AT THIS TIME AFTER AMBULATING IN HER ROOM.
--- NOTE | 2019-04-07 17:12 | NUR ---
CONFIRMED WITH DR BAUTISTA THAT PT WILL NOT BE DISCHARGED TODAY DUE TO THE ELEVATED WBC COUNT.
--- NOTE | 2019-04-07 18:33 | NUR ---
TALKED WITH DR JEWELL ABOUT PT'S WBC COUNT, HE SAID TO DC HER SOLUMEDROL AND START PT ON 40 MG PREDNISONE PO DAILY. DR TRUJILLO WAS MADE AWARE OF THIS ORDER.
--- NOTE | 2019-04-07 19:15 | NUR ---
PT ENDORSED TO BLOOD BANK ORDER CONTROL CLERK IN STABLE CONDITION.
--- NOTE | 2019-04-07 19:25 | NUR ---
RECEIVED BEDSIDE REPORT FROM DAY SHIFT NURSE. PATIENT IS AWAKE, ALERT, AND COOPERATIVE. RESPIRATION EVEN UNLABORED ON ROOM AIR. NO DISTRESS NOTED. SKIN IS WARM AND DRY. IV PATENT AND INTACT. PATIENT IS AMBULATORY AND ABLE TO MAKE NEEDS KNOWN. PLAN OF CARE WAS DISCUSSED. ALL SAFETY MEASURES IN PLACE. BED IS AT LOW POSITION. CALL LIGHT WITHIN REACH AND VERBALIZES ITS USE. WILL CONTINUE TO MONITOR.
--- NOTE | 2019-04-07 19:30 | NUR ---
PT ENDORSED TO METAL BALER IN STABLE CONDITION.
[2019-04-07 20:00] VITALS: BP 133/79
--- NOTE | 2019-04-07 20:00 | NUR ---
INITIAL ASSESSMENT DONE. VITALS WERE TAKEN. PATIENT SATING 93-94% ON ROOM AIR WITH NO DISTRESS NOTED. WILL CONTINUE TO MONITOR.
[2019-04-07] MEDS: AZITHROMYCIN 500 MG in DEXTROSE 5% 250 ML IV SCH (20:24)
[2019-04-07] MEDS: INSULIN LISPRO SLIDING SCALE 100 UNITS/ML VIAL SUBQ PRN (21:00)
--- NOTE | 2019-04-07 21:00 | NUR ---
ALL SCHEDULED MEDS WERE GIVEN. PATIENT COMPLAINED OF 6/10 HEADACHE. PRN PAIN MEDS ADMINISTERED WILL CONTINUE TO MONITOR.
[2019-04-07] MEDS: NACL 0.9% 1,000 ML IV SCH (21:02)
--- NOTE | 2019-04-07 22:00 | NUR ---
PATIENT WATCHING TV RESPIRATION EVEN UNLABORED ON ROOM AIR. NO DISTRESS NOTED. WILL CONTINUE TO MONITOR.
[2019-04-08] VITALS: BP 130/82
--- NOTE | 2019-04-08 | NUR ---
VITALS WERE TAKEN. PATIENT CONDITION STABLE. NO DISTRESS NOTED. WILL CONTINUE TO MONITOR.
--- NOTE | 2019-04-08 02:00 | NUR ---
CHECKED PATIENT. PATIENT SLEEPING RESPIRATION EVEN UNLABORED ON ROOM AIR. NO DISTRESS NOTED. WILL CONTINUE TO MONITOR.
[2019-04-08 04:00] VITALS: BP 141/90
--- NOTE | 2019-04-08 04:00 | NUR ---
VITALS WERE TAKEN. PATIENT CONDITION STABLE. NO DISTRESS NOTED. WILL CONTINUE TO MONITOR.
[2019-04-08] MEDS: BLOOD GLUCOSE MONITORING 1 DEV DEV FS SCH (06:04)
[2019-04-08 06:11] LABS: FOLIC ACID 10.8 ng/mL (>3.0)
[2019-04-08 06:18] LABS: ANION GAP 8.1 (8-16); CARBON DIOXIDE 33.3 mmol/L (21-32); POTASSIUM 4.4 mmol/L (3.5-5.1)
[2019-04-08 06:25] LABS: MAGNESIUM 1.9 mg/dL (1.8-2.4); PHOSPHORUS 3.4 mg/dL (2.5-4.9)
[2019-04-08] MEDS: ALBUTEROL SULFATE/IPRATROPIU 3 ML SOL IH SCH (07:01)
[2019-04-08] MEDS: BUDESONIDE 0.5 MG/2 ML NEBU INH SCH (07:09)
--- NOTE | 2019-04-08 07:14 | NUR ---
ENDORSED PATIENT TO DAY SHIFT NURSE. PATIENT IS STABLE AT THIS TIME
[2019-04-08 07:18] LABS: BASOPHILS # (AUTO) 0.1 K/uL (0.00-0.22); BASOPHILS % (AUTO) 0.4 % (0.0-2.0); EOSINOPHILS # (AUTO) 0.1 K/uL (0-0.4); EOSINOPHILS % (AUTO) 0.6 % (0.0-4.0); HEMATOCRIT 32.2 % (36-48); HEMOGLOBIN 10.5 g/dL (12.0-16.0); LYMPHOCYTES # (AUTO) 1.9 K/uL (2.5-16.5); LYMPHOCYTES % (AUTO) 13.1 % (20.5-51.1); MEAN CORPUSCULAR HEMOGLOBIN 28 pg (27-31); MEAN CORPUSCULAR HGB CONC 33 g/dL (33-37); MEAN CORPUSCULAR VOLUME 86.8 fL (80-94); MONOCYTES # (AUTO) 1.1 K/uL (0.8-1.0); MONOCYTES % (AUTO) 7.6 % (1.7-9.3); NEUTROPHILS # (AUTO) 11.5 K/uL (1.8-7.7); NEUTROPHILS % (AUTO) 78.3 % (42.2-75.2); PLATELET COUNT (AUTO) 447 K/uL (140-450); RED BLOOD CELL COUNT(AUTO) 3.71 MIL/uL (4.20-5.40); RED CELL DISTRIBUTION WIDTH 13.3 % (11.6-13.7); WHITE BLOOD COUNT (AUTO) 14.6 K/uL (4.8-10.8)
--- NOTE | 2019-04-08 07:20 | NUR ---
OBTAINED BEDSIDE REPORT FROM PROPOSAL DIRECTOR NURSE. PT IS ASLEEP, NO S/S OF ACUTE DISTRESS OR SOB NOTED. PT IS CURRENTLY ON ROOM AIR. SKIN IS INTACT. IV SITE ON THE R AC 20 G, INFUSING NS 30 ML/HR. PT IS AMBULATORY AND NOT A FALL RISK. CALL LIGHT IS WITHIN REACH, WILL CONTINUE TO MONITOR.
[2019-04-08 07:54] VITALS: BP 147/90
[2019-04-08] MEDS ORDERED: AZIT250T3 PO (08:10)
[2019-04-08] MEDS ORDERED: PRED10TA99 PO (09:51)
--- NOTE | 2019-04-08 10:19 | NUR ---
PT HAS DISCHARGED. PT WAS GIVEN DC INSTRUCTIONS AND EXPLANATION OF PRESCRIPTIONS. IV SITE WAS REMOVED. PT LEFT WITH ALL HER BELONGINGS IN STABLE CONDITION ACCOMPANIED BY HER DAUGHTER.
== END 2019-04-08 10:15 | disposition home or self-care (01) | DRG 720 ==
LOC: MED 16:36 → MTU 21:11
PROVIDERS: ADMIT General Practice; ATTEND General Practice
DX: A41.9 Sepsis, unspecified organism (principal); J96.02 Acute respiratory failure with hypercapnia; E43 Unspecified severe protein-calorie malnutrition; I50.43 Acute on chronic combined systolic (congestive) and diastolic (congestive) heart failure; J18.9 Pneumonia, unspecified organism; I42.7 Cardiomyopathy due to drug and external agent; I11.0 Hypertensive heart disease with heart failure; D64.9 Anemia, unspecified; M94.0 Chondrocostal junction syndrome [Tietze]; I25.10 Atherosclerotic heart disease of native coronary artery without angina pectoris; J44.1 Chronic obstructive pulmonary disease with (acute) exacerbation; J44.0 Chronic obstructive pulmonary disease with (acute) lower respiratory infection; E87.6 Hypokalemia; E11.65 Type 2 diabetes mellitus with hyperglycemia; Z68.23 Body mass index [BMI] 23.0-23.9, adult; Z79.82 Long term (current) use of aspirin; Z79.899 Other long term (current) drug therapy; I25.2 Old myocardial infarction; Z91.19 Patient's noncompliance with other medical treatment and regimen
CPT/HCPCS: 36415; 36600; 71045; 80048; 80053; 80305; 81003; 82150; 82607; 82728; 82746; 82803; 82948; 83036; 83540; 83605; 83690; 83735; 83880; 84100; 84439; 84443; 84484; 85025; 85045; 85610; 85730; 87040; 87081; 93005; 94640; 96361; 96365; 96375; 99285; J0456; J0696; J1644; J1815; J1885; J1956; J2270; J2916; J2930; J3475; J7030; J7060; J7512; J7613; J7620; J7626; Q0092

== ENCOUNTER 2020-09-19 19:15 | Emergency (ER) | payer MEDICAID, SELFPAY ==
[~2020-09-19] VITALS: Ht 154.9 cm; Wt 55.8 kg
[~2020-09-19 19:15] MED LIST changes: -ASPI-1718 PO; +ASPI-1822 PO; +MONT10TA35 PO; +PRED10TA99 PO; +RIVA15TA1 PO
[2020-09-19 19:38] VITALS: BP 134/78
--- NOTE | 2020-09-19 19:40 | NUR ---
triaged and waiting in lobby
--- NOTE | 2020-09-19 21:55 | NUR ---
TRUDY WOODARD EVALUTING PT AT THIS TIME.
[2020-09-19] MEDS ORDERED: ALBUTEROL HFA MDI 90 MCG/ACTUATION 8 GM INH ONE (22:15)
[2020-09-19] MEDS ORDERED: methylPREDNISolone SS 125 MG in WATER STERILE 2 ML IM ONE (22:15)
[2020-09-19] MEDS ORDERED: WATER STERILE 10 ML MC ONE (22:59)
[2020-09-19] MEDS ORDERED: methylPREDNISolone SS 125 MG/2 ML VIAL ONE (22:59)
[2020-09-19] MEDS ORDERED: ALBUTEROL SULFATE/IPRATROPIU 3 ML SOL IH ONE (23:30)
[2020-09-20 00:41] VITALS: BP 138/83
--- NOTE | 2020-09-20 00:41 | NUR ---
Patient discharged with v/s stable. Written and verbal after care instructions given and explained. Patient alert, oriented and verbalized understanding of instructions. Ambulatory with steady gait. All questions addressed prior to discharge. ID band removed. Patient advised to follow up with PMD. Rx of TESSALON PERLES, PREDNISONE, AZITHROMYCIN given. Patient educated on indication of medication including possible reaction and side effects. Opportunity to ask questions provided and answered.
== END 2020-09-20 00:41 | disposition home or self-care (01) ==
LOC: MED 19:15
DX: J45.901 Unspecified asthma with (acute) exacerbation (principal); I11.0 Hypertensive heart disease with heart failure; I50.9 Heart failure, unspecified; J44.9 Chronic obstructive pulmonary disease, unspecified; Z79.899 Other long term (current) drug therapy; Z79.82 Long term (current) use of aspirin
CPT/HCPCS: 71045; 94640; 96372; 99283; J2930

== ENCOUNTER 2020-12-25 16:45 | Inpatient (IN) | payer MEDICAID, SELFPAY ==
[~2020-12-25] VITALS: Ht 152.4 cm; Wt 60.8 kg
[~2020-12-25 16:45] MED LIST changes: -ATOR20TA PO; -LISI-424 PO; +LISI-648 PO; -MONT10TA35 PO; -PRED10TA99 PO; -PUL.5N INH; -RIVA15TA1 PO; +RIVA20TA PO
--- NOTE | 2020-12-25 16:52 | NUR ---
PT TAKEN TO BED 10.
[2020-12-25 16:59] VITALS: BP 122/95
[2020-12-25] MEDS ORDERED: NACL 0.9% 1,000 ML IV ONE (17:10)
--- NOTE | 2020-12-25 17:34 | NUR ---
RAD AT BEDSIDE
--- NOTE | 2020-12-25 17:44 | NUR ---
55 Y/O FEMALE COMPLAINS OF SOB X 4 DAYS. PT SPO2 88% RA, WHEEZING THROUGHOUT LUNGS, TACHYPNEA, PALE SKIN COLOR. PT ALSO COMPLAINS OF ANTERIOR INTERCOASTAL PAIN X MONTHS. PAIN 8/10, PULSATING, LOCAL. PT PUT ON 6L O2 VIA NASAL CANNULA. AO4, BREATHING LABORED, SKIN WAMR AND DRY. BED IN LOWEST POSITION, LOCKED, X1 SIDERAIL UP. PT ON MONITOR. MED HX: COVID IN SEPTEMBER, PE IN SEPTEMBER 2020 NKA
[2020-12-25 17:56] LABS: BASOPHILS # (AUTO) 0.1 K/uL (0.00-0.22); BASOPHILS % (AUTO) 1.3 % (0.0-2.0); EOSINOPHILS # (AUTO) 0.2 K/uL (0-0.4); EOSINOPHILS % (AUTO) 3.7 % (0.0-4.0); HEMATOCRIT 35.2 % (36-48); HEMOGLOBIN 10.9 g/dL (12.0-16.0); LYMPHOCYTES # (AUTO) 1.7 K/uL (2.5-16.5); LYMPHOCYTES % (AUTO) 25.4 % (20.5-51.1); MEAN CORPUSCULAR HEMOGLOBIN 25 pg (27-31); MEAN CORPUSCULAR HGB CONC 31 g/dL (33-37); MEAN CORPUSCULAR VOLUME 79.9 fL (80-94); MONOCYTES # (AUTO) 0.6 K/uL (0.8-1.0); MONOCYTES % (AUTO) 9.8 % (1.7-9.3); NEUTROPHILS # (AUTO) 3.9 K/uL (1.8-7.7); NEUTROPHILS % (AUTO) 59.8 % (42.2-75.2); PLATELET COUNT (AUTO) 360 K/uL (140-450); WHITE BLOOD COUNT (AUTO) 6.5 K/uL (4.8-10.8)
--- NOTE | 2020-12-25 18:05 | NUR ---
INFLUENZA A&B, PCR, AND LUAN COVID SWABS OBTAINED AND TAKEN TO LAB
[2020-12-25 18:06] LABS: C-REACTIVE PROTEIN QUANT 1.1 mg/dL (0.0-0.9)
[2020-12-25 18:07] LABS: PROTHROMBIN TIME 12.6 secs (10.8-13.4)
[2020-12-25 18:14] LABS: ALBUMIN 3.3 g/dL (3.4-5.0); ANION GAP 10.6 (8-16); CARBON DIOXIDE 29.4 mmol/L (21-32); CREATININE 1.2 mg/dL (0.6-1.3); TOTAL BILIRUBIN 1.4 mg/dL (0.0-1.0)
[2020-12-25 18:16] LABS: LACTATE DEHYDROGENASE 279 U/L (81-234)
--- NOTE | 2020-12-25 19:16 | NUR ---
Note undone in EDM - 12/25/20 at 1930 by [facility] BG @1906 122mg/dL NOTICED PT NON FOLLOWING AO0, UNABLE TO FOLLOW INSTRUCTIONS OR VERBALIZED. REASSESS BG @1920 AND READ 32 mg/dL. ERMD MADE AWARE, ADMINSTERED D50 IV. PATIENT AO4, VERBALIZING, ABLE TO FOLLOW INSTRUCTIONS
--- NOTE | 2020-12-25 19:35 | NUR ---
BP 150/121, HR 144. ERMD AWARE. AT BEDSIDE
--- NOTE | 2020-12-25 19:44 | NUR ---
ENDORSEMENT GIVEN TO JULIETA GRAHAM FOR CONTINUATION OF CARE
--- NOTE | 2020-12-25 19:46 | NUR ---
Pt received resting in bed on 15L NR. Pt with hx of asthma, afib, and HTN. A/Ox4. Noted with SOB.
--- NOTE | 2020-12-25 19:53 | NUR ---
PT TACHYCARDIC HR-165 AND HYPERTENSIVE- 151/120. DR. BAUTISTA PAGEOscar AND S/W TRUDY ACUNA TO DISCUSS PLAN OF CARE. PER DR. BAUTISTA WANTS CARDIOLOGY PAGED FOR RECOMMENDATIONS.
--- NOTE | 2020-12-25 20:01 | NUR ---
DR. BAUTISTA GAVE ORDER FOR PT TO BE TRANSFERED TO ICU. ORDER CARRIED OUT.
[2020-12-25 20:29] LABS: RSV NEGATIVE (NEGATIVE)
[2020-12-25] MEDS ORDERED: ZOLPIDEM 5 MG TAB PO PRN (20:35)
[2020-12-25] MEDS ORDERED: HYDROcodone/APAP 7.5/325 MG 1 TAB PO PRN (20:35)
[2020-12-25] MEDS ORDERED: NACL 0.9% 1,000 ML IV SCH (20:35)
[2020-12-25] MEDS ORDERED: DOCUSATE SODIUM 100 MG GELCAP PO PRN (20:35)
[2020-12-25] MEDS ORDERED: POTASSIUM CHLORIDE 10 MEQ TABER PO PRN (20:35)
[2020-12-25] MEDS ORDERED: guaiFENesin DM 200/20 MG-10 ML 10 ML UDC PO PRN (20:35)
[2020-12-25] MEDS ORDERED: ONDANSETRON 4 MG/2 ML VIAL IM/IVP PRN (20:35)
[2020-12-25] MEDS ORDERED: ACETAMINOPHEN 325 MG TAB PO PRN (20:35)
--- NOTE | 2020-12-25 20:43 | NUR ---
Multiple MD's including Dr. Chawla and Dr. Hardwick asked for orders regarding pt in unstable afib ranging from 140-170bpm. NNO received yet. Will continue to f/u with MD's.
[2020-12-25] MEDS ORDERED: AMIODARONE 450 MG in DEXTROSE 5% 250 ML IV ONE (20:55)
[2020-12-25] MEDS ORDERED: LOVENOX 1MG/KG Q12H SUBQ SCH (21:00)
[2020-12-25] MEDS ORDERED: FUROSEMIDE 40 MG TAB PO SCH (21:00)
[2020-12-25] MEDS ORDERED: AMIODARONE 150 MG/3 ML VIAL IV ONE (21:14)
[2020-12-25 21:19] LABS: FREE T4 (FREE THYROXINE) 1.09 ng/dL (0.76-1.46); MAGNESIUM 2.3 mg/dL (1.8-2.4); PHOSPHORUS 4.6 mg/dL (2.5-4.9); THYROID STIMULATING HORMONE 1.88 uIU/mL (0.34-3.74)
[2020-12-25 21:40] LABS: CHOL/HDL RATIO 2.4 (1-4.5)
[2020-12-25 22:00] VITALS: BP 161/104
--- NOTE | 2020-12-25 22:00 | NUR ---
Pt admited to ICU bed 7, bedside report given to Armand. Pt received bolus of 150mg amiodarone over 10min. HR improved to 110-130bpm. Now on continuous amiodarone drip of 1mg/min. 97% on 12L NR mask. Pt transported with RN and plastic technician, with cardiac monitor technician and Amiodarone drip running at 1mg/min. Transported with all belongings.
--- NOTE | 2020-12-25 22:10 | NUR ---
PATIENT CARE AND REPORT RECEIVED FROM RUNNING RIGGERSANTOS RENDON. PATIENT ALERT AND ORIENTED X 4, TO PERSON, PLACE, TIME AND EVENT, [facility] 15. PATIENT ON HIGH FLOW OXYGEN AT 15 LPM. PATIENT STATED FEELING SLIGHTLY SHORT OF BREATH WHENEVER WALKING. PATIENT CONNECTED TO CONTINUOUS CARDIAC MONITORING, HR 130 AND RR 36, SAT UP INTO A HIGH FOWLERS POSITION TO ASSIST PATIENT WITH BREATHING. ON AUSCULTATION OF BREATH SOUNDS, BILATERAL LUNG BASES SLIGHTLY DIMINISHED WITH INSPIRATORY AND EXPIRATORY WHEEZES PRESENT. HEART SOUNDS IRREGULAR AND S1/S2 HEARD. ABDOMINAL SOUNDS NORMOACTIVE IN ALL 4 QUADRANTS AND FLAT IN APPEARANCE. SKINS INTACT. PATIENT IV ACCESS SITES INCLUDE LEFT HAND 20 G AND RIGHT AC 20 G. DRIPS RUNNING CURRENTLY INCLUDE AMIODARONE AT 1 MG/MIN AND NS AT 30 ML/HR. PATIENT WEIGHT IS 61 KG. PATIENT IS ABLE TO USE BEDSIDE COMMODE WITH ASSISTANCE. BED IS LOCKED AND LOWERED INTO A POSITION OF SAFETY AND PATIENT PLACED IN A POSITION OF COMFORT. WILL CONTINUE TO CLOSELY MONITOR AND FREQUENTLY ROUND THROUGHOUT THE SHIFT.
[2020-12-25] MEDS: carvediloL 12.5 MG TAB PO SCH (22:37)
[2020-12-25] MEDS: FUROSEMIDE 40 MG/4 ML VIAL IVP SCH (22:37)
[2020-12-25] MEDS: ENOXAPARIN 60 MG/0.6 ML SYR SUBQ SCH (22:39)
[2020-12-25 23:00] VITALS: BP 160/125
[2020-12-25 23:19] LABS: APPEARANCE,URINE CLEAR (CLEAR); BILIRUBIN,URINE NEGATIVE (NEGATIVE); BLOOD, URINE 1+ (NEGATIVE); COLOR,URINE YELLOW (YELLOW); LEUKOCYTE ESTERASE ,URINE NEGATIVE (NEGATIVE); NITRITE, URINE NEGATIVE (NEGATIVE); UGLUCOSE NEGATIVE (NEGATIVE)
[2020-12-25 23:36] LABS: RBC,URINE 0-5 /HPF (0-5)
[2020-12-25 23:46] LABS: BARBITURATE, URINE NEGATIVE ng/ml (NEG <=200); BENZODIAZEPINE, URINE NEGATIVE ng/mL (NEG <=200); CANNABINOID, URINE NEGATIVE ng/mL (NEG <=50); COCAINE, URINE NEGATIVE ng/mL (NEG <=300); OPIATE, URINE NEGATIVE ng/mL (NEG <=2000); PHENCYCLIDINE SCREEN,URINE NEGATIVE ng/mL (NEG <=25)
[2020-12-26] VITALS (47 sets, daily range): BP systolic 51–140; BP diastolic 23–96
[2020-12-26] LABS: HYALINE CASTS, URINE 0-5 /LPF (None Seen)
--- NOTE | 2020-12-26 | NUR ---
PATIENT CURRENTLY RESTING IN A POSITION OF COMFORT, TOLERATING CURRENT HIGH FLOW OXYGEN WELL, WILL CONTINUE TO CLOSELY MONITOR AND FREQUENTLY ROUND.
--- NOTE | 2020-12-26 00:50 | NUR ---
CALLED DR. SIMON REGARDING CONTINUING AMIODARONE ORDER, ORIGINAL ORDER WAS DC, DR. SIMON GAVE VERBAL ORDER TO CONTINUE AMIODARONE ORDER AND FOLLOW PROTOCOL. WILL CARRY OUT ORDERS.
[2020-12-26] MEDS ORDERED: AMIODARONE 450 MG in DEXTROSE 5% 250 ML IV SCH (01:00)
[2020-12-26] MEDS ORDERED: ETOMIDATE 20 MG/10 ML VIAL IVP ONE ×2 (01:25)
[2020-12-26] MEDS ORDERED: SUCCINYLCHOLINE CHLORIDE 200 MG/10 ML VIAL IVP ONE ×2 (01:25)
[2020-12-26] MEDS ORDERED: NOREPINEPHRINE 4 MG/4 ML VIAL IV ONE (01:32)
--- NOTE | 2020-12-26 01:35 | NUR ---
PATIENT STATED FEELING SLIGHTLY MORE DIFFICULTY IN BREATHING WITH CURRENT HIGH FLOW THERAPY. PER REASSESSMENT AUSCULTATION OF LUNG SOUNDS, BILATERAL SUPERIOR LUNG ELMORE CLEAR, BASES CONTINUE TO BE DIMINISHED WITH PRESENT INSPIRATORY AND EXPIRATORY WHEEZES. PATIENT PRESENTING WITH WORSENING SHORT OF BREATH, OXYGEN SATURATION 85%, HR 59 BPM ON THE MONITOR. CALLED RAPID RESPONSE TO BEDSIDE
--- NOTE | 2020-12-26 01:37 | NUR ---
AT BEDSIDE WITH PATIENT, RAPID RESPONSE CALLED TO BEDSIDE AT 0137, ER MD, ICU DIRECTOR SPEECH LANGUAGE AND XRAY ARRIVED PROMPTLY.
--- NOTE | 2020-12-26 01:47 | NUR ---
PATIENT INTUBATED AT 0147, PLACED ON VENT, VENT SETTINGS PRVC, TV 400, PEEP 8, RR 18, FIO2 90%. WILL CONTINUE TO CLOSELY MONITOR AND FREQUENTLY ROUND.
--- NOTE | 2020-12-26 02:00 | NUR ---
TIME ADJUSTMENT FOR DAYLIGHT SAVINGS IN EFFECT.
[2020-12-26] MEDS ORDERED: PROPOFOL 1000 MG/100 ML PREMIX 100 ML IV ONE (03:23)
--- NOTE | 2020-12-26 03:27 | NUR ---
PT WAS INTUBATED W/ 7.5 ETT SECURED @ 24CM LIP LINE. PT PLACED ON VENT SETTINGS OF PRVC 350 +8, f18 100%. ABG WAS UN-OBTAINABLE AT THIS TIME DUE TO LOW BP. WILL ATTEMPT AGAIN AT A LATER TIME. CXR WAS TAKEN PENDING INTERP FOR TUBE PLACEMENT. AMBU AT BEDSIDE VENT PLUGGED INTO RED OUTLET WILL CONTINUE TO MONITOR Addendum: 12/26/20 at 332 by Jamel Carpio Jr RT PT HAD PEAK HIGH PEAK PRESSURES ON AC/VC THEN MODE WAS SWITCHED TO PRVC. Addendum: 12/26/20 at 335 by Jr AMIRAH Osorio CORRECTION VT 400
[2020-12-26] MEDS ORDERED: NOREPINEPHRINE 4 MG in DEXTROSE 5% 250 ML IV PRN (03:40)
--- NOTE | 2020-12-26 03:40 | NUR ---
NIETO CATHETER INSERTED PER ORDER, INTACT, PATENT, DRAINING WELL AND SECURED TO PATIENT. WILL CONTINUE TO CLOSELY MONITOR.
[2020-12-26] MEDS: MORPHINE SULFATE 50 MG in NACL 0.9% 45 ML IV PRN ×2 (03:45→19:50)
--- NOTE | 2020-12-26 03:45 | NUR ---
LEFT NARE NG TUBE INSERTED, ASPIRATED, AUSCULTATED, AND XRAY COMPLETED. WILL CONTINUE TO MONITOR
[2020-12-26] MEDS: PROPOFOL 1000 MG/100 ML PREMIX 100 ML IV PRN ×2 (03:50→12:58)
--- NOTE | 2020-12-26 04:00 | NUR ---
PATIENT TOLERATING VENT, SEDATION, AND OTHER CONCURRENT MEDICATION THERAPIES WELL. WILL CONTINUE TO CLOSELY MONITOR AND FREQUENTLY ROUND.
--- NOTE | 2020-12-26 04:01 | NUR ---
SPOKE W/ DR BAUTISTA AND INFORMED HIM OF CRITICAL ABG NO VENT CHANGES AT THIS TIME
[2020-12-26] MEDS ORDERED: AMIODARONE 450 MG/9 ML VIAL IV ONE (04:18)
--- NOTE | 2020-12-26 04:25 | NUR ---
FIO2 TITRATED TO 90%
--- NOTE | 2020-12-26 05:45 | NUR ---
RT TITRATED FIO2 TO 60%, PATIENT TOLERATING ADJUSTED VENT SETTINGS, WILL CONTINUE TO CLOSELY MONITOR AND FREQUENTLY ROUND.
--- NOTE | 2020-12-26 05:54 | NUR ---
PROGRESS NOTE UPDATE. PATIENT ETT TO VENT, VENT SETTINGS AC PRVC, VT 400, PEEP 8, RR 18, FIO2 60%. CURRENTLY TOLERATING THERAPIES. NPO EXCEPT MEDS. LEFT NARE NG TUBE IN PLACE, INTACT, PATENT AND SECURED. CONTINUOUS CARDIAC MONITORING HR 57 AND RESPIRATIONS 24 ON THE MONITOR. CURRENT IV ACCESS SITES INCLUDE RIGHT AC 20G PERIPHERAL IV AND RIGHT IJ 18G SALINE LOCK. IV DRIPS CURRENTLY RUNNING INCLUDE AMIODARONE AT 0.5 MG/MIN, NS AT 30 ML/HR, 10 MCG/KG/MIN, MORPHINE AT 1 MG/HR, AND LEVOPHED 8 MCG/MIN. NIETO CATHETER INTACT, PATENT, DRAINING WELL AND SECURED. WILL CONTINUE TO CLOSELY MONITOR AND FREQUENTLY ROUND.
--- NOTE | 2020-12-26 06:00 | NUR ---
FAMILY CONTACTED AND UPDATED ON CURRENT STATUS.
[2020-12-26 06:14] LABS: BASOPHILS % (AUTO) 0.3 % (0.0-2.0); HEMATOCRIT 39.1 % (36-48); HEMOGLOBIN 11.8 g/dL (12.0-16.0); LYMPHOCYTES # (AUTO) 0.5 K/uL (2.5-16.5); MEAN CORPUSCULAR HEMOGLOBIN 25 pg (27-31); MEAN CORPUSCULAR HGB CONC 30 g/dL (33-37); MEAN CORPUSCULAR VOLUME 82.5 fL (80-94); MONOCYTES # (AUTO) 0.8 K/uL (0.8-1.0); MONOCYTES % (AUTO) 5.2 % (1.7-9.3); NEUTROPHILS # (AUTO) 14.4 K/uL (1.8-7.7); PLATELET COUNT (AUTO) 330 K/uL (140-450); RED BLOOD CELL COUNT(AUTO) 4.73 MIL/uL (4.20-5.40); RED CELL DISTRIBUTION WIDTH 18.5 % (11.6-13.7); WHITE BLOOD COUNT (AUTO) 15.8 K/uL (4.8-10.8)
[2020-12-26 06:51] LABS: LYMPHOCYTES % (AUTO) 3.1 % (20.5-51.1); NEUTROPHILS % (AUTO) 91.4 % (42.2-75.2)
--- NOTE | 2020-12-26 07:10 | NUR ---
AT BEDSIDE WITH PATIENT GIVING DAYSHIFT RN REPORT. PATIENT BEGAN TO SLOWLY [place] DOWN INTO THE 40'S AND 30'S. PULSES CHECKED, NO PULSES FOUND, CALLED CODE BLUE @ 0710 AT BEDSIDE AND IMMEDIATELY INITIATED CPR INTERVENTIONS. ACHIEVED ROSC @ 0715. XRAY OBTAINED AT BEDSIDE. SEE CODE PAPER NOTES.
[2020-12-26] MEDS ORDERED: DEXTROSE 50% 50 ML SYR IVP ONE (07:30)
--- NOTE | 2020-12-26 07:30 | NUR ---
DURING BEDSIDE HANDOVER PT BECAME BRADYCARDIC IN 30S AND DESATURATED TO 60S ON FIO2 50% WITH ET TUBE TO VENTILATOR. MAPS IN 40S WITH LEVOPHED AT 24 MCG/MIN. PT PULSELESS AT 0710 CODE BLUE CALLED AND COMPRESSIONS BEGAN. ROSC AT 0715. SEE MAR FOR MEDICATIONS ADMINISTERED. L IJ PLACED BY AFTER CODE FOR USE OF PRESSORS. CONSENT RECEIVED FROM FAMILY. AUDIO VISUAL DESIGN ENGINEER REQUESTING EPINEPHRINE AND DOBUTAMINE FOR PRESSURE SUPPORT. WILL CONTINUE TO MONITOR AND ASSESS.
--- NOTE | 2020-12-26 07:30 | NUR ---
PATIENT CARE AND REPORT ENDORSED TO KIKO GRAHAM.
[2020-12-26] MEDS ORDERED: PHENYLEPHRINE 10 MG/ML VIAL ONE ×2 (07:31→19:52)
[2020-12-26] MEDS ORDERED: EPINEPHrine 1:1000 (1 mg/mL) 1 MG in DEXTROSE 5% 250 ML IV PRN (08:35)
[2020-12-26] MEDS ORDERED: DOPamine 400 MG/D5W PREMIX 250 ML IV PRN (08:35)
[2020-12-26] MEDS ORDERED: DOBUTamine 500 MG/D5W PREMIX 250 ML IV ONE (08:57)
[2020-12-26] MEDS: PANTOPRAZOLE 40 MG TABEC PO SCH (09:00)
[2020-12-26] MEDS: ENOXAPARIN 60 MG/0.6 ML SYR SUBQ SCH ×2 (09:00→21:02)
[2020-12-26] MEDS: FUROSEMIDE 40 MG/4 ML VIAL IVP SCH ×2 (09:00→17:02)
[2020-12-26] MEDS: ASPIRIN 81 MG TAB.CHEW PO SCH (09:00)
[2020-12-26] MEDS: carvediloL 12.5 MG TAB PO SCH ×2 (09:00→21:00)
[2020-12-26] MEDS: lisinopriL 5 MG TAB PO SCH (09:00)
[2020-12-26 10:43] LABS: CARBON DIOXIDE 20.3 mmol/L (21-32); CREATININE 1.9 mg/dL (0.6-1.3)
[2020-12-26 10:52] LABS: POTASSIUM 6.3 mmol/L (3.5-5.1)
[2020-12-26] MEDS ORDERED: SODIUM ZIRCONIUM CYCLOSILICATE 10 GM POWD.PACK PO SCH (11:00)
--- NOTE | 2020-12-26 11:00 | NUR ---
CRITICAL LAB RESULT: K+ 6.[address] BAUTISTA. REQUESTED LOKELMA TO BE GIVEN ONE TIME PER G TUBE. UPON RECHECK, K+ RESULTED 4.3. WILL CONTINUE TO MONITOR AND ASSESS.
--- NOTE | 2020-12-26 12:00 | NUR ---
BP NEEDS INCREASING DRASTICALLY. NOTIFIED MD OF CHANGES IN BP. MAPS IN 40S. MD CALLED FAMILY TO DISCUSS CODE STATUS , BUT FAMILY WANTING TO CONTINUE FULL CODE STATUS AND ALL MEASURES. CURRENTLY MAXED ON EPINEPHRINE AND DOBUTAMINE. LEVOPHED RUNNING AT 24 MCG/MIN. NEOSYNEPHRINE RUNNING AT 100 MCG/KG/MIN. WILL CONTINUE TO TITRATE AVAILABLE PRESSORS NEEDED.
[2020-12-26] MEDS: DOBUTamine 500 MG/D5W PREMIX 250 ML IV SCH ×2 (12:05→21:46)
[2020-12-26] MEDS: PHENYLEPHRINE 40 MG in NACL 0.9% 250 ML IV PRN (13:34)
--- NOTE | 2020-12-26 15:00 | NUR ---
PER NURSING FITTING ROOM ASSOCIATE OKAY FOR FAMILY MEMBERS TO SEE PT DUE TO SEVERITY OF CARDIOGENIC SHOCK. NURSING FITTING ROOM ASSOCIATE ASSISTED ALL FAMILY MEMBERS TO SEE PT THROUGH WINDOW. INSTRUMENTATION SPECIALIST EXPLAINED AND EDUCATED FAMILY ON CURRENT RESPIRATORY AND CARDIAC STATUS. FAMILY VERBALIZED UNDERSTANDING.
[2020-12-26] MEDS ORDERED: MIDAZOLAM MDV 100 MG in NACL 0.9% 80 ML IV PRN (15:30)
[2020-12-26] MEDS ORDERED: fentaNYL citrate 2.5 MG in NACL 0.9% 200 ML IV PRN (15:30)
[2020-12-26] MEDS ORDERED: CALCIUM GLUCONATE 10% 2,000 MG in NACL 0.9% 100 ML IV SCH (16:00)
[2020-12-26 18:22] LABS: ANION GAP 13.8 (8-16); CARBON DIOXIDE 25.9 mmol/L (21-32); CREATININE 2.3 mg/dL (0.6-1.3); POTASSIUM 4.7 mmol/L (3.5-5.1)
[2020-12-26] MEDS ORDERED: MORPHINE SULFATE 10 MG/ML VIAL ONE (19:15)
--- NOTE | 2020-12-26 19:20 | NUR ---
RECIEVED BEDSIDE REPORT FROM DAY SHIFT RN, PT IN CRITICAL CONDTITION, SEDATED RASS -3, LYING IN BED SUPINE W/ HOB 30 DEGREES AND BED LOW, SR ON MONITOR, HYPOTENSIVE, PERIPHERAL PULSES PALPABLE TO TOUCH, ETT TO VENT ACPRVC TV 375 FIO2 28% PEEP 6 RATE 20, ABD SOFT AND NON TENDER TO TOUCH, SKIN WARMA AND DRY TO TOUCH, AFEBRILE, BEAR HUGGER IN PLACE, SKIN INTACT, FC IN PLACE DRAINING VIA GRAVITY W/ LIGHT IRIS URINE, LIJ TL INFUSING DOBUTAMINE, EPINEPHRINE, LEVOPHED, NEOSYNEPHRINE AND MORPHINE, PT SHOWING NO SIGNS OF ACUTE DISTRESS AT THE MOMENT, SAFETY MEASURES IN PLACE, WILL CONTINUE WITH CURRENT POC
--- NOTE | 2020-12-26 21:30 | NUR ---
ADMINISTERED 2100H MEDICATIONS PER ORDERED, DID NOT ADMINISTER CARVIDOOL D/T LOW BP
[2020-12-26] MEDS: NOREPINEPHRINE 16 MG in DEXTROSE 5% 250 ML IV PRN (22:56)
--- NOTE | 2020-12-26 23:53 | NUR ---
REPOSITIONED PT, ORAL CARE AND SUCTIONING PERFORMED, PT AFEBRILE AND SHOWING NO SIGNS OF ACUTE DISTRESS
[2020-12-26] MEDS: EPINEPHrine 1:1000 (1 mg/mL) 6 MG in DEXTROSE 5% 250 ML IV PRN (23:55)
[2020-12-27] VITALS (20 sets, daily range): BP systolic 57–131; BP diastolic 33–75
[2020-12-27] MEDS ORDERED: PHENYLEPHRINE 10 MG/ML VIAL ONE ×2 (00:36→04:30)
[2020-12-27] MEDS: PHENYLEPHRINE 40 MG in NACL 0.9% 250 ML IV PRN ×2 (00:42→09:55)
[2020-12-27] MEDS ORDERED: NOREPINEPHRINE 4 MG/4 ML VIAL IV ONE (01:33)
--- NOTE | 2020-12-27 02:24 | NUR ---
PT HYPOTENSIVE, HR DECREASED TO 50'S, PT STARTED TO TURN BLUE, CHECKLED FOR PULSE AND NO PULSE FELT, CODE BLUE INITIATED
--- NOTE | 2020-12-27 02:39 | NUR ---
CODE WAS CALLED APPROX 02:25 ON PT AND ROSC WAS OBTAINED AFTER 1 ROUND OF COMPRESSIONS. ABG IS BEING DRAWN AND FIO2 TITRATED TO 70% ON VENT WILL CONTINUE TO MONITOR
--- NOTE | 2020-12-27 02:40 | NUR ---
CALLED MARK JAVIER, PATIENT'S SON AND UPDATED ON PATIENT'S MEDICAL CONDITION; HE SAID HE STILL WANTS A FULL RESUSCITATION IN CASE HER MOTHER STOPS BREATHING AND NO PULSE.
--- NOTE | 2020-12-27 02:40 | NUR ---
DR SALINAS CALLED AND UPDATED IN REGARDS TO PTS STATUS
--- NOTE | 2020-12-27 02:55 | NUR ---
FIO2 TITRATED BACK TO 28%
[2020-12-27] MEDS: NOREPINEPHRINE 16 MG in DEXTROSE 5% 250 ML IV PRN ×2 (03:09→12:30)
[2020-12-27] MEDS: EPINEPHrine 1:1000 (1 mg/mL) 6 MG in DEXTROSE 5% 250 ML IV PRN ×2 (05:18→10:02)
[2020-12-27] MEDS: DOBUTamine 500 MG/D5W PREMIX 250 ML IV SCH ×3 (05:22→12:34)
--- NOTE | 2020-12-27 05:22 | NUR ---
ORAL CARE AND SUCTIONING PERFORMED, REPOSITIONED PT, PT STILL IN CRITICAL CONDITION
[2020-12-27 05:46] LABS: BASOPHILS # (AUTO) 0.1 K/uL (0.00-0.22); BASOPHILS % (AUTO) 0.8 % (0.0-2.0); EOSINOPHILS # (AUTO) 0.2 K/uL (0-0.4); EOSINOPHILS % (AUTO) 2.2 % (0.0-4.0); HEMATOCRIT 31.3 % (36-48); LYMPHOCYTES # (AUTO) 0.8 K/uL (2.5-16.5); LYMPHOCYTES % (AUTO) 11.5 % (20.5-51.1); MEAN CORPUSCULAR HEMOGLOBIN 25 pg (27-31); MEAN CORPUSCULAR HGB CONC 32 g/dL (33-37); MEAN CORPUSCULAR VOLUME 79.5 fL (80-94); MONOCYTES # (AUTO) 0.3 K/uL (0.8-1.0); MONOCYTES % (AUTO) 4.2 % (1.7-9.3); NEUTROPHILS # (AUTO) 5.8 K/uL (1.8-7.7); NEUTROPHILS % (AUTO) 81.3 % (42.2-75.2); PLATELET COUNT (AUTO) 239 K/uL (140-450); RED BLOOD CELL COUNT(AUTO) 3.94 MIL/uL (4.20-5.40); RED CELL DISTRIBUTION WIDTH 18.2 % (11.6-13.7); WHITE BLOOD COUNT (AUTO) 7.1 K/uL (4.8-10.8)
[2020-12-27 06:00] LABS: ANION GAP 13.7 (8-16); CARBON DIOXIDE 24.8 mmol/L (21-32); CREATININE 2.8 mg/dL (0.6-1.3); POTASSIUM 4.5 mmol/L (3.5-5.1)
[2020-12-27 07:00] LABS: HEMOGLOBIN 9.9 g/dL (12.0-16.0)
--- NOTE | 2020-12-27 07:25 | NUR ---
ENDORSED TO DAY SHIFT RN FOR CONTINUITY OF CARE
--- NOTE | 2020-12-27 07:40 | NUR ---
BEDSIDE REPORT RECEIVED FROM POLE LIFT OPERATOR RN. PT LYING IN BED, INTUBATED, NO RESPONSE TO NOXIOUS STIMULI. ETT TO VENT, 28%FI02, 365 TIDAL, PEEP 6, AND 20RR. CURRENTLY NSR ON THE TELE MONITOR. NG TUBE IN LEFT NARE, NPO EXCEPT FOR MEDS. LEFT IJ TRIPLE LUMEN RUNNING DOBUTAMINE @40MCG, EPI @10MCG, LEVO @30MCG, DILLAN-SYNEPHRINE@150MCG AND NS @30CC/HR. NIETO CATHETER IN PLACE. BED IN LOW POSITION, ALL SAFETY PRECAUTIONS IN PLACE, WILL CONTINUE TO MONITOR.
[2020-12-27 08:08] LABS: T4 (THYROXINE) 6.4 ug/dL (4.5-12.0)
[2020-12-27] MEDS: ASPIRIN 81 MG TAB.CHEW PO SCH (08:11)
[2020-12-27] MEDS: PANTOPRAZOLE 40 MG TABEC PO SCH (08:11)
[2020-12-27] MEDS: FUROSEMIDE 40 MG/4 ML VIAL IVP SCH (08:11)
[2020-12-27] MEDS: ENOXAPARIN 60 MG/0.6 ML SYR SUBQ SCH (08:12)
[2020-12-27] MEDS: lisinopriL 5 MG TAB PO SCH (08:14)
[2020-12-27] MEDS: carvediloL 12.5 MG TAB PO SCH (08:14)
--- NOTE | 2020-12-27 08:30 | NUR ---
NG TUBE AUSCULTATION AND RESIDUAL CHECK COMPLETED. AM MEDICATIONS GIVEN TO PT, TOLERATED WELL. AM CARE COMPLETED. WILL CONTINUE TO MONITOR.
--- NOTE | 2020-12-27 08:42 | NUR ---
DR. OSBORNE SEEING PT
--- NOTE | 2020-12-27 09:02 | NUR ---
PATIENT HAS BEEN SCREENED AND CATEGORIZED HIGH NUTRITION RISK. PATIENT WILL BE SEEN WITHIN 1-2 DAYS OF ADMISSION. 12/27/[address]
--- NOTE | 2020-12-27 10:59 | NUR ---
DC PLANN[age] YRS OLD FEMALE PATIENT WAS ADMITTED FROM HOME WITH A DX OF HYPOXIA. PT HAS A HX OF ASTHMA, COVID-19 PNA ,HTN, METH ABUSE PE, HE WITH EF 10-15% , CARDIOMYOPATHY, COPD AND DM. CXR SHOWED CARDIOMEGALY . PT INTUBATED SEDATED.ON DOPAMINE, LEVO & EPI DRIP. PCR COVID PENDING. CONSULTED WITH CARDIO, PULMO AND NEPHRO. DC PLAN PER PT RESPONSE WITH THE TREATMENT. CM TO FOLLOW
--- NOTE | 2020-12-27 11:33 | NUR ---
SOCIAL WORK NOTE: Patient's Orientation Unable To Assess Information Provided By MARK JAVIER - SON Comments SW WAS UNABLE TO MEET PATIENT AT BEDSIDE. SW COMPLETED ASSESSMENT WITH PATIENT'S SON. Surface Plate Finisher, Realtionship and Phone Number MARK GRAY [phone] Healthcare Power of Catalog Librarian No Does Patient Have a POLST No Identifying Problems No Social Work Triggers Is A Social Work Consult Needed No Mandate Report Filed No Explanation Of Identifying Problems PATIENT IS A 55-YEAR-OLD FEMALE ADMITTED FOR HYPOXIA. PATIENT HAS PMHX OF METHAMPHETAMINE ABUSE, ASTHMA, AND HYPERTENSION. SW WAS UNABLE TO COMPLETE ASSESSMENT WITH PATIENT AT THIS TIME. SW CONTACTED PATIENT'S SON TO COMPLETE ASSESSMENT. PATIENT'S SON DENIED SUBSTANCE ABUSE AND MENTAL HEALTH HISTORY. SW WILL MEET PATIENT AT BEDSIDE TO PROVIDE SUBSTANCE ABUSE RESOURCES. Admitted From Home Pre-Admission Level Of Functioning Status Independent/Ambulatory Prior Resources/Services Used In Last 12 Months No Prior Resources Used Prior DME No Prior DME Used Living Situation Lives With Family House Patient Had Caregiver No Home Support No Caregiver Issues Financial Issues No Known Financial Issue Referral To The Financial Counselor Needed No Factors/Needs No D/C Needs Identified Pt/Rep Participated In Discharge Plan Yes Patient/Family Agress With Discharge Plan Yes Discharge Plan Comments TENTATIVE DISCHARGE PLAN IS FOR PATIENT TO RETURN HOME. DC Plan Status Initiated
--- NOTE | 2020-12-27 13:05 | NUR ---
PT FOUND TO BE PULSELESS IN PEA ON MONITOR. CODE BLUE INITIATED, SEE CODE BLUE SHEET FOR DETAILS.
--- NOTE | 2020-12-27 13:15 | NUR ---
PT AT 1315, PRONOUNCED BY ER MD DR. GALLARDO. RESIDENT NELLY CHILD TO INFORM DR. SALINAS SO THAT FAMILY CAN BE NOTIFIED.
--- NOTE | 2020-12-27 13:49 | NUR ---
PBX CALLED SAYING SON MARK IS IN FRONT LOBBY TO SEEING PT. NOTIFIED DR. SALINAS THAT HE HAS NOT YET BEEN INFORMED THAT PT JUST PASSED. DR. SALINAS PLANS TO GO OUT AND SEE MARK AND LET HIM KNOW ABOUT PT'S PASSING.
--- NOTE | 2020-12-27 13:56 | NUR ---
1355 CALLED HEALTH OCCUPATIONS TEACHER SPOKE WITH OSMAR, WAITING FOR DEPUTY CALL BACK.
--- NOTE | 2020-12-27 14:00 | NUR ---
PER SPARMAKER JESUSITA, HE AND DR. SALINAS SPOKE TO SON MARK. OKAY FOR MARK TO COME BACK AND SEE PT.
--- NOTE | 2020-12-27 14:05 | NUR ---
SPOKE WITH DEPUTY Elysia ZURITA. NOT A TURKEY PICKER'S CASE, AND OKAY TO RELEASE BODY. TURKEY PICKER[employer]S OFFICE NUMBER IS [id number]
--- NOTE | 2020-12-27 14:15 | NUR ---
SPOKE TO HOME [place] FROM [facility]. REFERRAL NUMBER [phone]. WILL BE RETURNING A CALL IF PT IS A CANDIDATE.
--- NOTE | 2020-12-27 14:35 | NUR ---
SON MARK AND DAUGHTER AT BEDSIDE. ALL PT BELONGINGS SEND WITH MARK AND SIGNED FOR BY HIM.
--- NOTE | 2020-12-27 15:10 | NUR ---
DAUGHTER AT BEDSIDE. ANSWERED QUESTIONS TO THE BEST OF MY ABILITY. STATED THAT HER GRANDMOTHER PLANS TO CALL MANAGING SUPERVISOR TO INFORM MORTUARY OF CHOICE. MANAGING SUPERVISOR NOW HANDLING.
--- NOTE | 2020-12-27 15:52 | NUR ---
RECEIVED CALL BACK FROM [facility], PROVIDED THEM WITH NEEDED INFORMATION. NO FURTHER UPDATES AT THIS TIME.
--- NOTE | 2020-12-27 16:55 | NUR ---
BODY TAKEN TO FREEZER BY SECURITY AND HOME DECORATOR MILES.
== END 2020-12-27 16:55 | DRG 720 ==
LOC: MED 16:45 → MIC 18:54
PROVIDERS: ADMIT Family Medicine; ATTEND Family Medicine
PROC: 5A12012 Performance of Cardiac Output, Single, Manual (ICD-10-PCS; 2020-12-25)
PROC: 5A1945Z Respiratory Ventilation, 24-96 Consecutive Hours (ICD-10-PCS; principal; 2020-12-26)
PROC: 0BH17EZ Insertion of Endotracheal Airway into Trachea, Via Natural or Artificial Opening (ICD-10-PCS; 2020-12-26)
DX: A41.9 Sepsis, unspecified organism (principal); J69.0 Pneumonitis due to inhalation of food and vomit; I42.9 Cardiomyopathy, unspecified; E11.9 Type 2 diabetes mellitus without complications; Z20.822 Contact with and (suspected) exposure to COVID-19; I46.9 Cardiac arrest, cause unspecified; I50.43 Acute on chronic combined systolic (congestive) and diastolic (congestive) heart failure; I42.7 Cardiomyopathy due to drug and external agent; T43.625A Adverse effect of amphetamines, initial encounter; Y92.89 Other specified places as the place of occurrence of the external cause; J44.9 Chronic obstructive pulmonary disease, unspecified; I25.10 Atherosclerotic heart disease of native coronary artery without angina pectoris; I26.99 Other pulmonary embolism without acute cor pulmonale; D64.9 Anemia, unspecified; R80.9 Proteinuria, unspecified; R31.9 Hematuria, unspecified; I34.0 Nonrheumatic mitral (valve) insufficiency; E44.1 Mild protein-calorie malnutrition; Z91.19 Patient's noncompliance with other medical treatment and regimen; Z68.26 Body mass index [BMI] 26.0-26.9, adult; I11.0 Hypertensive heart disease with heart failure; J96.01 Acute respiratory failure with hypoxia; I48.0 Paroxysmal atrial fibrillation; Z90.721 Acquired absence of ovaries, unilateral; R65.20 Severe sepsis without septic shock
CPT/HCPCS: 31500; 36415; 36600; 71045; 80048; 80053; 80305; 81001; 82150; 82550; 82728; 82803; 83036; 83605; 83615; 83690; 83735; 83880; 84100; 84436; 84439; 84443; 84479; 84484; 85025; 85379; 85384; 85610; 85730; 86140; 87040; 87081; 87086; 87420; 87804; 92950; 93005; 94002; 94003; 96360; 99291; J0171; J0282; J0330; J0610; J0696; J1265; J1650; J1940; J2250; J2270; J2370; J2704; J3010; J3490; J7030; J7060; U0003